=== PATIENT | female | born 1940 | race Caucasian/White ===

== ENCOUNTER 2024-08-17 15:58 | Inpatient (IN) | payer MEDICARE, SELFPAY ==
[2024-08-17 13:13] VITALS: BP 144/73
[2024-08-17 13:26] VITALS: BMI 36.7
[2024-08-17 14:21] LABS: % Basophils 0.5 % (0-2); % Eosinophils 0.1 % (0-6); % Immature Granulocytes 0.4 % (0-0.5); % Lymphocytes 7.2 % (20.5-51.1); % Monocytes 5.4 % (1.7-9.3); % Neutrophils 86.4 % (42.2-75.2); Absolute Basophils 0.1 10^3/uL (0-0.2); Absolute Lymphocytes 0.8 10^3/uL (1.2-3.4); Absolute Monocytes 0.6 10^3/uL (0.1-0.6); Absolute Neutrophils 9.7 10^3/uL (1.4-6.5); Hematocrit 27.8 % (37.0-47.0); Hemoglobin 8.5 g/dL (12.0-16.0); Mean Corp Hgb Conc. 30.6 g/dL (33.0-37.0); Mean Corpuscular Hgb 29.3 pg (27.0-31.0); Mean Corpuscular Volume 95.9 fL (81.0-99.0); Nucleated Red Blood Cells % 0 %; Platelet Count 325 10^3/uL (130-400); Red Cell Dist. Width 17.4 % (11.5-14.5); White Blood Cell Count 11.3 10^3/uL (4.8-10.8)
--- NOTE | 2024-08-17 14:35 | ED.GENMED ---
History of Present Illness
General
Chief Complaint: Breathing Problem
Time Seen by Provider: 08/17/24 13:28
History of Present Illness
History of Present Illness:
84-year-old female with history of metastatic colon cancer currently on Keytruda (managed at [facility]) presents the emergency department for evaluation of shortness of breath over the past several days. She was apparently confused earlier today as
well cording to family. She denies chest pain. Has also noted increasing leg swelling in the past week. No fevers or chills. Was exposed to COVID-19 by a family member at home
Review of Systems
Review of Systems
Allergies reviewed?: Yes
All Other Systems: ROS reviewed and negative except as documented in HPI and ROS
Phy Exam
Physical Exam
Physical Exam:
GEN: Well appearing, NAD, WDWN
HEENT: Oral mucosa moist, no scleral icterus
Cardiac: Tachycardic, regular
Lung: Tachypneic, no accessory muscle use, diminished breath sounds, no overt rales or wheezes
MSK: No gross deformity or injuries, 3+ edema bilateral lower extremities
Skin: Good color, no pallor or jaundice, no rashes
Neuro: AO x3, moves all extremities freely
Psych: Calm, cooperative
Scores
Heart Failure Risk
Heart Failure Risk Score: Yes
History of Stroke or TIA: No
History of intubation for respiratory distress: No
Heart rate on ED arrival >/= 110: Yes
SaO2 <90% on arrival on room air: Yes
HR >/=110 during 3min walk test (or too ill to perform test): Yes
ECG has acute ischemic changes: No
Urea >/=12mmol/L (BUN 33.6mg/dL): No
Serum CO2>/=35mmol/L: No
Troponin I or T elevated to DE Level (0.4mg/dL): Yes
NT-proBNP >/=5,000ng/L (5,000pg/ml): Yes
HF Risk Score: 6
Admission Status: VERY HIGH RISK 55.3% Consider admission to hospital
Sepsis
Sepsis Screening
Sepsis Assessment: Sepsis Ruled Out
Sepsis Screen
Sepsis Screen: Sepsis Ruled Out
Date: 08/17/24
Time: 15:15
Course
Orders/Labs/Results
Orders:
Orders
08/17/24 13:50
CR Chest Portable - 1 View Urgent
Comment:
Reason For Exam: SOB
Reason Study Needs to be Portable: Other
08/17/24 14:10
COVID-19 Antigen Urgent
Source: Nasal Swab
Complete Blood Count/With Diff Urgent
Comprehensive Metabolic Panel Urgent
Influenza A+B Rapid Molecular Urgent
HARVEY Source: Nasal Swab
Specimen Description:
08/17/24 14:16
NT-proBNP Urgent
Troponin I Urgent
08/17/24 14:43
Electrocardiogram (*1) Urgent
Reason for Study: Shortness of Breath
EKG- Treatment ONCE
08/17/24 14:48
Furosemide [Lasix] 40 mg IV ONCE ONE
Potassium Chloride [KCl] 40 meq PO NOW STA
Potassium Chloride [KCl] 20 meq 0.9% Sodium Chloride 150 ml [Nss] 150 ml IV NOW
Abnormal Lab Results
08/17/24 08/17/24
14:10 14:16
WBC 11.3 H 10^3/uL
(4.8-10.8)
RBC 2.90 L 10^6/uL
(4.20-5.40)
Hgb 8.5 L g/dL
(12.0-16.0)
Hct 27.8 L %
(37.0-47.0)
MCHC 30.6 L g/dL
(33.0-37.0)
RDW 17.4 H %
(11.5-14.5)
Absolute Neuts (auto) 9.7 H 10^3/uL
(1.4-6.5)
Absolute Lymphs (auto) 0.8 L 10^3/uL
(1.2-3.4)
Neutrophils % 86.4 H %
(42.2-75.2)
Lymphocytes % 7.2 L %
(20.5-51.1)
Potassium 3.2 L mmol/L
(3.5-5.1)
Carbon Dioxide 31 H mmol/L
(22-30)
BUN 22 H mg/dl
(7-17)
Glucose 120 H mg/dl
(70-99)
Troponin I 0.088 H* ng/ml
Total Protein 5.6 L g/dl
(6.3-8.2)
Albumin 3.1 L g/dl
(3.5-5.0)
08/17/24 14:10
08/17/24 14:10
Vital Signs
Initial and Last Documented VS:
Initial Vital Signs
Temp Pulse Resp BP Pulse Ox
98.4 F 114 24 144/73 85
08/17/24 13:13 08/17/24 13:13 08/17/24 13:13 08/17/24 13:13 08/17/24 13:13
Last Documented Vital Signs
Temp Pulse Resp BP Pulse Ox
97.4 F 113 24 144/73 97
08/17/24 13:20 08/17/24 13:20 08/17/24 13:20 08/17/24 13:13 08/17/24 13:20
MDM/Problems Addressed
MDM/Problems Addressed:
Clinical presentation most consistent with acute CHF evidenced by hypoxia and volume overload as well as elevated troponin and BNP. Do not suspect pulmonary embolism given lack of chest pain and alternative etiology. Will admit to the hospitalist
service for further management. Follows with a non-[facility] r&d engineer
*Critical Care Note
Total Time (30-74mins, 75-104mins- exclusive of procedures): Not Applicable
Update Note
Update Note:
Reviewed patient's labs from her health portal through [facility], her hemoglobin has been gradually downtrending since last summer when it was 10.1, most recently 9.0 in early August. She did have a CT scan of the chest in early July that showed
no cardiomegaly, there was a trace right pleural effusion but no evidence of vascular congestion. Presentation today is most consistent with acute CHF
ED Attending Note
-
Portions of this chart may have been created with voice recognition software.� Occasional wrong word or��sound alike� substitutions may have occurred due to the inherent limitations of voice recognition software.
Discharge Plan
Departure
Patient Disposition: Admit
Date of Disposition: 08/17/24
Time of Disposition: 15:13
Admit to: Med/Surg
Presentation/result/management discussed w/ accepting MD/DO: Hospitalist
Discharge Problem:
Acute CHF
Referrals:
Zac Steward DO [Family Provider] -
Interventions
Interventions:
*Risk Screen - Suicide Last Done: 08/17/24 13:20
*General Assessment Last Done: 08/17/24 13:25
*Neglect/Abuse Screening Last Done: 08/17/24 13:25
*ED COVID-19 Vaccine History Last Done: 08/17/24 13:25
Discharge Date and Time
Print Language: [place]LAND[place]
[2024-08-17 14:43] LABS: ALT (SGPT) 16 U/L (0-35); AST (SGOT) 21 U/L (14-36); Albumin 3.1 g/dl (3.5-5.0); Alkaline Phosphatase 99 U/L (38-126); Blood Urea Nitrogen 22 mg/dl (7-17); Calcium 8.4 mg/dl (8.4-10.2); Carbon Dioxide 31 mmol/L (22-30); Chloride 105 mmol/L (98-107); Estimated Creatinine Clearance 60 ml/min; Glucose 120 mg/dl (70-99); Potassium 3.2 mmol/L (3.5-5.1); Sodium 142 mmol/L (135-145); Total Bilirubin 0.5 mg/dl (0.2-1.3); Total Protein 5.6 g/dl (6.3-8.2); eGFR > 60.00
[2024-08-17 14:46] LABS: COVID-19 Antigen Negative (Negative)
[2024-08-17 15:00] VITALS: BP 150/79
[2024-08-17 15:04] LABS: NT-proBNP 13200 pg/ml; Troponin I 0.088 ng/ml
[2024-08-17] MEDS: LASIX 40 MG IV (15:41)
[2024-08-17] MEDS: KCL 40 MEQ PO (15:42)
--- NOTE | 2024-08-17 15:42 | HPS.HSE ---
Family Physician
-
Family Physician: Zac Steward
Chief Complaint
-
shortness of breath
History of Present Illness
84-year-old female past medical history of metastatic colon cancer on Keytruda last received on Sunday, uterine cancer status post hysterectomy, cancer status post lumpectomy, history of UTIs, presenting with shortness of breath over the past
several days. She was confused earlier today. She did have some pressure in her neck area with difficulty breathing yesterday. Denies any chest pain currently. She has had increased lower extremity swelling over the past week. No weight gain.
No fevers or chills. He was exposed to COVID by a family member at home.
She is also been having increased urinary frequency. Denies nausea vomiting abdominal pain or diarrhea. Denies any cough or sore throat.
She recently completed dose of Keytruda this past Sunday and usually feels tired the day after but continued to feel unwell.
EMS noted foul-smelling urine.
Denies smoking or alcohol use.
Her mother had congestive heart failure.
Medical History
Past Medical History
Past Medical History: Reports Other (metastatic colon cancer on Keytruda last received on Sunday, uterine cancer status post hysterectomy, cancer status post lumpectomy, history of UTIs)
Past Surgical History: Reports Other (hysterectomy, lumpectomy )
Social History
Tobacco: Non-smoker
Alcohol: None
Drug: None
Family History
Family History: Not pertinent
Allergies / Home Medications
Allergies reflects when Allergies were last updated in [facility].
Home Medications with original date entered in [facility]
Allergy/Medication List:
Allergies
Allergy/AdvReac Type Severity Reaction Status Date / Time
No Known Allergies Allergy Verified 08/17/24 13:13
Review of Systems
-
History Source: Patient
A 12 point ROS was completed and negative except as noted: Yes
Constitutional: Reports No Symptoms
EENT: Reports No Symptoms
Respiratory: Reports See HPI
Cardiac: Reports See HPI
Abdomen/GI: Reports No Symptoms
: Reports No Symptoms
Musculoskeletal: Reports No Symptoms
Skin: Reports No Symptoms
Neurological: Reports No Symptoms
Endocrine: Reports No Symptoms
Hematologic/Lymphatic: Reports No Symptoms
Psych: Reports No Symptoms
Physical Exam
Vital Signs
Vital Signs
Temp Pulse Resp BP Pulse Ox
97.4 F 113 24 144/73 97
08/17/24 13:20 08/17/24 13:20 08/17/24 13:20 08/17/24 13:13 08/17/24 13:20
Physical Exam
General: Well Developed, Well Nourished and No Apparent Distress
HEENT: NormoCephalic, Moist mucous membranes and Atraumatic
Respiratory: Rales
Cardiac: S1/S2, Regular Rhythm and Peripheral Edema; No Murmur or Rub
GI: Soft, Non Tender, Non Distended and Normal Bowel Sounds; No Organomegaly
Rectal: Deferred by Provider
Musculoskeletal: No Clubbing, No Cyanosis and No Edema
Skin: No Rash
Neuro: Nonfocal/grossly intact
Laboratory Results
-
08/17/24 14:10
08/17/24 14:10
Laboratory Results
Total Bilirubin 0.5 mg/dl (0.2-1.3) 08/17/24 14:10
AST 21 U/L (14-36) 08/17/24 14:10
ALT 16 U/L (0-35) 08/17/24 14:10
Alkaline Phosphatase 99 U/L (38-126) 08/17/24 14:10
Troponin I 0.088 ng/ml H* 08/17/24 14:16
Data Reviewed
-
Lab Data: Labs Reviewed by me
Old Records: Reviewed
Impression/Plan
-
IMPRESSION:
PLAN:
# Hypoxemic respiratory insufficiency secondary to new onset acute CHF exacerbation
-COVID and flu negative
-Chest x-ray shows moderate bilateral pleural effusions, cardiomegaly
-BNP of 13,000
-Check I's and O's, daily weights
-40 IV Lasix daily
-Check echo
-Cardiology consulted
-Will likely need IR for thoracentesis
# Nonischemic myocardial injury
-Troponin 0.088
-Trend troponins
# Sepsis (leukocytosis, tachycardia, tachypnea) likely secondary to urinary tract infection
-Check urinalysis
# Hypokalemia
-Replete potassium
Chronic anemia
-Hemoglobin 8.5
Metastatic colon cancer with metastases to kidney/lung
-On recent PET scan lung/kidney lesions have resolved
-On Keytruda
History of uterine cancer status post hysterectomy
History of breast cancer status post lumpectomy
Full code
DVT prophylaxis�heparin
Cardiac diet
[2024-08-17 16:00] VITALS: BP 159/94
[2024-08-17 16:48] LABS: Urine Albumin Trace (Neg - Trace); Urine Bilirubin Negative (Negative); Urine Character Clear (Clear); Urine Color Yellow; Urine Glucose Negative (Negative); Urine Ketone Negative (Negative); Urine Leukocyte Negative (Negative); Urine Nitrite Negative (Negative); Urine Occult Blood Negative (Negative); Urine Urobilinogen 1+ (Neg - 1+)
[2024-08-17 17:08] VITALS: BP 161/94; BMI 36.1
[2024-08-17] MEDS: KCL 160 MEQ IV (17:10)
[2024-08-17] MEDS: DIOVAN 80 MG PO (18:03)
--- NOTE | 2024-08-17 18:17 | PTCARENOTE ---
Received this patient with ST, which HR is 130s. is aware.
[2024-08-17 19:30] VITALS: BP 144/84
[2024-08-17] MEDS: ALDACTONE 50 MG PO (20:04)
[2024-08-17] MEDS: HEPARIN 5000 UNITS SC (20:10)
[2024-08-17] MEDS: OCUVITE SOFTGEL 1 CAP PO (20:13)
[2024-08-17] MEDS: TYLENOL 650 MG PO (20:13)
[2024-08-17 20:42] LABS: Troponin I 0.138 ng/ml
--- NOTE | 2024-08-17 21:53 | PTCARENOTE ---
Pt with some increased breathing noted. POX on 3L 96%. Explained to pt that she has some extra fluid in her lungs and will probably need to have that removed tomorrow and then she will breathe better. Pt also c/o back pain due to the bed here in the "hospital. Assisted pt in repositioning. A fan was provided for comfort. Gladis Marion notified of pt's elevated troponin of 0.138 from 0.088. EKG done as ordered with troponin. Will continue to monitor.
[2024-08-17] MEDS: NEURONTIN 100 MG PO (22:22)
[2024-08-17] MEDS: MELATONIN 5 MG PO (22:22)
[2024-08-17] MEDS: LIPITOR 10 MG PO (22:22)
[2024-08-17 23:00] VITALS: BP 157/81
[2024-08-18] VITALS (20 sets, daily range): BP systolic 22–124; BP diastolic 40–71; BMI 35.0
[2024-08-18] MEDS: XOPENEX 1.25 MG INHALANT SOLUTION INH (00:14)
--- NOTE | 2024-08-18 00:32 | W.PN.UPDATE ---
Update Note
Progress Note Update
0000 called to bedside for resp distress
84 yo female admitted last arabella for now chf and mod pleural effusions. IR consulted for thoracentesis.
On eval pt anxious, restless trying to sit up because she is having trouble catching her breath. Cannot speak in complete sentences. PT tachy and increased WOB.
Pt with wheezing and crackles bilat.
Plan:
lasix 40mg iv now
xopenex
morphine for WOB
move to IMU closer monitoring
BIPAP if not improved. Resp therapist agrees
.
[2024-08-18] MEDS: LASIX 40 MG IV ×3 (00:36→17:08)
[2024-08-18] MEDS: MORPHINE SULFATE 2 MG IV (00:39)
--- NOTE | 2024-08-18 00:50 | PTCARENOTE ---
Called into patients room. Patient short of breath using accessory muscles stating 'I can't breath'. Gladis MUNGUIA notified. BP was 157/81 and she was 94% O2 on 3 liters. Respiratory therapy gave her a breathing treatment of Xopenex. Gladis
Doni MUNGUIA at bedside, obtained orders for 40 mg IV Lasix and 2 mg IV Morphine which were both administered. Report called to IMU and patient transferred.
[2024-08-18] MEDS: ZOFRAN 4 MG IV (01:35)
--- NOTE | 2024-08-18 01:40 | PTCARENOTE ---
Received pt from [facility]. Pt is AAOx3. Sinus tach on the monitor. Received pt on 3L O2 sat 88%, O2 increased to 6L O2 sat now 98%, lungs diminished/wheezing. Pt incont x2, pw in place. Pt c/o nausea, RETAIL HELPER Arvind notified, Zofran x1 given (see MAR).
CHG bath provided. Pt updated about plan of care. Call estrada in reach. Safe environment maintained.
[2024-08-18 03:01] LABS: Troponin I 0.131 ng/ml
[2024-08-18 06:04] LABS: % Basophils 0.4 % (0-2); % Eosinophils 0.1 % (0-6); % Immature Granulocytes 0.4 % (0-0.5); % Lymphocytes 4.6 % (20.5-51.1); % Monocytes 5.8 % (1.7-9.3); % Neutrophils 88.7 % (42.2-75.2); Absolute Basophils 0.1 10^3/uL (0-0.2); Absolute Immature Granulocytes 0.1 10^3/uL (0-0.05); Absolute Lymphocytes 0.7 10^3/uL (1.2-3.4); Absolute Monocytes 0.8 10^3/uL (0.1-0.6); Absolute Neutrophils 12.5 10^3/uL (1.4-6.5); Hematocrit 29.8 % (37.0-47.0); Hemoglobin 8.9 g/dL (12.0-16.0); Mean Corp Hgb Conc. 29.9 g/dL (33.0-37.0); Mean Corpuscular Hgb 29.3 pg (27.0-31.0); Mean Platelet Volume 9.6 fL (7.4-10.4); Nucleated Red Blood Cells % 0 %; Platelet Count 317 10^3/uL (130-400); Red Blood Cell Count 3.04 10^6/uL (4.20-5.40); Red Cell Dist. Width 17.5 % (11.5-14.5); White Blood Cell Count 14.1 10^3/uL (4.8-10.8)
[2024-08-18 06:48] LABS: ALT (SGPT) 16 U/L (0-35); AST (SGOT) 23 U/L (14-36); Albumin 3.3 g/dl (3.5-5.0); Alkaline Phosphatase 101 U/L (38-126); Blood Urea Nitrogen 26 mg/dl (7-17); Calcium 8.5 mg/dl (8.4-10.2); Carbon Dioxide 30 mmol/L (22-30); Chloride 106 mmol/L (98-107); Estimated Creatinine Clearance 51 ml/min; Glucose 120 mg/dl (70-99); Sodium 144 mmol/L (135-145); Total Bilirubin 0.5 mg/dl (0.2-1.3); Total Protein 5.8 g/dl (6.3-8.2); eGFR > 60.00
--- NOTE | 2024-08-18 07:18 | PTCARENOTE ---
Assumed care of pt at approx 0200. Pt A/O x4, no c/o pain, ST on monitor low 100s, +1 pedal pulses, +3 pitting edema to BLE, pt on 6LNC with scattered crackles auscultated throughout, purewick in place. Pt asking to have legs 'put down', chair
position in bed would not suffice for her, pt assisted OOB to recliner with x2 assist and rolling walker and pt was much happier. Has been OOB since around 0300.
--- NOTE | 2024-08-18 08:00 | CON.CAR ---
Addendum entered and electronically signed by Cyrus Winkler MD 08/18/24 10:45:
I saw and examined the patient.
The ARCHAEOLOGIST's note was reviewed and I agree with the note.
Comment:
84-year-old female (known to Dr. 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
the lung, right adrenal, and spleen (on Keytruda, managed by [facility]), who presented to the emergency department with a chief complaint of shortness of breath. She also notes recent leg swelling. Labs are notable for BNP 13,000, troponin peak 0.138.
CXR showed moderate bilateral pleural effusions. ECG with sinus tachycardia (HR 116), LVH with repolarization abnormalities and possible septal infarct (no prior for comparison). Last echocardiogram on 06/03/2024 revealed normal LVEF (50-55%),
mild mitral stenosis. Telemetry reveals sinus rhythm with heart rate in the 100s and 1 episode of nonsustained VT (10 beats). On exam, she is on 3 L nasal cannula and breathing comfortably. She has produced breath sounds at the bilateral bases.
CV exam is notable for regular rhythm, fast rate, no murmurs, rubs, or gallops. Suspect that her shortness of breath is at least in part due to heart failure exacerbation. We will increase her Lasix to 40 mg IV twice daily and monitor. We will
update an echocardiogram. Possible thoracentesis with interventional radiology. In terms of GDMT for HFpEF, she is already on spironolactone and is not on SGLT2 inhibitor due to frequent UTIs. Her troponin elevation is likely due to nonischemic
myocardial injury. She has no chest pain and no ischemic ECG changes. Cardiology will continue to follow along.
Original Note:
Consultation
Consultation Request
Date/Time Consultation Requested: 08/17/2024 23:00
Date/Time Consultation Performed: 08/18/2024 07:45
Requesting Provider: Dr. Oneil
Performing Provider: NILDA Castro for Dr. Winkler
Reason for Consultation: Acute heart failure
Medical History
-
Chief Complaint: Shortness of breath
History of Present Illness:
Britni Purcell is an 84-year-old female (known to Dr. 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
cancer with metastasis to the lung, right adrenal, and spleen (on Keytruda, managed by [facility]), who presented to the emergency department with a chief complaint of shortness of breath. She reports she was short of breath for about 24 hours prior to
arrival. She denies chest pain. She does endorse increased swelling of her bilateral lower extremities. It sounds like she always has some lower extremity edema but they are worse. She also endorses urinary frequency. She does get frequent
UTIs. She was found to be hypoxic with bilateral pleural effusions on her chest x-ray along with an elevated proBNP. Diuresis was started (furosemide 40 mg). She does not weigh herself at home.
She had a recent admission at [facility] in late May after she had weakness. She could not get herself off the toilet. She sat down from 10 PM to 5 AM the next day and when her son was trying to help her she fell and hit her
knee. She was admitted with SIRS as she had tachypnea, tachycardia, and leukocytosis (white blood cells 20). Her UA was positive for nitrates along with many bacteria. Her CK was over 1200 on admission. She had an JON which resolved. It does
not sound like she had heart failure with this admission.
Past Medical History
Past Medical History: Cancer (metastatic colon cancer, endometrial), HTN and Hypercholesterolemia
Past Surgical History: Gynecological and Orthopedic
Social History
Tobacco: Non-Smoker
Alcohol: None
Drug: None
Personal:
Living: With Family
Employment: Retired
Family History
Family History: Reviewed & Not Pertinent
Allergies / Home Medications
Allergy/AdvReac Type Severity Reaction Status Date / Time
No Known Allergies Allergy Verified 08/17/24 13:13
�Medication �Instructions �Recorded �Confirmed �Type
acetaminophen 325 mg tablet 650 mg PO DAILYPRN PRN mild pain 08/17/24 08/17/24 History
biotin 5 mg tablet 5 mg PO DAILY 08/17/24 08/17/24 History
citalopram 10 mg tablet 10 mg PO DAILY 08/17/24 08/17/24 History
cyanocobalamin (vitamin B-12) 1,000 mcg PO DAILY 08/17/24 08/17/24 History
1,000 mcg tablet
gabapentin 100 mg capsule 100 mg PO HS 08/17/24 08/17/24 History
mirabegron 25 mg tablet,extended 25 mg PO DAILY 08/17/24 08/17/24 History
release 24 hr (Myrbetriq)
pitavastatin calcium 2 mg tablet 2 mg PO Q48H 08/17/24 08/17/24 History
(Livalo)
spironolactone 50 mg tablet 50 mg PO BID 08/17/24 08/17/24 History
valsartan 80 mg tablet 80 mg PO QPM 08/17/24 08/17/24 History
vitamins A,C,W-lmwu-qzqatl 4,296 1 cap PO BID 08/17/24 08/17/24 History
mcg-226 mg-90 mg capsule
(PreserVision AREDS)
Review of Systems
-
History Source: Patient
All other systems: Negative unless noted
Constitutional: Fatigue
EENT: No Symptoms
Respiratory: Trouble Breathing
Cardiac: No Symptoms
Abdomen/GI: No Symptoms
: No Symptoms
Musculoskeletal: No Symptoms
Skin: No Symptoms
Neurological: No Symptoms
Endocrine: No Symptoms
Hematologic/Lymphatic: No Symptoms
Physical Exam
Vital Signs
Temp Pulse Resp BP Pulse Ox
97.5 F 102 20 112/54 99
08/18/24 07:43 08/18/24 07:00 08/18/24 07:00 08/18/24 06:00 08/18/24 07:00
Lab Results
08/18/24 05:50
08/18/24 05:50
Troponin I 0.131 ng/ml H* 08/18/24 02:10
Dlk-T-Ypkmkpmosxp Pept 81307 pg/ml 08/17/24 14:16
Physical Exam
General: Well Developed, Well Nourished, No Apparent Distress and Comfortable
HEENT: Normocephalic, Anicteric and Moist Mucous Membranes
Respiratory: Crackles and Non Labored Respirations
Cardiac: Regular Rhythm (tachycardia) and Peripheral Edema
Breast: Deferred by me
GI: Soft, Non Tender, Non Distended and Normal Bowel Sounds
Rectal: Deferred by Provider
Genito-urinary: No Costovertebral Tender
Musculoskeletal: No Clubbing and No Cyanosis
Skin: Warm and Dry
Neuro: AO x 3
Hematologic/Lymphatic: No Lymphadenopathy
Psych: Calm
Impression / Plan
-
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
Primary file drawer finisher: Dr. 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
Sepsis, in the setting of UTI
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
-Not requiring vasopressor support
HFpEF (EF 50-55%), acute
-She presented with bilateral pleural effusions, hypoxia, orthopnea, and had a proBNP of 13,200
-Diuresis with furosemide 40 mg IV twice daily
-No SGLT2i as she has had frequent UTIs
-Some of her lower extremity edema is chronic
-Update echocardiogram
-Trend daily weight, I/O, and BMP with diuresis
-Heart failure education
Pleural effusions, bilateral - IR consulted for thoracentesis
Abnormal troponin, nonischemic myocardial injury in the setting of acute on chronic heart failure
-Peak troponin 0.138
-Chest pain free
HTN, stable, follow with diuresis
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
-On palliative systemic therapy with Keytruda (Dr. Solares), last dose 08/13/2024
-She deferred surgery as she declined a colostomy
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
Prior breast cancer status postlumpectomy
Anemia of chronic disease
SUBJECTIVE:
+Orthopnea
DATA:
TTE, 05/26/2024 ([facility]):
EF 50-55%.
Mild cLVH. Mildly thickened aortic valve leaflets.
Mild mitral valve stenosis, mitral valve area 1.6 cm�, peak gradient 12 with mean of 7.
Data Reviewed
-
EKG: Report Reviewed by me
Medical Tests (Nuc Med, Echo etc): Report Reviewed by me
Labs: Discussed with Physician
Old Records: Reviewed
[2024-08-18] MEDS: MYRBETRIQ EXTENDED RELEASE 25 MG PO (08:56)
[2024-08-18] MEDS: VITAMIN B-12 1000 MCG PO (08:56)
[2024-08-18] MEDS: CELEXA 10 MG PO (08:56)
[2024-08-18] MEDS: ALDACTONE 50 MG PO (08:56)
[2024-08-18] MEDS: OCUVITE SOFTGEL 1 CAP PO ×2 (08:56→21:21)
[2024-08-18] MEDS: HEPARIN 5000 UNITS SC ×2 (08:57→21:21)
[2024-08-18] MEDS: TYLENOL 650 MG PO (09:27)
--- NOTE | 2024-08-18 10:21 | PTCARENOTE ---
Update with cardiology follow up CHF teaching, Heart failure packet to be provided. Patient incontinent large amount of urine and stool at this time. Return to bed for echo. Await hospitalist for pt/ot order and follow up level of cares. Updated
assessment, vital signs ongoing and as documented. Skin cares oral carwes as per unint based protocol. Patient update with son via phone will follow with hospitalist team on am rounds.
--- NOTE | 2024-08-18 11:23 | PTCARENOTE ---
Update with hospitalist team. Follow up plan of cares. Son at bedside with update provided. Continue with skin cares and hygiene as needed. Will await follow up IR team and possible tap.
--- NOTE | 2024-08-18 13:36 | PTCARENOTE ---
Update with Hospitalist team. Patient to IR for tap. Will follow up plan of cares post. Patient continues to diuresis post am last. Skin cares as needed.
--- NOTE | 2024-08-18 14:08 | W.PN.HOSP.TC ---
Today's Communication/Plan
-
Assessment / Plan
Assessment / Plan
Appears uncomfortable tired
Scleral Anicteric
MMM
JVD positive
Crackles throughout all lung [place]
RRR, S1/S2
Soft, NT, ND, BS+
2+ pitting edema
Warm, Dry
AAOx3
Calm
Acute hypoxemic respiratory failure, document SpO2 85%, second Miguel to acute heart failure exacerbation last known EF 50 to 55% per cardiology documentation and was previously on MRAs therefore likely has a history of chronic HFpEF. Therefore this
is acute on chronic HFpEF exacerbation
-IV Lasix
-Monitor urinary output
-Daily weights
-Follow renal function
-Keep K greater than 4, magnesium greater than 2
-Continue MRA
-SGLT2 inhibitor contraindicated due to history of UTIs
-2D echocardiogram
-Cardiology consult
-Wean oxygen as tolerated
Nonischemic myocardial injury in the setting of acute on chronic heart failure
-Downtrending
-Check 2d echo
-EKG
Metastatic colon cancer with mets to kidneys lungs
On Keytruda
Anticipated Discharge: > 48 hours
Subjective/Interval History
-
Date of Service: August 18, 2024
Seen and examined. No new complaints. No acute overnight events.
Son at bedside
Asking when she will be going home
Objective Data
-
Labs:
Laboratory Results
08/18/24
05:50
WBC 14.1 H
Hgb 8.9 L
Hct 29.8 L
Plt Count 317
Sodium 144
Potassium 4.0
Chloride 106
Carbon Dioxide 30
BUN 26 H
Creatinine 0.8
Glucose 120 H
Calcium 8.5
Total Bilirubin 0.5
AST 23
ALT 16
Alkaline Phosphatase 101
Vital Signs:
Vital Signs
Temp Pulse Resp BP Pulse Ox
99 F 100 18 103/45 100
08/18/24 13:34 08/18/24 14:00 08/18/24 14:00 08/18/24 14:00 08/18/24 14:00
I&O
08/17/24 08/18/24 08/19/24
06:59 06:59 06:59
Intake Total 480 / 480 270 / 270
Balance 480 / 480 270 / 270
[2024-08-18 14:41] LABS: Body Fluid Glucose 114 mg/dl; Body Fluid LDH < 90 U/L; Body Fluid Protein < 2.0 g/dl
[2024-08-18 14:50] LABS: Body Fluid Mononuclear 90.1 %; Body Fluid Polymorphonuclear 9.9 %; Body Fluid WBC 403 /CUMM
[2024-08-18 15:15] LABS: Body Fluid Second Tech FB
--- NOTE | 2024-08-18 16:12 | CM ---
CM folioing re: discharge planing.
Reviewed pt's chart, met with pt and pt's son Tucker at bedside.
Pt is an 84 year old female, admitted with primary dx of CHF.
Per son Tucker, pt lives with son Elliot [facility], pt stays on 1st floor, son lives with his family on second floor. Per son, pt has private caregiver twise a week and son feels that pt needs more care. A list of private duty caregiver services provided
to pt's son.
PT and OT will evaluate the pt to determine a level of care at discharge.
D/C plan: uncertain at this time and will depend on pt's progress
CM will follow with discharge plan updates as hospitalization progresses.,
[2024-08-18] MEDS: DIOVAN PO (18:07)
[2024-08-18] MEDS: NEURONTIN 100 MG PO (21:21)
[2024-08-18] MEDS: ALDACTONE PO (22:22)
--- NOTE | 2024-08-18 22:42 | PTCARENOTE ---
Assumed care of pt at 1900. Pt is A/O x3-4, sleeping at start of shift, confused about the days events due to sleeping most of the day, did not recall her sons visiting with her during the day. Pt reoriented as needed. Pt able to call and talk with
her son on her cell and was set up for dinner around 1999 and ate 100% of it. Pt pleasant and cooperative with care. No c/o pain. See nursing shift assessment flowsheet for full physical assessment details. Pt's BP running low, HS Aldactone dose
held, House BREAD BAKER Yeyo Rosado made aware. Pt is asymptomatic with the hypotension. ST low 100s on monitor. Pt bathed at bedtime with CHG wipes, jameson care done with soap and water as pt had had a moderate amount of liquid stool. Purewick removed and not
replaced due to loose stools. All linens and gown changed. Pt able to brush her teeth once set up to do so. Pt now resting with eyes closed, call estrada and personal items within reach. Pt is IMU level of care.
[2024-08-19] VITALS (16 sets, daily range): BP systolic 94–109; BP diastolic 41–54; BMI 34.0
[2024-08-19 04:44] LABS: Hematocrit 27.6 % (37.0-47.0); Mean Corpuscular Hgb 29.3 pg (27.0-31.0); Mean Corpuscular Volume 101.1 fL (81.0-99.0); Mean Platelet Volume 9.6 fL (7.4-10.4); Platelet Count 291 10^3/uL (130-400); Red Blood Cell Count 2.73 10^6/uL (4.20-5.40); Red Cell Dist. Width 17.3 % (11.5-14.5); White Blood Cell Count 12.4 10^3/uL (4.8-10.8)
[2024-08-19 05:06] LABS: Blood Urea Nitrogen 33 mg/dl (7-17); Calcium 8.2 mg/dl (8.4-10.2); Carbon Dioxide 33 mmol/L (22-30); Chloride 105 mmol/L (98-107); Estimated Creatinine Clearance 41 ml/min; Glucose 120 mg/dl (70-99); Potassium 3.9 mmol/L (3.5-5.1); Sodium 143 mmol/L (135-145); eGFR 55.55
--- NOTE | 2024-08-19 08:00 | PTCARENOTE ---
received patient from mini shifter, patient is drowsy, arousable, oriented to self and place, unsure of day. she is on 4L nasal cannula, diminished throughout. is sinus rhythm on monitor. patient is IMU status. incontinent of bowel and bladder.
SKin is intact, slightly reddened in lower extremities, will review orders, bed alarm on and call estrada within reach.
--- NOTE | 2024-08-19 08:12 | W.PN.CD ---
Today's Communication / Plan
-
continue diuresis
cm to lai entresto
Impression / Plan
-
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
Primary branch rental manager: Dr. 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
HFpEF (EF 50-55%), acute
-repeat echo 08/18/24 : Normal left ventricular size with mildly reduced systolic function. LVEF 45-
50%. Global hypokinesis, worse in the inferior apex.
-etiology suspicious Keytruda
-She presented with bilateral pleural effusions, hypoxia, orthopnea, and had a proBNP of 13,200
-Diuresis with furosemide 40 mg IV twice daily
-No SGLT2i as she has had frequent UTIs
-continue valsartan, spironolactone, whe bp stablizes can consider transition to Entresto, will ask CM to lai
-bb if bp allows
-Some of her lower extremity edema is chronic
-Trend daily weight, I/O, and BMP with diuresis
-Heart failure education
Pleural effusions, bilateral -
-Rt s/p Thora -600cc clear fluid
-continue diuresis
Abnormal troponin, nonischemic myocardial injury in the setting of acute on chronic heart failure
-Peak troponin 0.138
-Chest pain free
HTN, stable, follow with diuresis
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
-On palliative systemic therapy with Keytruda (Dr. Solares), last dose 08/13/2024
-will need to consider ongoing therapy candidacy with Oncology at op given new CMY
-She deferred surgery as she declined a colostomy
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
Prior breast cancer status postlumpectomy
Anemia of chronic disease
SUBJECTIVE:
feeling a bit better since yesterday still sob.
DATA:
TTE 08/18/24 CONCLUSIONS
Normal left ventricular size with mildly reduced systolic function. LVEF 45-
50%.
Global hypokinesis, worse in the inferior apex.
Normal right ventricular size and function.
Moderate mitral stenosis. Peak/mean gradients across the mitral valve are 14/6
mmHg.
Mild tricuspid regurgitation with mildly elevated pulmonary pressures (41
mmHg).
Pleural effusion present.
No prior study available for comparison.
TTE, 05/26/2024 ([facility]):
EF 50-55%.
Mild cLVH. Mildly thickened aortic valve leaflets.
Mild mitral valve stenosis, mitral valve area 1.6 cm�, peak gradient 12 with mean of 7.
Physical Exam
Vital Signs/Labs
Vital Signs
Temp Pulse Resp BP Pulse Ox
98.6 F 101 22 106/52 100
08/19/24 07:59 08/19/24 06:00 08/19/24 06:00 08/19/24 06:00 08/19/24 05:00
08/18/24 08/19/24 08/20/24
06:59 06:59 06:59
Actual Weight 83.9 kg 81.6 kg
08/19/24 04:20
08/19/24 04:20
08/17/24
14:16
Nfx-S-Wkrsnuwdnsz Pept [id number]
LAB Results
08/17/24 08/17/24 08/17/24
14:16 16:41 20:07
Troponin I 0.088 H* Cancelled 0.138 H* D
08/17/24 08/18/24
22:41 02:10
Troponin I Cancelled 0.131 H*
Physical Exam
Constitutional: No acute distress
Cardiovascular: Rhythm & rate is regular, Systolic murmur absent, Diastolic murmur absent and Pedal edema present (1+ b/l )
Respiratory: Respiratory effort normal and Crackles Present (b/l 1/2 up)
Neuro/Psych: AO x 3
Data Reviewed
-
Date of Service: August 19, 2024
Medical Decision Making: Review of Case with other Provider (Dr Juan, ef down continue diuresis eventual GDMT titration)
EKG: Other (tele sinus tachycardia with brief runs pSVT (AT))
[2024-08-19] MEDS: VITAMIN B-12 1000 MCG PO (08:14)
[2024-08-19] MEDS: ALDACTONE 50 MG PO ×2 (08:14→19:51)
[2024-08-19] MEDS: MYRBETRIQ EXTENDED RELEASE 25 MG PO (08:14)
[2024-08-19] MEDS: LASIX 40 MG IV ×2 (08:15→16:26)
[2024-08-19] MEDS: HEPARIN 5000 UNITS SC ×2 (08:15→19:51)
[2024-08-19] MEDS: CELEXA 10 MG PO (08:16)
[2024-08-19] MEDS: OCUVITE SOFTGEL 1 CAP PO ×2 (08:16→19:51)
[2024-08-19] MEDS: TYLENOL 650 MG PO (10:29)
--- NOTE | 2024-08-19 11:53 | PTCARENOTE ---
Iv diuresis for another day per cardiology. patient downgraded to IVU
--- NOTE | 2024-08-19 14:16 | W.PN.HOSP.TC ---
Today's Communication/Plan
-
Assessment / Plan
Assessment / Plan
Appears uncomfortable tired
Scleral Anicteric
MMM
JVD positive
Crackles throughout all lung [place]
RRR, S1/S2
Soft, NT, ND, BS+
2+ pitting edema
Warm, Dry
AAOx3
Calm
Acute hypoxemic respiratory failure, document SpO2 85%, second Miguel to acute heart failure exacerbation last known EF 50 to 55% per cardiology documentation and was previously on MRAs therefore likely has a history of chronic HFpEF. Therefore this
is acute on chronic HFpEF exacerbation
-IV Lasix
-Monitor urinary output
-Daily weights
-Follow renal function
-Keep K greater than 4, magnesium greater than 2
-Continue MRA
-SGLT2 inhibitor contraindicated due to history of UTIs
-2D echocardiogram completed
-Cardiology consult
-Wean oxygen as tolerated
Nonischemic myocardial injury in the setting of acute on chronic heart failure
-Downtrending
-Check 2d echo
-EKG
Metastatic colon cancer with mets to kidneys lungs
On Keytruda, if believe this heart failure exacerbation is related to Keytruda will need to have oncology come by to evaluate
Anticipated Discharge: > 48 hours
Subjective/Interval History
-
Date of Service: August 19, 2024
Seen and examined. No new complaints. No acute overnight events.
Objective Data
-
Labs:
Laboratory Results
08/19/24
04:20
WBC 12.4 H
Hgb 8.0 L
Hct 27.6 L
Plt Count 291
Sodium 143
Potassium 3.9
Chloride 105
Carbon Dioxide 33 H
BUN 33 H
Creatinine 1.0
Glucose 120 H
Calcium 8.2 L
Vital Signs:
Vital Signs
Temp Pulse Resp BP Pulse Ox
99.7 F 103 19 103/49 97
08/19/24 11:38 08/19/24 13:00 08/19/24 13:00 08/19/24 12:14 08/19/24 13:00
I&O
08/18/24 08/19/24 08/20/24
06:59 06:59 06:59
Intake Total 480 / 480 750 / 750
Output Total 300 / 300
Balance 480 / 480 450 / 450
--- NOTE | 2024-08-19 15:37 | PTCARENOTE ---
Patient was eating lunch, pulse ox alarm was sounding, pulse ox went to 64%, patient was found to be having difficulty breathing, NRB placed, Respiratory paged and at bedside, NT suctioned a piece of chicken from patient. [facility] and Pulmonology
made aware.
[2024-08-19] MEDS: DIOVAN PO (16:51)
--- NOTE | 2024-08-19 16:52 | PTCARENOTE ---
Speech to recommend soft bite size diet with meds whole in puree. Aspiration precautions
--- NOTE | 2024-08-19 17:21 | PTOTSP ---
ST Acute Care Evaluation
Pt currently presents with clinical signs of mild oropharyngeal dysphagia characterized by prolonged mastication and bolus formation, reduced bolus formation, and occasional coughing following ingestion of liquids (difficult to differentiate from
possible residual tracheal irritation from earlier choking event).
Recommendations:
- Initiate PO diet of SOFT BITE SIZED SOLIDS with THIN LIQUIDS and meds whole in puree.
- ASPIRATION PRECAUTIONS: HOB upright for ALL PO intake; small bites/sips; slow intake rate; alternate bites/sips.
- GROUP SALES COORDINATOR to f/u re: diet tolerance and to determine if pt would benefit from an instrumental swallow study.
--- NOTE | 2024-08-19 20:00 | PTCARENOTE ---
rec'd pt resting in bed, forgetful, needs reorientation to time, DODGE weakly, ST, bp stable, + pulses, skin warm/dry, O2 6 liters nc, lungs decr in bases, sat 96, + GUERRERO, + bowel sounds, abd obese, soft, no n/v, inc clear mucoid stool, inc of urine
[2024-08-19] MEDS: NEURONTIN 100 MG PO (22:02)
[2024-08-19] MEDS: LIPITOR 10 MG PO (22:03)
--- NOTE | 2024-08-19 23:41 | PTCARENOTE ---
sys reviewed, lungs coarse in bases, when o2 off sat drops to 74%, CHG bath done , linens changed
[2024-08-20] VITALS (25 sets, daily range): BP systolic 91–117; BP diastolic 40–61; PULSE 2–94; BMI 34.6
--- NOTE | 2024-08-20 01:10 | PTCARENOTE ---
pt sleeping, sats 88%, mouth breathing, resp therapist changed pt to 50% Venti mask, sats still 88%, changed to prb mask by resp therapist, lungs decr , shallow throughout, sat 99
--- NOTE | 2024-08-20 03:05 | PTCARENOTE ---
sys reviewed, no changes
[2024-08-20 05:57] LABS: Hematocrit 26.8 % (37.0-47.0); Mean Corp Hgb Conc. 29.9 g/dL (33.0-37.0); Mean Corpuscular Hgb 29.4 pg (27.0-31.0); Mean Corpuscular Volume 98.5 fL (81.0-99.0); Mean Platelet Volume 9.8 fL (7.4-10.4); Platelet Count 280 10^3/uL (130-400); Red Blood Cell Count 2.72 10^6/uL (4.20-5.40); White Blood Cell Count 13.7 10^3/uL (4.8-10.8)
[2024-08-20 06:13] LABS: Blood Urea Nitrogen 42 mg/dl (7-17); Calcium 8.5 mg/dl (8.4-10.2); Carbon Dioxide 31 mmol/L (22-30); Chloride 101 mmol/L (98-107); Estimated Creatinine Clearance 37 ml/min; Glucose 116 mg/dl (70-99); Potassium 3.7 mmol/L (3.5-5.1); Sodium 139 mmol/L (135-145); eGFR 49.55
[2024-08-20] MEDS: LASIX 40 MG IV ×2 (08:44→15:58)
[2024-08-20] MEDS: HEPARIN 5000 UNITS SC (08:45)
--- NOTE | 2024-08-20 10:30 | PTOTSP ---
Speech Language Pathology
Pt seen for dysphagia tx. Touched ice to lips. Minimal oral movements, but when asked to lick lips, she did. Provided drop of water on lips and asked to lick lips with no response. Terminated session. Pt is not appropriate for P.O. intake given
current lethargy. Would recommend instrumental swallowing assessment before considering P.O. again given significant choking episode 08/19 coupled with pt report of pressure in neck area day GENETICS PHYSICIAN (listed in MD notes).
Recommend:
(1) Strict NPO
(2) Oral care 4x/day with suctioning as needed
(3) Non-oral meds
(4) VSE prior to diet advancement. Not appropriate this date.
(5) SHAREPOINT APPLICATION ARCHITECT to continue to follow
[2024-08-20] MEDS: VITAMIN B-12 PO (10:36)
[2024-08-20] MEDS: CELEXA PO (10:36)
[2024-08-20] MEDS: MYRBETRIQ EXTENDED RELEASE PO (10:36)
[2024-08-20] MEDS: ALDACTONE PO ×2 (10:36→19:43)
[2024-08-20] MEDS: OCUVITE SOFTGEL PO ×2 (10:36→19:43)
--- NOTE | 2024-08-20 10:41 | W.PN.CD ---
Today's Communication / Plan
-
Continue diuresis with 40 mg IV Lasix twice daily
If no improvement tomorrow may need to consider RHC
Will make n.p.o. past midnight
Impression / Plan
-
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
Primary knockout man: Dr. 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
She remains hypoxic today, satting in mid 80s on 6L NC. Weight is uptrending (albeit they are bed weights) despite diuresis and her creatinine is rising. She examines fairly euvolemic. We will try diuresis for 1 more day, but if she has not
improved tomorrow I think she may need a right heart catheterization. I will make her n.p.o. past midnight in case. Low suspicion for PE given normal right heart on echo though it is certainly possible with her malignancy. Will avoid CT PE right
now given her rising creatinine but we may need to consider this if no improvement with diuresis.
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
-repeat echo 08/18/24 : Normal left ventricular size with mildly reduced systolic function. LVEF 45-50%. Global hypokinesis, worse in the inferior apex.
-etiology suspicious Keytruda
-She presented with bilateral pleural effusions, hypoxia, orthopnea, and had a proBNP of 13,200
-Diuresis with furosemide 40 mg IV twice daily
-No SGLT2i as she has had frequent UTIs
-continue valsartan, spironolactone, when bp stablizes can consider transition to Entresto, will ask CM to lai
-bb if bp allows
-Some of her lower extremity edema is chronic
-Trend daily weight, I/O, and BMP with diuresis
-Heart failure education
Pleural effusions, bilateral -
-Rt s/p Thora -600cc clear fluid (08/18/23)
-continue diuresis
Abnormal troponin, nonischemic myocardial injury in the setting of acute on chronic heart failure
-Peak troponin 0.138
-Chest pain free
HTN, stable, follow with diuresis
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
-On palliative systemic therapy with Keytruda (Dr. Solares), last dose 08/13/2024
-will need to consider ongoing therapy candidacy with Oncology at op given new CMY
-She deferred surgery as she declined a colostomy
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
Prior breast cancer status postlumpectomy
Anemia of chronic disease
SUBJECTIVE:
Feels better today. Satting in the mid 80s on 6 L nasal cannula. She received 40 mg IV Lasix twice daily yesterday. Creatinine 0.8-1.1 today. Weight is 83.1 kg from 81.6 kg yesterday. No events on telemetry.
DATA:
TTE 08/18/24 CONCLUSIONS
Normal left ventricular size with mildly reduced systolic function. LVEF 45-
50%.
Global hypokinesis, worse in the inferior apex.
Normal right ventricular size and function.
Moderate mitral stenosis. Peak/mean gradients across the mitral valve are 14/6
mmHg.
Mild tricuspid regurgitation with mildly elevated pulmonary pressures (41
mmHg).
Pleural effusion present.
No prior study available for comparison.
TTE, 05/26/2024 ([facility]):
EF 50-55%.
Mild cLVH. Mildly thickened aortic valve leaflets.
Mild mitral valve stenosis, mitral valve area 1.6 cm�, peak gradient 12 with mean of 7.
Physical Exam
Vital Signs/Labs
Vital Signs
Temp Pulse Resp BP Pulse Ox
98 F 110 26 111/61 100
08/20/24 07:21 08/20/24 10:00 08/20/24 10:00 08/20/24 10:00 08/20/24 10:00
08/19/24 08/20/24 08/21/24
06:59 06:59 06:59
Actual Weight 81.6 kg 83.1 kg
08/20/24 05:27
08/20/24 05:27
08/17/24
14:16
Knh-W-Vhjwsekynaq Pept [id number]
LAB Results
08/17/24 08/17/24 08/17/24
14:16 16:41 20:07
Troponin I 0.088 H* Cancelled 0.138 H* D
08/17/24 08/18/24
22:41 02:10
Troponin I Cancelled 0.131 H*
Physical Exam
Constitutional: No acute distress
Cardiovascular: Rhythm & rate is regular (Tachycardic), Pedal edema is absent, S1S2 is normal and Murmur/rub/gallop absent
Respiratory: Labored respirations, Crackles Present and Rhonchi Present
Data Reviewed
-
Date of Service: August 20, 2024
Medical Decision Making: Reviewed Test Results, Independent Historian Assessment, Test Interpretation and Review of Case with other Provider
EKG: Tracing Personally Visualized and interpreted
Echo: Tracing Personally Visualized and interpreted
X-Ray/CT/US/MRI/NUC/PET: Image Personally Visualized and interpreted, Discussed with Physician and Discussed with Patient
Labs: Labs Reviewed by me
[2024-08-20 11:01] LABS: Venous Blood Gas B.E. 4.6 mmol/L (-4 to +4); Venous Blood Gas HCO3 32.2 mmol/L (22-27); Venous Blood Gas O2 Sat % 99.7 %; Venous Blood Gas pCO2 67 mmHg (35-48); Venous Blood Gas pH 7.29 (7.32-7.43); Venous Blood Gas pO2 168 mmHg (30-50)
--- NOTE | 2024-08-20 11:05 | CM ---
CM following re: discharge planning.
Reviewed pt's chart, met with pt and pt's son Elliot at bedside. Pt feels lethargic, on 6L NC, continue supportive care.
CM met with pt's son Elliot and Tucker yesterday. Both pt and her sons are aware of pt's current health situation.
PT and OT will evaluate the pt when clinically appropriate to determine a level of care at discharge.
D/C plan: uncertain at this time and will depend on pt's progress.
CM will follow with discharge plan updates as hospitalization progresses
--- NOTE | 2024-08-20 11:19 | CON.INTV ---
Consultation
Consultation Request
Date/Time Consultation Requested: 08/20/2024-11:30 AM
Date/Time Consultation Performed: 08/20/2019 5-11 45 AM
Requesting Provider: Hospitalist
Performing Provider: Dr. Limon
Reason for Consultation: Respiratory failure/critical care management
Medical History
-
Chief Complaint: Shortness of breath
History of Present Illness:
84-year-old never smoking female with a history of uterine cancer/hysterectomy, breast cancer status postlumpectomy and metastatic colon cancer on Keytruda last received 1 week [employer]INE [employer] presented with confusion and increasing shortness of breath found to
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 Patient is quite lethargic and difficult to arouse and review of systems was unobtainable
Past Medical History
Past Medical History: None (Recurrent UTIs. Uterine cancer status post hysterectomy. Breast cancer status postlumpectomy. Metastatic colon cancer on Keytruda.)
Social History
Tobacco: Non-smoker
Alcohol: None
Drug: None
Living: With Family
Occupational Exposures: No known asbestos exposure
Environmental Exposures: No known tuberculosis exposure
Family History
Family History: Reviewed & Not Pertinent
Allergies / Home Medications
Allergies
Allergy/AdvReac Type Severity Reaction Status Date / Time
No Known Allergies Allergy Verified 08/17/24 13:13
Home Medications
�Medication �Instructions �Recorded �Confirmed �Last Taken �Type
acetaminophen 325 mg tablet 650 mg PO DAILYPRN PRN mild pain 08/17/24 08/17/24 08/17/24 History
biotin 5 mg tablet 5 mg PO DAILY Supplement 08/17/24 08/17/24 Unknown History
citalopram 10 mg tablet 10 mg PO DAILY Mental 08/17/24 08/17/24 Unknown History
Health/Anxiety
cyanocobalamin (vitamin B-12) 1,000 mcg PO DAILY Supplement 08/17/24 08/17/24 Unknown History
1,000 mcg tablet
gabapentin 100 mg capsule 100 mg PO HS Pain 08/17/24 08/17/24 08/16/24 History
mirabegron 25 mg tablet,extended 25 mg PO DAILY Urinary Issue 08/17/24 08/17/24 Unknown History
release 24 hr (Myrbetriq)
pitavastatin calcium 2 mg tablet 2 mg PO Q48H High Cholesterol 08/17/24 08/17/24 Unknown History
(Livalo)
spironolactone 50 mg tablet 50 mg PO BID Heart 08/17/24 08/17/24 Unknown History
Disease/Condition
valsartan 80 mg tablet 80 mg PO QPM Blood Pressure 08/17/24 08/17/24 Unknown History
vitamins A,C,J-opxz-ftwbxx 4,296 1 cap PO BID Supplement 08/17/24 08/17/24 Unknown History
mcg-226 mg-90 mg capsule
(PreserVision AREDS)
sacubitril 24 mg-valsartan 26 mg 1 tab PO BID #60 tabs 08/19/24 Unknown Rx
tablet (Entresto)
Review of Systems
-
Unable to Obtain full review of systems at this time due to: Other (Per HPI)
Vitals / Labs / Diagnostic Testing
Vital Signs
Temp Pulse Resp BP Pulse Ox
98 F 106 24 107/47 100
08/20/24 07:21 08/20/24 11:00 08/20/24 11:00 08/20/24 11:00 08/20/24 10:00
Lab Data
08/20/24 05:27
08/20/24 05:27
Microbiology
08/18/24 13:46 Pleural Fluid Body Fluid Culture - Preliminary
No Growth After 48 Hours
08/18/24 13:46 Pleural Fluid Gram Stain - Preliminary
08/17/24 14:10 Nasal Swab Influenza Types A & B ([place]) - Final
Negative for Influenza A & B, NAAT
Negative results must be combined with clinical observations
and patient history.
Nucleic Acid Amplification test (NAAT)performed on the
[employer] platform.
Diagnostic Testing:
Physical Exam
-
Exam:
Well-nourished and well-developed in no apparent distress
HEENT-atraumatic, normocephalic
Neck-supple, no JVD, no bruit
Heart-regular rate and rhythm-no murmurs, rubs or gallops
Chest with diminished breath sounds right base and crackles at the left base with no wheezes
Back without tenderness
Abdomen-soft, nontender, nondistended, no hepatosplenomegaly
Extremities-no cyanosis, clubbing, trace lower extremity edema
Integument-intact, no rashes, lesions or ecchymosis
Neurologically lethargic, moving extremities, grossly nonfocal
Assessment
-
84-year-old never smoking female with a history of uterine cancer/hysterectomy, breast cancer status postlumpectomy and metastatic colon cancer on Keytruda last received 1 week [employer] presented with confusion and increasing shortness of breath found to
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
CHF-preserved EF-EF 55%
Hypercapnic respiratory failure-VBG 08/20/2024--67/168/7.29
Recurrent pleural effusion
Sepsis
UTI
Leukocytosis
Tuodwn-qnisiteuyp-hrlcssyrce 8.0
JON
Hyperglycemia
Conditions present prior to admission:
Hypertension
Hyperlipidemia
Recurrent UTIs.
CHF preserved EF
Moderate mitral stenosis
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
Breast cancer status postlumpectomy.
Metastatic colon cancer-distal sigmoid on Keytruda (last dose 08/13/2024)-metastatic disease to the lungs, right adrenal gland and spleen-managed by [facility]-Dr. Coleman 10
Plan
Respiratory decompensation likely multifactorial including congestive heart failure preserved EF, mitral stenosis, pleural effusion enlarging and possibly immunotherapy
Patient upgraded to ICU level of care
Supplemental oxygen as needed
Noninvasive ventilation/BiPAP-orders written
Follow VBG
Aspiration precautions
Speech therapy evaluation if needed
Nebulizers if needed-currently not bronchospastic-Xopenex as needed
CT chest pending
Consider repeat thoracentesis
Cultures reviewed
Empiric antibiotics
Cardiology following-correspondence reviewed
Echocardiogram summarized below-noted to moderate mitral stenosis
Diuresis as tolerated
Lasix 40 mg IV twice daily in addition to spironolactone 50 mg twice daily
Monitor renal function, electrolytes, intake/output, lower extremity edema and weight
Replace electrolytes as needed
Follow hemoglobin
Transfuse as needed
Monitor blood sugar
Insulin supplementation as needed
DVT prophylaxis-on subcu heparin
Nutrition
Early mobilization
Reviewed with Dr. Juan
Reviewed with son at the bedside
Goals of care discussion
Critical care statement: A total of 65 minutes of critical care time was provided for this patient today. This includes management of unstable vital signs, evaluation of the patient at bedside, reviewing the patient's pertinent medical records
including radiographs, noninvasive ventilation management, respiratory failure management, microbiology, laboratory evaluations, and discussion with primary team, consultants, pharmacy, nutrition, physical therapy, case management, charge nurse,
critical care nursing, and respiratory therapy.
Diagnostic data:
Chest x-ray 08/17/2024-moderate bilateral pleural effusions
Chest x-ray 08/19/2024-low lung volumes, moderate bilateral pleural effusions
Thoracentesis 08/18/2024-right sided, -600 mL clear yellow pleural fluid
Echocardiogram 08/18/2024-EF 45-50%, global hypokinesis worse in the inferior apex, moderate mitral stenosis
Data Reviewed
-
EKG: Report reviewed by me
Radiology: Image personally visualized and interpreted and Report reviewed by me
Medical Tests (Nuc Med, Echo etc): Report reviewed by me
Labs: Labs reviewed by me
Old Records: Reviewed
Critical Care Time (in minutes): 65
--- NOTE | 2024-08-20 12:22 | PN.CDI ---
CDI
- -
CDI:
Physician Documentation Request
Admit Date: 08/17/24 15:58
Dear Doctor Braxton,
Please review the following and provide your response in the progress notes.
The purpose of this query is not to question medical judgement, but to ensure the accuracy of the conditions reported for your patient.
Diagnosis: UTI
The diagnosis is documented in the record on 08/20 in pulmonary/critical care consult.
There is either a lack of clinical support for this condition in the current medical record, or there is a lack of recognized standard criteria to support the condition.
No cultures
UA results:
Laboratory Tests
08/17/24
16:16
Urine Color Yellow
Urine Clarity Clear
Ur Occult Blood Reflex Negative
Urine Nitrite (Reflex) Negative
Leukocyte Esterase Rfl Negative
The request is for one of the following:
- Additional documentation to support the condition. Indicate if this is in lieu of what may be considered standard criteria, and/or support why the standard criteria may not be present for this patient.
- UTI remains a known or suspected condition for this patient and is further supported by (include additional documentation in the medical record)
- Diagnosis UTI has been ruled out
- Other (please specify)
Use of terms such as suspected, likely, concern for, or probable (associated with a specific diagnosis that is being evaluated, monitored, or treated as if it exists) are acceptable and can be coded in the inpatient setting, when documented at the
time of discharge.
Thank you,
Lulú Anguiano RN, BSN
CDI Specialist
tiger text
Please use your independent medical judgment in providing your response.
[2024-08-20 15:12] LABS: APTT 27.2 Sec (23.4-35.0)
--- NOTE | 2024-08-20 15:58 | W.PN.HOSP.TC ---
Today's Communication/Plan
-
Assessment / Plan
Assessment / Plan
Uncomfortable, breathing nasal cannula
Scleral Anicteric
MMM
JVD positive
Crackles throughout all lung [place]
RRR, S1/S2
Soft, NT, ND, BS+
1+ pitting edema
Warm, Dry
Lethargic
Calm
Acute hypoxemic respiratory failure, document SpO2 85%, second Miguel to acute heart failure exacerbation last known EF 50 to 55% per cardiology documentation and was previously on MRAs therefore likely has a history of chronic HFpEF. Therefore this
is acute on chronic HFpEF exacerbation
-IV Lasix
-Monitor urinary output
-Daily weights
-Follow renal function
-Keep K greater than 4, magnesium greater than 2
-Continue MRA
-SGLT2 inhibitor contraindicated due to history of UTIs
-2D echocardiogram completed
-Cardiology consult
-Wean oxygen as tolerated
-Obtain CT PE study if positive for PE start anticoagulation
Metabolic encephalopathy secondary to acute hypercapnic respiratory failure
-Start BiPAP 07/11
Nonischemic myocardial injury in the setting of acute on chronic heart failure
-Downtrending
-Check 2d echo
-EKG
Metastatic colon cancer with mets to kidneys lungs
On Keytruda, if believe this heart failure exacerbation is related to Keytruda will need to have oncology come by to evaluate
Changed to ICU level of care
Anticipated Discharge: > 48 hours
Subjective/Interval History
-
Date of Service: August 20, 2024
Seen and examined. Reported that she was lethargic. Blood gas obtained demonstrating hypercapnia. Started on BiPAP. CT PE ordered after discussing with both Kael and Elliot. Stool was on the phone Elliot was at bedside. Discussed renal function and
how contrast can affect renal function. Potential of requiring hemodialysis. They understood and they had excepted the risk that mom may require hemodialysis however wants to proceed with CT PE study to assess what exactly is going on in the chest
that is causing her to be so hypoxemic.
Objective Data
-
Labs:
Laboratory Results
08/20/24 08/20/24
05:27 14:54
WBC 13.7 H
Hgb 8.0 L
Hct 26.8 L
Plt Count 280
APTT 27.2
Sodium 139
Potassium 3.7
Chloride 101
Carbon Dioxide 31 H
BUN 42 H
Creatinine 1.1 H
Glucose 116 H
Calcium 8.5
Vital Signs:
Vital Signs
Temp Pulse Resp BP Pulse Ox
98.3 F 93 14 107/52 99
08/20/24 15:14 08/20/24 15:05 08/20/24 15:05 08/20/24 15:05 08/20/24 15:00
I&O
08/19/24 08/20/24 08/21/24
06:59 06:59 06:59
Intake Total 750 / 750 770 / 770
Output Total 300 / 300
Balance 450 / 450 770 / 770
[2024-08-20] MEDS: HEPARIN 25000 UNITS/250 ML IV (16:12)
--- NOTE | 2024-08-20 17:06 | W.PN.UPDATE ---
Update Note
Progress Note Update
Reevaluated patient at the bedside
CT chest reviewed
D-dimer positive
Lower extremity ultrasound pending
Updated multiple family members including the other son as well as other family members including a niece who is a admissions evaluator over the phone and explained her current clinical situation, potential etiologies, CT chest findings, echocardiogram
findings, congestive heart failure, potential role of Keytruda-though less likely and potential prognosis, answered all questions-invited family members to participate in multidisciplinary rounds in the morning-1 son will attend
[2024-08-20] MEDS: DIOVAN PO (17:13)
--- NOTE | 2024-08-20 19:34 | PTCARENOTE ---
0700- Rec'd care of patient. Patient drowsy. Arousable to verbal stimuli. Oriented to self/place. Speech therapist notified of drowsiness; at bedside to evaluate patient. Strict NPO. ST on tele monitor. +1 anasarca. Pulse ox 98-100% on 6L nc.
Scattered crackles posteriorly. Hypo BS. Incontinent of mucoid stool and urine. Shila care as needed. Right SQ port capped. See worklist for full assessment and care.
1000- Patient more lethargic. Hospitalist notified. VBG sent. BiPAP initiated. Settings 07/11 4L. Rfid Developer consulted. Upgrade to ICU level.
1130- Rfid Developer and Hospitalist at bedside to discuss plan of care with patient's son. PE study ordered. Purewick placed for urinary incontinence. No other changes in assessment.
1430- PTT, Ddimer sent. Heparin gtt and US b/l LE ordered.
1600- Heparin gtt initiated. Minor changes in assessment. Patient more alert. Asking what day it is. Confused/restless, pulling on wires. Reoriented. Patient's other son and sister at bedside. Rfid Developer at bedside to update on CT results. No other
changes.
[2024-08-20] MEDS: NEURONTIN PO (19:43)
[2024-08-20] MEDS: MORPHINE SULFATE 1 MG IV (21:43)
--- NOTE | 2024-08-20 21:48 | PTCARENOTE ---
Pt lethargic and falling asleep between cares. Forgetful and disoriented to time and situation. Moves all extremities. PERRLA. Endorses sensation x4. Pt NSR to ST on monitor. (+) 2 anasarca nonpitting noted. Weak but palpable pulses x4. Pt on BiPAP.
Pt keeps attempting to remove mask and asking when it can be removed. Pt has been noted to dip in O2 level to the mid 80's. Noted that O2 keeps dislodging when this occurs and is hastily put back into place. Tachypneic. When O2 applied at 4L pt sats
are mid to upper 90's. Pulse ox moved to different areas as pt is cold to touch and is wearing gel nail south [place]rican. Lungs with slight crackles at the bases BL and diminished throughout. Morphine given for pt c/o pain to neck. No s/s of imminent distress
assessed. Will continue to monitor.
[2024-08-20 23:07] LABS: APTT 95.4 Sec (23.4-35.0)
[2024-08-21] VITALS (22 sets, daily range): BP systolic 103–134; BP diastolic 42–85; PULSE 2–101; BMI 33.3
[2024-08-21] MEDS: MORPHINE SULFATE 2 MG IV ×2 (00:31→22:32)
--- NOTE | 2024-08-21 01:03 | PTCARENOTE ---
No change in pt status noted. Pt continues to c/o R neck pain. Pt repositioned approximately q 45min. Pt provided warm therapy to affected area. Pt declined stating it hurt more due to change in angle of neck. Pt provided doses of morphine as
ordered with little to no effect. No s/s of distress assessed. Will continue to monitor.
[2024-08-21 04:43] LABS: Hemoglobin 7.7 g/dL (12.0-16.0); Mean Corp Hgb Conc. 29.6 g/dL (33.0-37.0); Mean Corpuscular Hgb 28.9 pg (27.0-31.0); Mean Corpuscular Volume 97.7 fL (81.0-99.0); Mean Platelet Volume 9.6 fL (7.4-10.4); Platelet Count 240 10^3/uL (130-400); Red Blood Cell Count 2.66 10^6/uL (4.20-5.40); White Blood Cell Count 11.3 10^3/uL (4.8-10.8)
[2024-08-21 04:54] LABS: APTT 126.5 Sec (23.4-35.0)
[2024-08-21 05:42] LABS: Blood Urea Nitrogen 42 mg/dl (7-17); Calcium 8.4 mg/dl (8.4-10.2); Carbon Dioxide 34 mmol/L (22-30); Chloride 101 mmol/L (98-107); Estimated Creatinine Clearance 45 ml/min; Glucose 92 mg/dl (70-99); Potassium 3.1 mmol/L (3.5-5.1); Sodium 141 mmol/L (135-145); eGFR > 60.00
[2024-08-21] MEDS: KCL 270 MEQ IV (06:37)
[2024-08-21] MEDS: ALDACTONE PO (07:28)
[2024-08-21] MEDS: MYRBETRIQ EXTENDED RELEASE PO (07:28)
[2024-08-21] MEDS: CELEXA PO (07:28)
[2024-08-21] MEDS: OCUVITE SOFTGEL PO (07:28)
[2024-08-21] MEDS: VITAMIN B-12 PO (07:29)
--- NOTE | 2024-08-21 07:47 | W.PN.INTV ---
Today's Communication / Plan
Recommendations
Liberate from BiPAP
Suspect mild chronic hypercapnic respiratory failure
Low threshold for antibiotic initiation with left lower lobe atelectasis/possible pneumonia
Consideration towards thoracentesis-probably left first and then right if pleural effusions increase in size
Diuresis as tolerated
Heparin drip for PE
Assessment
-
84-year-old never smoking female with a history of uterine cancer/hysterectomy, breast cancer status postlumpectomy and colon cancer (no obvious metastatic disease on last PET scan) on Keytruda last received 1 week GUIDANCE SERVICES COORDINATOR presented with confusion and
increasing shortness of breath found to be progressively lethargic and msw consulted for hypercapnic/hypoxemic respiratory failure/critical care management 08/20/2024.
CHF-preserved EF-EF 55%
Hypercapnic respiratory failure-VBG 08/20/2024--67/168/7.29
Recurrent pleural effusion
Sepsis
UTI
Leukocytosis
Cbrxzv-vszjzaxdqc-koidoewmen 8.0
JON
Hyperglycemia
Conditions present prior to admission:
Hypertension
Hyperlipidemia
Recurrent UTIs.
CHF preserved EF
Moderate mitral stenosis
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
Breast cancer status postlumpectomy.
Colon cancer-distal sigmoid diagnosed years ago, resection offered, however, told likely would have permanent colostomy and she elected to try immunotherapy Keytruda instead-recently restarted on Keytruda (last dose 08/13/2024)-reports of metastatic
disease to the lungs, right adrenal gland, spleen, however, last PET scan without obvious mets -managed by [facility]-Dr. Solares
Plan
Respiratory decompensation likely multifactorial including congestive heart failure preserved EF, atelectasis, mitral stenosis, pulmonary embolism, pleural effusion enlarging and possibly immunotherapy
Remains critically ill on noninvasive ventilation
Supplemental oxygen as needed
Noninvasive ventilation/BiPAP continues-attempt to liberate
VBG 08/21/2019 5-60 3/140/7.37-suspect chronic mild hypercapnia
Aspiration precautions
Speech therapy evaluation if needed
Nebulizers if needed-currently not bronchospastic-Xopenex as needed
CT chest 08/20/2024-limited study with beam hardening artifact, suspicion for small volume right upper lobe pulmonary embolism and small bilateral pleural effusions with left lower lobe consolidation with air bronchograms
D-dimer elevated consistent with probable clot/PE
Lower extremity ultrasound 08/21/2024-no evidence for DVT
Continue heparin drip eventually convert to oral anticoagulant and treat for minimum of 3-6 months
Pleural effusions-small to moderate left greater than right-consider thoracentesis therapeutic if increases
Cultures reviewed
Consider empiric antibiotics-currently afebrile-low threshold to cover left lower lobe atelectasis versus pneumonia
Cardiology following-correspondence reviewed
Echocardiogram summarized below-noted to moderate mitral stenosis
Diuresis continues as tolerated
Lasix 40 mg IV twice daily in addition to spironolactone 50 mg twice daily
Monitor renal function, electrolytes, intake/output, lower extremity edema and weight
Replace electrolytes as needed
Continue to follow hemoglobin-slowly declining-no obvious source for loss, no clinical bleeding
Transfuse as needed
Monitor blood sugar
Insulin supplementation as needed
DVT prophylaxis-on subcu heparin
Nutrition if able
Early mobilization/PT/OT
Dr. Limon reviewed with 2 sons/and/michael-entry manager on 08/20/2024 and reviewed with 2 kareen on 08/21/2024
Goals of care discussion
Critical care statement: A total of 45 minutes of critical care time was provided for this patient today. This includes management of unstable vital signs, evaluation of the patient at bedside, reviewing the patient's pertinent medical records
including radiographs, noninvasive ventilation management, respiratory failure management, microbiology, laboratory evaluations, and discussion with primary team, consultants, pharmacy, nutrition, physical therapy, case management, charge nurse,
critical care nursing, and respiratory therapy.
Diagnostic data:
Chest x-ray 08/17/2024-moderate bilateral pleural effusions
Chest x-ray 08/19/2024-low lung volumes, moderate bilateral pleural effusions
Thoracentesis 08/18/2024-right sided, -600 mL clear yellow pleural fluid
Echocardiogram 08/18/2024-EF 45-50%, global hypokinesis worse in the inferior apex, moderate mitral stenosis
Subjective Dataa
Subjective Data
Date of Service:
Date of Service: August 21, 2024
Chief Complaint: Manager Non Profit Follow Up and Pulmonary Follow Up
Subjective:
More alert, no complaints of shortness of breath, pain controlled, no abdominal pain
Review of Systems
General: Other (Per HPI)
Objective Data
Data Reviewed
Vital Signs / I&O / Oxygen:
Vital Signs
Temp Pulse Resp BP Pulse Ox
97.6 F 96 21 126/52 99
08/21/24 05:19 08/21/24 06:00 08/21/24 06:00 08/21/24 05:17 08/21/24 06:00
Intake and Output
08/20/24 08/21/24 08/22/24
06:59 06:59 06:59
Intake Total 770 / 770
Output Total 1100 / 1100
Balance 770 / 770 -1100 / -1100
SaO2 99
Nasal Cannula flow liters per 4
minute
Physical Exam
General: Respiratory Distress (n) and Comfortable
HEENT: Normocephalic, Anicteric and Moist Mucous Membranes
Cardiovascular: Regular Rhythm and Murmur
Respiratory: Clear (Diminished breath sounds at both bases), Wheeze (n), Crackles (Basilar), Rhonchi (n), Non-Labored Respirations, Accessory Resp Muscle Use (n) and Stridor (n)
GI: Soft, Non Distended and Non Tender
Neurology: Awake, Alert and No Motor Deficits
Skin: Warm, Good Color, Cyanosis (n), Jaundice and Rash (n)
Labs/Micro/Reports
Lab Data
08/21/24 04:31
Laboratory Results
08/20/24 08/20/24 08/21/24
14:54 22:44 04:31
APTT 27.2 95.4 H 126.5 H
Microbiology
08/18/24 13:46 Pleural Fluid Body Fluid Culture - Preliminary
No Growth After 48 Hours
08/18/24 13:46 Pleural Fluid Gram Stain - Preliminary
[2024-08-21] MEDS: LASIX 40 MG IV ×2 (08:28→16:14)
[2024-08-21] MEDS: LIDOCAINE 4% PATCH 1 PATCH TOPICAL (08:29)
[2024-08-21] MEDS: HEPARIN 25000 UNITS/250 ML IV (09:06)
--- NOTE | 2024-08-21 09:57 | W.PN.CD ---
Today's Communication / Plan
-
ongoing diuresis
bipap wean as able
Impression / Plan
-
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
Hypercapneic/hypoxic Respiratory failure:
-on BiPAP
-mixed etiology
-CTPE reviewed: pe's noted, bibasilar consilidation vs atelectasis and pleural effusions
-d/w Dr Limon, unclear if lower lobe is atelectasis vs consiladation, will reassess with diuresis.
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
-repeat echo 08/18/24 : Normal left ventricular size with mildly reduced systolic function. LVEF 45-50%. Global hypokinesis, worse in the inferior apex.
-etiology suspicious Keytruda?
-She presented with bilateral pleural effusions, hypoxia, orthopnea, and had a proBNP of 13,200
-Diuresis with furosemide 40 mg IV twice daily--will continue with intensive monitoring
-No SGLT2i as she has had frequent UTIs
-resume valsartan, spironolactone when once again taking po, when bp stablizes can consider transition to Entresto, will ask CM to lai
-Some of her lower extremity edema is chronic but it is improving
-Trend daily weight, I/O, and BMP with diuresis
-Heart failure education
PE: on heparin gtt
-pulmonary following
-no right heart strain on echo
Pleural effusions, bilateral -
-Rt s/p Thora -600cc clear fluid (08/18/23)
-continue diuresis
Abnormal troponin, nonischemic myocardial injury in the setting of acute on chronic heart failure
-Peak troponin 0.138
-Chest pain free
HTN, stable, follow with diuresis
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
-On palliative systemic therapy with Keytruda (Dr. Solares), last dose 08/13/2024
-will need to consider ongoing therapy candidacy with Oncology at op given new CMY
-She deferred surgery as she declined a colostomy
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
Prior breast cancer status postlumpectomy
Anemia of chronic disease
Prognosis is gaurded given respiratory failure on bipap and multiple acute on chronic comorbidities
CCT: 31 minutes
SUBJECTIVE:
Feels better today. Satting in the mid 80s on 6 L nasal cannula. She received 40 mg IV Lasix twice daily yesterday. Creatinine 0.8-1.1 today. Weight is 83.1 kg from 81.6 kg yesterday. No events on telemetry.
DATA:
CTPE: 08/20/24:
Limited study, especially as a result of beam hardening artifact.
Findings at least suspicious for small volume filling defects within right upper lobe pulmonary arterial branches/pulmonary embolism.
Cardiomegaly.
Small bilateral pleural effusions, left greater than right and left lower lobe consolidation with air bronchograms.
TTE 08/18/24 CONCLUSIONS
Normal left ventricular size with mildly reduced systolic function. LVEF 45-
50%.
Global hypokinesis, worse in the inferior apex.
Normal right ventricular size and function.
Moderate mitral stenosis. Peak/mean gradients across the mitral valve are 14/6
mmHg.
Mild tricuspid regurgitation with mildly elevated pulmonary pressures (41
mmHg).
Pleural effusion present.
No prior study available for comparison.
TTE, 05/26/2024 ([facility]):
EF 50-55%.
Mild cLVH. Mildly thickened aortic valve leaflets.
Mild mitral valve stenosis, mitral valve area 1.6 cm�, peak gradient 12 with mean of 7.
Physical Exam
Vital Signs/Labs
Vital Signs
Temp Pulse Resp BP Pulse Ox
97.3 F 96 16 113/46 99
08/21/24 08:48 08/21/24 09:00 08/21/24 09:00 08/21/24 09:00 08/21/24 09:00
08/20/24 08/21/24 08/22/24
06:59 06:59 06:59
Actual Weight 83.1 kg 79.8 kg
APTT 126.5 Sec (23.4-35.0) H 08/21/24 04:31
08/17/24
14:16
Ycw-I-Glausfwuolj Pept 48024
Physical Exam
Constitutional: No acute distress and Other (lethargic but opens eyes to name)
Cardiovascular: Rhythm & rate is regular, Systolic murmur absent, Diastolic murmur absent and Pedal edema present (trace b;l)
Respiratory: Respiratory effort normal and Other (slightly decreased at the bases)
Data Reviewed
-
Date of Service: August 21, 2024
Medical Decision Making: Review of Case with other Provider (D/w dr Limon, Multifactorial etiology to respiratory failure, updated sons and ICU nurse at the bedside. )
Critical Care Time (in minutes): 31
--- NOTE | 2024-08-21 10:00 | PTCARENOTE ---
Rec'd care of patient at 0700. Patient drowsy. Nodding head appropriately. Anxious/restless at times, pulling on bipap mask and wires. NSR/ST on tele. Rate in the 90-100's. +1 anasarca. Palpable pulses. Pulse ox 98% on BiPAP. /6 4L. Repeat VBG
sent. Crackles in b/l base. GUERRERO. Incontinent of b&b. Shila care provided. Purewick in place. Right SQ port capped. Peripheral site placed- Heparin gtt and KCl infusing. Repeat BMP and PTT due at 1130. VSS. Sons at bedside.
[2024-08-21 10:12] LABS: Venous Blood Gas B.E. 9.7 mmol/L (-4 to +4); Venous Blood Gas HCO3 36.4 mmol/L (22-27); Venous Blood Gas O2 Sat % 99.5 %; Venous Blood Gas pCO2 63 mmHg (35-48); Venous Blood Gas pH 7.37 (7.32-7.43); Venous Blood Gas pO2 140 mmHg (30-50)
--- NOTE | 2024-08-21 12:11 | PTCARENOTE ---
Assessment unchanged. Vitals stable. Per Project Executive, can wean off BiPAP as tolerated. RT notified.
[2024-08-21 12:16] LABS: APTT 77.1 Sec (23.4-35.0)
--- NOTE | 2024-08-21 12:41 | CM ---
CM following re: discharge planning.
Reviewed pt's chart, met with pt and pt's son Tucker at bedside. Pt feels tired, on Bi-pap, continue supportive care.
PT and OT will evaluate the pt when clinically appropriate to determine a level of care at discharge.
D/C plan: uncertain at this time and will depend on pt's progress.
CM will follow with discharge plan updates as hospitalization progresses
[2024-08-21 13:01] LABS: Blood Urea Nitrogen 41 mg/dl (7-17); Calcium 8.6 mg/dl (8.4-10.2); Carbon Dioxide 32 mmol/L (22-30); Chloride 101 mmol/L (98-107); Estimated Creatinine Clearance 45 ml/min; Glucose 84 mg/dl (70-99); Potassium 3.8 mmol/L (3.5-5.1); Sodium 140 mmol/L (135-145); eGFR > 60.00
--- NOTE | 2024-08-21 13:20 | PTCARENOTE ---
Patient off BiPAP by RT. Pulse ox 100% on 4L nc.
--- NOTE | 2024-08-21 14:24 | PTCARENOTE ---
Speech therapist at bedside to re-evaluate patient. Patient tolerating sips of clears and bites of applesauce. Aspiration precautions maintained. Plan for VSE.
[2024-08-21 14:26] LABS: Magnesium 1.9 mg/dl (1.6-2.3); Phosphorus 3.1 mg/dl (2.5-4.5)
--- NOTE | 2024-08-21 14:41 | PTOTSP ---
Dysphagia Therapy
Impression: Patient with functional oral stage and unspecified pharyngeal dysphagia. Videofluoroscopic swallow study warranted to objectively assess swallow function and rule out aspiration prior to diet initiation given prior choking episode with
solids 08/19.
Recommend:
1. NPO
2. Aspiration Risk Hydration Protocol - sparing sips of thin liquid water, ONLY after oral care, ONLY with nursing supervision/assistance
3. Medications non-oral; essential non-oral medications crushed in puree
4. Videofluoroscopic swallow study
--- NOTE | 2024-08-21 15:36 | W.PN.HOSP.TC ---
Today's Communication/Plan
-
Assessment / Plan
Assessment / Plan
Uncomfortable, breathing nasal cannula
Scleral Anicteric
MMM
JVD positive
Crackles throughout all lung [place]
RRR, S1/S2
Soft, NT, ND, BS+
1+ pitting edema
Warm, Dry
Lethargic
Calm
Acute hypoxemic respiratory failure, document SpO2 85%, second Miguel to acute heart failure exacerbation last known EF 50 to 55% per cardiology documentation and was previously on MRAs therefore likely has a history of chronic HFpEF. Therefore this
is acute on chronic HFpEF exacerbation
-IV Lasix
-Monitor urinary output
-Daily weights
-Follow renal function
-Keep K greater than 4, magnesium greater than 2
-Continue MRA
-SGLT2 inhibitor contraindicated due to history of UTIs
-2D echocardiogram completed
-Cardiology consult
-Wean oxygen as tolerated
Acute PE as noted development of small filling defect on CT PE
-Initiated heparin drip follow protocol
?Pneumonia as there is evidence of air bronchograms on CT
-Started Unasyn
Metabolic encephalopathy secondary to acute hypercapnic respiratory failure
-Start BiPAP 12/6
Nonischemic myocardial injury in the setting of acute on chronic heart failure
-Downtrending
-EKG
Metastatic colon cancer
On Keytruda
Per H&P note metastatic colon cancer to the lungs and kidneys however I reviewed imaging with sarah Ceballos at bedside on epic chart. Without evidence of metastatic disease to the kidneys or lungs. However there was a renal lesion lesion that would
was not confirmed as malignancy/neoplasm or a hemorrhagic cyst that was measuring 1.8 cm.
Changed to ICU level of care
I reviewed living well with sarah Ceballos at bedside. Full code as of now. However if requires prolonged intubation or prolonged CPR in the unfortunate event of cardiac arrest then would terminally extubate or stop CPR and let her pass with dignity.
Anticipated Discharge: 24 - 48 hours
Subjective/Interval History
-
Date of Service: August 21, 2024
Seen and examined. Had a lengthy discussion with his son Tucker at bedside. Notified him of findings of CT with small filling defect potentially pulmonary embolism started on IV heparin.
Objective Data
-
Labs:
Laboratory Results
08/21/24 08/21/24 08/21/24
04:31 11:28 16:00
WBC 11.3 H
Hgb 7.7 L Pending
Hct 26.0 L
Plt Count 240
APTT 126.5 H 77.1 H
Sodium 141 140
Potassium 3.1 L 3.8
Chloride 101 101
Carbon Dioxide 34 H 32 H
BUN 42 H 41 H
Creatinine 0.9 0.9
Glucose 92 84
Calcium 8.4 8.6
08/21/24
17:30
WBC
Hgb
Hct
Plt Count
APTT Pending
Sodium
Potassium
Chloride
Carbon Dioxide
BUN
Creatinine
Glucose
Calcium
Vital Signs:
Vital Signs
Temp Pulse Resp BP Pulse Ox
98.1 F 97 27 133/58 100
08/21/24 13:07 08/21/24 15:00 08/21/24 15:00 08/21/24 15:00 08/21/24 15:00
I&O
08/20/24 08/21/24 08/22/24
06:59 06:59 06:59
Intake Total 770 / 770 387.0 / 387.0
Output Total 1100 / 1100 750 / 750
Balance 770 / 770 -1100 / -1019.5 -363.0 / -363.0
--- NOTE | 2024-08-21 16:00 | PTCARENOTE ---
Minor changes in assessment. Patient more alert. Oriented conversation with periods of confusion. Oriented to self and place. Occasionally forgetful to time. Pulse ox 99% on 4L nc. NSR on tele. VSS. Sips of water as appropriate. No s/s aspiration.
[2024-08-21] MEDS: UNASYN IV ×2 (16:14→22:32)
[2024-08-21 17:34] LABS: Hemoglobin 8.6 g/dL (12.0-16.0)
[2024-08-21 17:43] LABS: APTT 108.5 Sec (23.4-35.0)
--- NOTE | 2024-08-21 17:53 | PTCARENOTE ---
PTT therapeutic x2. PTT ordered for am.
[2024-08-21] MEDS: DIOVAN 80 MG PO (18:01)
[2024-08-21] MEDS: LIPITOR 10 MG PO (20:40)
[2024-08-21] MEDS: ALDACTONE 50 MG PO (20:40)
[2024-08-21] MEDS: OCUVITE SOFTGEL 1 CAP PO (20:40)
[2024-08-21] MEDS: NEURONTIN 100 MG PO (20:42)
--- NOTE | 2024-08-21 21:32 | PTCARENOTE ---
On assessment pt AAOx3, forgetful at times, generalized weakness but turns self, anxious but appears to be resting comfortably in bed at this time, SR on the monitor, hep gtt infusing per order, +pulses, 4L NC, on BIPAP most of the day, due for a
video swallow tomorrow, speech cleared pt to have meds crushed in applesauce, purwick in place, unable to locate Lido patch, R subQ port, bed alarm on and call estrada in reach.
[2024-08-22] VITALS (27 sets, daily range): BP systolic 102–142; BP diastolic 44–78; PULSE 2–104; O2SAT 97–100; BMI 32.3
--- NOTE | 2024-08-22 | PTCARENOTE ---
pt restless in bed, pt was cleaned up and repositioned, but pt still in pain, PRN meds given see alarm on and call estrada in reach
[2024-08-22] MEDS: HEPARIN 25000 UNITS/250 ML IV ×2 (04:10→21:02)
[2024-08-22] MEDS: UNASYN IV ×4 (04:12→22:25)
[2024-08-22 04:33] LABS: Hematocrit 27.1 % (37.0-47.0); Hemoglobin 8.2 g/dL (12.0-16.0); Mean Corp Hgb Conc. 30.3 g/dL (33.0-37.0); Mean Corpuscular Hgb 29.4 pg (27.0-31.0); Mean Corpuscular Volume 97.1 fL (81.0-99.0); Mean Platelet Volume 9.7 fL (7.4-10.4); Platelet Count 248 10^3/uL (130-400); Red Blood Cell Count 2.79 10^6/uL (4.20-5.40); Red Cell Dist. Width 16.7 % (11.5-14.5); White Blood Cell Count 11.5 10^3/uL (4.8-10.8)
[2024-08-22 05:05] LABS: APTT 59.4 Sec (23.4-35.0)
--- NOTE | 2024-08-22 06:01 | PTCARENOTE ---
pt c/o back discomfort, pt was repositioned and pt states ' thats better', after that pt appeared to fall asleep, pt saturation was 82-98% on the 4L, REPORT MANAGER and respiratory made aware and pt was placed back on BIPAP. pt remains oriented x3, denies any
SOB at this time, bed alarm on and call estrada in reach
--- NOTE | 2024-08-22 06:20 | PTCARENOTE ---
ptt resulted STARTER MECHANIC made aware, STARTER MECHANIC wants no bolus but increase hep gtt per order.
--- NOTE | 2024-08-22 07:42 | W.PN.INTV ---
Today's Communication / Plan
Recommendations
Diuresis
Wean FiO2
Noninvasive ventilation as needed
Antibiotics
Thoracentesis
Video swallow
Assessment
-
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
increasing shortness of breath found to be progressively lethargic and home economics expert consulted for hypercapnic/hypoxemic respiratory failure/critical care management 08/20/2024.
CHF-preserved EF-EF 55%
Hypercapnic-VBG 08/20/2024--67/168/7.29
Recurrent pleural effusion
Sepsis
UTI
Leukocytosis
Jprdcr-olrblypygm-surajrkuzr 8.0
JON
Hyperglycemia
Conditions present prior to admission:
Hypertension
Hyperlipidemia
Recurrent UTIs.
CHF preserved EF
Moderate mitral stenosis
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
Breast cancer status postlumpectomy.
Colon cancer-distal sigmoid diagnosed years ago, resection offered, however, told likely would have permanent colostomy and she elected to try immunotherapy Keytruda instead-recently restarted on Keytruda (last dose 08/13/2024)-reports of metastatic
disease to the lungs, right adrenal gland, spleen, however, last PET scan without obvious mets -managed by [facility]-Dr. Solares
Plan
Respiratory decompensation likely multifactorial including congestive heart failure preserved EF, atelectasis, suspected pneumonia, mitral stenosis, pulmonary embolism, pleural effusion enlarging and possibly immunotherapy
Remains critically ill requiring intermittent noninvasive ventilation
Supplemental oxygen as needed-attempt to wean
Noninvasive ventilation/BiPAP continues-attempt to liberate
VBG 08/21/2019 5-60 3/140/7.37-suspect chronic mild hypercapnia
Aspiration precautions
Speech therapy evaluation
Video swallow 08/22/2024 pending
Nebulizers if needed-currently not bronchospastic-Xopenex as needed
CT chest 08/20/2024-limited study with beam hardening artifact, suspicion for small volume right upper lobe pulmonary embolism and small bilateral pleural effusions with left lower lobe consolidation with air bronchograms
D-dimer elevated consistent with probable clot/PE
Lower extremity ultrasound 08/21/2024-no evidence for DVT
Continue heparin drip eventually convert to oral anticoagulant and treat for minimum of 3-6 months
Persistent small to moderate pleural effusions-recommend thoracentesis-interventional radiology consulted 08/22/2024-pending
Cultures reviewed
With persistent hypoxemia empiric antibiotics initiated in light of CT chest findings/air bronchograms
Cardiology following-correspondence reviewed
Echocardiogram summarized below-noted to moderate mitral stenosis
Diuresis continues as tolerated
Lasix 40 mg IV twice daily in addition to spironolactone 50 mg twice daily
Monitor renal function, electrolytes, intake/output, lower extremity edema and weight
Replace electrolytes as needed
Continue to follow hemoglobin-slowly declining-no obvious source for loss, no clinical bleeding
Transfuse as needed
Monitor blood sugar
Insulin supplementation as needed
Family inquiring whether oncology needs to be involved-I told them not at this point
Oncology is at [place]
History colon cancer years ago-declined resection as high risk for colostomy and wanted immunotherapy only which she tolerated and now with resurgence of local disease once again wishing immunotherapy-of note PET scan reviewed and no evidence for
distal metastatic disease
DVT prophylaxis-on subcu heparin
Nutrition if able
Early mobilization/PT/OT
Dr. Limon reviewed with 2 sons/and/niece-sewing machine mechanic on 08/20/2024 and reviewed with 2 sons on 08/21/2024 and 1 son/rlbpyjkr-xr-hmc 08/22/2024-told respiratory decompensation multifactorial including CHF, atelectasis, pneumonia, pleural effusion and
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
Goals of care discussion
Critical care statement: A total of 45 minutes of critical care time was provided for this patient today. This includes management of unstable vital signs, evaluation of the patient at bedside, reviewing the patient's pertinent medical records
including radiographs, noninvasive ventilation management, respiratory failure management, microbiology, laboratory evaluations, and discussion with primary team, consultants, pharmacy, nutrition, physical therapy, case management, charge nurse,
critical care nursing, and respiratory therapy.
Diagnostic data:
Chest x-ray 08/17/2024-moderate bilateral pleural effusions
Chest x-ray 08/19/2024-low lung volumes, moderate bilateral pleural effusions
Thoracentesis 08/18/2024-right sided, -600 mL clear yellow pleural fluid
Echocardiogram 08/18/2024-EF 45-50%, global hypokinesis worse in the inferior apex, moderate mitral stenosis
Subjective Dataa
Subjective Data
Date of Service:
Date of Service: August 22, 2024
Chief Complaint: Corporate Strategy Intern Follow Up and Pulmonary Follow Up
Subjective:
More alert, required BiPAP, no chest pain or abdominal pain
Review of Systems
General: Other (Per HPI)
Objective Data
Data Reviewed
Vital Signs / I&O / Oxygen:
Vital Signs
Temp Pulse Resp BP Pulse Ox
97.6 F 84 17 120/44 98
08/22/24 07:34 08/22/24 06:00 08/22/24 06:00 08/22/24 06:00 08/22/24 06:00
Intake and Output
08/21/24 08/22/24 08/23/24
06:59 06:59 06:59
Intake Total 585.0 / 585.0
Output Total 1100 / 1100 2350 / 2350
Balance -1100 / -1019.5 -1765.0 / -1765.0
SaO2 98
Nasal Cannula flow liters per 4
minute
Physical Exam
General: Respiratory Distress (n) and Comfortable
HEENT: Normocephalic, Anicteric and Moist Mucous Membranes
Cardiovascular: Regular Rhythm and Murmur
Respiratory: Clear (Diminished breath sounds at both bases), Wheeze (n), Crackles (Basilar), Rhonchi (n), Non-Labored Respirations, Accessory Resp Muscle Use (n) and Stridor (n)
GI: Soft, Non Distended and Non Tender
Neurology: Awake, Alert and No Motor Deficits
Skin: Warm, Good Color, Cyanosis (n), Jaundice and Rash (n)
Labs/Micro/Reports
Lab Data
08/22/24 04:21
08/21/24 11:28
Laboratory Results
08/21/24 08/21/24 08/22/24
11 17:25 04:21
APTT 77.1 H 108.5 H 59.4 H
Microbiology
08/18/24 13:46 Pleural Fluid Body Fluid Culture - Final
No Growth After 72 Hours
08/18/24 13:46 Pleural Fluid Gram Stain - Final
--- NOTE | 2024-08-22 08:00 | PTCARENOTE ---
Received pt @ change of shift. Drowsy, awakens to verbal stimuli. RT transitioned pt. off BiPAP to 4LNC, tolerating O2 switch; SPO2 97%. Oriented x2, required reorientation to time; restless/anxious/forgetful @ x's. SR w 1st degree AVB and BBB
on monitor. Auscultated dim breath sounds posteriorly w crackles @ b/l base L>R +BS, abd soft/round/obese. NPO ex meds crushed in applesauce per CATALOG LIBRARY ASSISTANT pending VSE today. Inc b/b. Purewick in place draining cloudy/yellow urine. R SC port w heparin
gtt infusing- see flow sheet. Pt. assisted w repositioning in bed per protocol. Bed alarm active. Son @ bedside, updated on plan of care.
--- NOTE | 2024-08-22 08:03 | W.PN.CD ---
Today's Communication / Plan
-
continue diuresis
consider rt side thoracentesis
Impression / Plan
-
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
Primary station inspector: Dr. 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
Hypercapneic/hypoxic Respiratory failure:
-on and off BiPAP---currently off
-mixed etiology
-CTPE reviewed: pe's noted, bibasilar consilidation vs atelectasis and pleural effusions
-d/w Dr Limon, unclear if lower lobe is atelectasis vs consiladation, will reassess with diuresis.
-abx started to cover pna, speech eval planned today
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
-repeat echo 08/18/24 : Normal left ventricular size with mildly reduced systolic function. LVEF 45-50%. Global hypokinesis, worse in the inferior apex.
-Diuresing nicely, down 9.1kg with stable cr and bp
-etiology suspicious Keytruda?
-She presented with bilateral pleural effusions, hypoxia, orthopnea, and had a proBNP of 13,200
-Diuresis with furosemide 40 mg IV twice daily--will continue with intensive monitoring
-No SGLT2i as she has had frequent UTIs
-resume valsartan, spironolactone when once again taking po, when bp stablizes can consider transition to Entresto, will ask CM to lai
-Some of her lower extremity edema is chronic but it is improving
-Trend daily weight, I/O, and BMP with diuresis
-Heart failure education
PE: on heparin gtt
-pulmonary following
-no right heart strain on echo
Pleural effusions, bilateral -
-Rt s/p Thora -600cc clear fluid (08/18/23)--->appears recurrent on today's CXR despite good diuresis.
-would recommend repeat thoracentesis as now in a better place with her volume and there is likely significant compressive atelectasis.
-continue diuresis
Abnormal troponin, nonischemic myocardial injury in the setting of acute on chronic heart failure
-Peak troponin 0.138
-Chest pain free
HTN, stable, follow with diuresis
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
-On palliative systemic therapy with Keytruda (Dr. Solares), last dose 08/13/2024
-will need to consider ongoing therapy candidacy with Oncology at op given new CMY
-She deferred surgery as she declined a colostomy
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
Prior breast cancer status postlumpectomy
Anemia of chronic disease
Prognosis is guarded given respiratory failure on bipap and multiple acute on chronic comorbidities, son and daughter in law at the bedside and updated
CCT: 31 minutes
SUBJECTIVE:
awake and alert, off bipap, asking for water which is her only complaint.
DATA:
CTPE: 08/20/24:
Limited study, especially as a result of beam hardening artifact.
Findings at least suspicious for small volume filling defects within right upper lobe pulmonary arterial branches/pulmonary embolism.
Cardiomegaly.
Small bilateral pleural effusions, left greater than right and left lower lobe consolidation with air bronchograms.
TTE 08/18/24 CONCLUSIONS
Normal left ventricular size with mildly reduced systolic function. LVEF 45-
50%.
Global hypokinesis, worse in the inferior apex.
Normal right ventricular size and function.
Moderate mitral stenosis. Peak/mean gradients across the mitral valve are 14/6
mmHg.
Mild tricuspid regurgitation with mildly elevated pulmonary pressures (41
mmHg).
Pleural effusion present.
No prior study available for comparison.
TTE, 05/26/2024 ([facility]):
EF 50-55%.
Mild cLVH. Mildly thickened aortic valve leaflets.
Mild mitral valve stenosis, mitral valve area 1.6 cm�, peak gradient 12 with mean of 7.
Physical Exam
Vital Signs/Labs
Vital Signs
Temp Pulse Resp BP Pulse Ox
97.6 F 84 17 120/44 98
08/22/24 07:34 08/22/24 06:00 08/22/24 06:00 08/22/24 06:00 08/22/24 06:00
08/21/24 08/22/24 08/23/24
06:59 06:59 06:59
Actual Weight 79.8 kg 77.4 kg
08/22/24 04:21
08/21/24 11:28
APTT 59.4 Sec (23.4-35.0) H 08/22/24 04:21
Magnesium 1.9 mg/dl (1.6-2.3) 08/21/24 11:28
08/17/24
14:16
Vla-L-Pkzcufbbpsu Pept [id number]
Physical Exam
Constitutional: No acute distress
Cardiovascular: Rhythm & rate is regular, Systolic murmur absent, Diastolic murmur absent and Pedal edema present (trace bl)
Respiratory: Respiratory effort normal, Wheeze Absent, Rhonchi Absent, Crackles Present (left base) and Other (right base decreased)
Neuro/Psych: AO x 3
Data Reviewed
-
Date of Service: August 22, 2024
Medical Decision Making: Review of Case with other Provider (Updated Dr Limon and Dr Juan regarding ongoing diuresis, repeat thora)
EKG: Other (tele sinus)
Medical Tests (PFT, Pathology etc): Discussed with Family (recurrent pleural effussion)
[2024-08-22] MEDS: MYRBETRIQ EXTENDED RELEASE 25 MG PO (08:08)
[2024-08-22] MEDS: VITAMIN B-12 1000 MCG PO (08:08)
[2024-08-22] MEDS: CELEXA 10 MG PO (08:08)
[2024-08-22] MEDS: ALDACTONE 50 MG PO ×2 (08:08→20:29)
[2024-08-22] MEDS: LASIX 40 MG IV ×2 (08:08→16:03)
[2024-08-22] MEDS: OCUVITE SOFTGEL 1 CAP PO ×2 (08:08→20:28)
[2024-08-22] MEDS: LIDOCAINE 4% PATCH 1 PATCH TOPICAL (08:09)
--- NOTE | 2024-08-22 09:00 | PTCARENOTE ---
#22 L FA IV inserted by VAT. Heparin gtt switched to new IV and R SC port utilized for IV abx. Plan for VSE and thoracentesis today; awaiting testing time. Bed alarm active w call estrada in reach. Son remains @ bedside.
--- NOTE | 2024-08-22 09:24 | PN.CDI ---
CDI
- -
CDI:
Physician Documentation Request
Admit Date: 08/17/24 15:58
Dear Doctor Drake,
Patient admitted for management of heart failure
The diagnosis of sepsis was included in the pulmonary/critical care consultation/progress notes and H&P but not in subsequent documentation.
H&P states 'Sepsis (leukocytosis, tachycardia, tachypnea) likely secondary to urinary tract infection.'
Please indicate in your progress notes if you are in agreement that the above diagnosis is valid for this patient:
____ - Sepsis is a valid diagnosis (Please include it in your progress notes)
____ - Sepsis has been ruled out
____ - Other
Use of terms such as suspected, likely, concern for, or probable are acceptable for a diagnosis that is being evaluated, monitored or treated as if it exists and can be coded in the inpatient setting, when documented at the time of discharge.
Thank you,
Lulú Anguiano RN, BSN
CDI Specialist
tiger text
Please use your independent medical judgment in providing your response.
--- NOTE | 2024-08-22 09:32 | PN.CDI ---
CDI
- -
CDI:
Physician Documentation Request
Admit Date: 08/17/24 15:58
Dear Doctor Drake,
Please review the following and provide your response in the progress notes.
Clinical Indicators:
The diagnosis of UTI was documented in H&P but is not consistently noted in subsequent documentation.
No urine cultures
UA results:
Laboratory Tests
08/17/24
16:16
Urine Color Yellow
Urine Clarity Clear
Ur Occult Blood Reflex Negative
Urine Nitrite (Reflex) Negative
Leukocyte Esterase Rfl Negative
Please clarify the following:
____ - UTI was present on admission
____ - UTI was ruled out
____ - Other
Use of terms such as suspected, likely, concern for, or probable (associated with a specific diagnosis that is being evaluated, monitored, or treated as if it exists) are acceptable and can be coded in the inpatient setting, when documented at the
time of discharge.
Thank you,
Lulú Anguiano RN, BSN
CDI Specialist
tiger text
Please use your independent medical judgment in providing your response.
--- NOTE | 2024-08-22 09:37 | PN.CDI ---
CDI
- -
CDI:
Physician Documentation Request
Admit Date: 08/17/24 15:58
Dear Doctor Drake,
Patient admitted for management of CHF.
Has received IV lasix
Recent Creatinine results:
Laboratory Tests
08/18/24 08/19/24 08/20/24
05:50 04:20 05:27
Creatinine 0.8 1.0 1.1 H
08/21/24
04:31
Creatinine 0.9
Could you please provide a diagnosis that supports the above lab abnormalities and additional evaluation/ monitoring:
JON
Abnormal lab value clinically insignificant
Other
Criteria for JON*
1 Increase in serum creatinine by > or = to 0.3 mg/dL (> or = to 26.5 micromol/L) within 48 hours, OR
2 Increase in serum creatinine to > or = to 1.5 times baseline, which is known or presumed to have occurred within 7 days, OR
3 Urine volume < 0.5 nL/kg/hour for six hours
Use of terms such as suspected, likely, concern for, or probable (associated with a specific diagnosis that is being evaluated, monitored, or treated as if it exists) are acceptable and can be coded in the inpatient setting, when documented at the
time of discharge.
Thank you,
Lulú Anguiano RN, BSN
CDI Specialist
tiger text
Please use your independent medical judgment in providing your response.
[2024-08-22 12:44] LABS: APTT 116.5 Sec (23.4-35.0)
--- NOTE | 2024-08-22 13:01 | CM ---
CM following re: discharge planning.
Reviewed pt's chart, met with pt and pt's sons Tucker and Elliot at bedside. Pt continues Bi-pap treatment, continue supportive care, goals of care discussion with the family.
PT and OT will evaluate the pt when clinically appropriate to determine a level of care at discharge.
D/C plan: uncertain at this time and will depend on pt's progress.
CM will follow with discharge plan updates as hospitalization progresses
--- NOTE | 2024-08-22 13:09 | PTOTSP ---
Videofluoroscopic Swallow Study
Summary: Patient presents with mild oral/pharyngeal dysphagia without significant pharyngeal retention or aspiration. Esophageal sweep with mild distal esophageal retention. Given lethargy at time of test, consider modified diet below, only when
awake/alert.
Recommendation:
1. IDDSI Level 5 Minced and Moist, Thin Liquids
2. Medications: crush large pills in puree if medically cleared
3. Strategies: upright to 90 degrees, PO only when awake/alert, 1:1 supervision/assistance, small sips/bites, slow rate, remain upright for 30 minutes after PO
4. Oral care 2-3x daily
5. Dysphagia tx f/u for education and to determine when advance solids appropriate.
--- NOTE | 2024-08-22 13:19 | PTCARENOTE ---
Pt. transported via bed to VSE @ 1100; VSE completed by LABORER SAWMILL. S/P test pt. transported to IR for R thoracentesis. R thoracentesis not completed d/t lack of fluid on US per IR. PT. transported back to unit, no events during transport. Upon return
to unit, complete hygiene provided. PT/OT to bedside. Pt. assisted OOB to chair x2 w RW @ approx 1215, generalized weakness. Remains OOB to chair, tolerating position/activity. Family @ bedside, updated. Heparin gtt remains infusing and
titrated per orders-see flow sheet. Chair alarm active. Call estrada remains w/in reach.
--- NOTE | 2024-08-22 14:05 | W.PN.HOSP.TC ---
Addendum entered and electronically signed by Chinedu Juan MD 08/22/24 14:23:
JON
UTI was ruled out
Sepsis
Original Note:
Today's Communication/Plan
-
Assessment / Plan
Assessment / Plan
Comfortable and on nasal cannula
Scleral Anicteric
MMM
JVD positive
Crackles throughout all lung [place]
RRR, S1/S2
Soft, NT, ND, BS+
1+ pitting edema
Warm, Dry
Lethargic
Calm
Acute hypoxemic respiratory failure, document SpO2 85%, second [place] to acute heart failure exacerbation last known EF 50 to 55% per cardiology documentation and was previously on MRAs therefore likely has a history of chronic HFpEF. Therefore this
is acute on chronic HFpEF exacerbation
-IV Lasix
-Monitor urinary output
-Daily weights
-Follow renal function
-Keep K greater than 4, magnesium greater than 2
-Continue MRA
-SGLT2 inhibitor contraindicated due to history of UTIs
-2D echocardiogram completed
-Cardiology consult
-Wean oxygen as tolerated
Acute PE as noted development of small filling defect on CT PE
-Initiated heparin drip follow protocol
?Pneumonia as there is evidence of air bronchograms on CT
-Started Unasyn
Aspiration concerned therefore was made n.p.o. aspiration precaution initiated
evaluated by speech plan video swallow that was completed with recommendations of L5 minced and moist L0 thin liquids when awake full with supervision. Crush large pills if able
Metabolic encephalopathy secondary to acute hypercapnic respiratory failure
-Start BiPAP 12/6 HSPRN
Nonischemic myocardial injury in the setting of acute on chronic heart failure
-Downtrending
-EKG
Metastatic colon cancer
On Keytruda
Per H&P note metastatic colon cancer to the lungs and kidneys however I reviewed imaging with sarah Ceballos at bedside on epic chart. Without evidence of metastatic disease to the kidneys or lungs. However there was a renal lesion lesion that would
was not confirmed as malignancy/neoplasm or a hemorrhagic cyst that was measuring 1.8 cm.
Changed to ICU level of care
I reviewed living well with son Tucker at bedside. Full code as of now. However if requires prolonged intubation or prolonged CPR in the unfortunate event of cardiac arrest then would terminally extubate or stop CPR and let her pass with dignity.
Anticipated Discharge: > 48 hours
Subjective/Interval History
-
Date of Service: August 22, 2024
Seen and examined. No more awake and able to comprehend a little better than yesterday.
Understands that she is planned for speech and swallow study later today with speech therapy
Objective Data
-
Labs:
Laboratory Results
08/22/24 08/22/24 08/22/24
04:21 12:13 18:45
WBC 11.5 H
Hgb 8.2 L
Hct 27.1 L
Plt Count 248
APTT 59.4 H 116.5 H Pending
Vital Signs:
Vital Signs
Temp Pulse Resp BP Pulse Ox
98.1 F 109 26 129/62 100
08/22/24 11:35 08/22/24 12:00 08/22/24 12:00 08/22/24 11:45 08/22/24 11:45
I&O
08/21/24 08/22/24 08/23/24
06:59 06:59 06:59
Intake Total 585.0 / 601.0 408 / 408
Output Total 1100 / 1100 2350 / 2350 550 / 550
Balance -1100 / -1019.5 -1765.0 / -1749.0 -142 / -142
[2024-08-22] MEDS: DIOVAN 80 MG PO (17:12)
[2024-08-22] MEDS: NEURONTIN 100 MG PO (20:30)
[2024-08-22] MEDS: DESENEX/MITRAZOL/ZEASORB 1 APPLIC TOPICAL (20:31)
[2024-08-23] VITALS (17 sets, daily range): BP systolic 70–115; BP diastolic 30–66; PULSE 2–96; BMI 32.1
[2024-08-23] MEDS: MORPHINE SULFATE 2 MG IV ×3 (01:35→22:07)
[2024-08-23 02:03] LABS: APTT 97.5 Sec (23.4-35.0)
[2024-08-23] MEDS: UNASYN IV ×4 (05:01→20:52)
--- NOTE | 2024-08-23 05:31 | PTCARENOTE ---
Pt transferred from ICU at start of shift. 97% on 4L NC. Shallow respirations with diminished lung sounds; crackles b/l bases. AAOx2; believes it is 2017. Hep gtt running at 1200 units/hr; therapeutic PTT x1. Next PTT to be drawn at 0740. PW
in place. Malodorous urine. PRN morphine given x1 per order for back pain. Meds given crushed in applesauce. Bed alarm active; call estrada within reach.
[2024-08-23] MEDS: LIDOCAINE 4% PATCH 1 PATCH TOPICAL (07:53)
[2024-08-23] MEDS: LASIX 40 MG IV (07:53)
[2024-08-23] MEDS: DESENEX/MITRAZOL/ZEASORB 1 APPLIC TOPICAL ×2 (07:54→20:52)
[2024-08-23 08:15] LABS: APTT 103.8 Sec (23.4-35.0)
[2024-08-23] MEDS: CELEXA 10 MG PO (09:17)
[2024-08-23] MEDS: MYRBETRIQ EXTENDED RELEASE 25 MG PO (09:17)
[2024-08-23] MEDS: VITAMIN B-12 1000 MCG PO (09:17)
[2024-08-23] MEDS: ALDACTONE 50 MG PO (09:17)
[2024-08-23] MEDS: OCUVITE SOFTGEL 1 CAP PO ×2 (09:17→20:52)
--- NOTE | 2024-08-23 09:57 | W.PN.PUL3 ---
Today's Communication / Plan
-
Continue with BiPAP with sleep
Trend VBG to assure pCO2 + pH remained stable
Continue with antibiotics
Diuresis
Up OOB as tolerated
Carcino spirometer
Trend BNP
Pulmonary service will continue to follow along
Assessment
-
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
increasing shortness of breath found to be progressively lethargic and field installation technician consulted for hypercapnic/hypoxemic respiratory failure/critical care management 08/20/2024.
Acute HFmrEF exacerbation CHF (TTE from 08/18/2024 shows LVEF: 45-50% with moderate mitral stenosis and moderately elevated PASP: 41 mmHg)
Acute respiratory failure with hypoxia
Acute on chronic respiratory failure with hypercapnia now on nocturnal BiPAP
Recurrent pleural effusion s/p right-sided thoracentesis on 08/18/2024 removing 600 cc of clear yellow transudative fluid
Suspected submassive PE involving the right upper lobe seen on CTA chest from 08/20/2024
Sepsis without shock due to LLL pneumonia
Leukocytosis
Anemia
JON
Hyperglycemia - resolved
Conditions present prior to admission:
Hypertension
Hyperlipidemia
Recurrent UTIs.
CHF preserved EF
Moderate mitral stenosis
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
Breast cancer status postlumpectomy.
Colon cancer-distal sigmoid diagnosed years ago, resection offered, however, told likely would have permanent colostomy and she elected to try immunotherapy Keytruda instead-recently restarted on Keytruda (last dose 08/13/2024)-reports of metastatic
disease to the lungs, right adrenal gland, spleen, however, last PET scan without obvious mets -managed by [facility]-Dr. Solares
Plan
Respiratory decompensation likely multifactorial including congestive heart failure preserved EF, atelectasis, suspected pneumonia of LLL, mitral stenosis, pulmonary embolism, pleural effusion enlarging and possibly immunotherapy
Supplemental oxygen as needed-attempt to wean while keeping SpO2 >90%
Check ambulatory pulse oximetry prior to discharge
Continue with BiPAP with sleep and trend VBG to assure pH + pCO2 remained stable
Aspiration precautions
Diet as per CANAL DRIVER � s/p VFSS done on 08/22/2024, clear for IDDSI level 5 diet with thin liquids
Nebulizers if needed-currently not bronchospastic-Xopenex as needed
CTA chest 08/20/2024-limited study with beam hardening artifact, suspicion for small volume right upper lobe pulmonary embolism and small bilateral pleural effusions with left lower lobe consolidation with air bronchograms
D-dimer elevated consistent with probable clot/PE
Lower extremity ultrasound 08/21/2024-no evidence for DVT
Continue heparin drip eventually convert to oral anticoagulant and treat for minimum of 3-6 months
Persistent small to moderate pleural effusions-recommend thoracentesis-interventional radiology consulted 08/22/2024-thoracentesis canceled as minimal pleural effusions seen on chest US on 08/22/2024
- [facility]
Continue with antibiotics, currently on Unasyn (started 08/21/2024)
- Recommend to complete at least 7 days assuming that she continues to clinically improve and remains afebrile for 48 hours prior to stopping antibiotics
- Repeat imaging in 4 to 6 weeks to follow pneumonia resolution
Cardiology following-correspondence reviewed
Echocardiogram summarized below-noted to moderate mitral stenosis
Diuresis continues as tolerated
Lasix 40 mg IV twice daily in addition to spironolactone 50 mg twice daily
Monitor renal function, electrolytes, intake/output, lower extremity edema and weight
Replace electrolytes as needed
Continue to follow hemoglobin
Transfuse as needed to keep Hb>7g/dL
Monitor blood sugar with goal >100 and <180
Insulin supplementation as needed
Family inquiring whether oncology needs to be involved- Dr. Limon told them not at this point
Oncology is at [place]
History of colon cancer years ago-declined resection as high risk for colostomy and wanted immunotherapy only which she tolerated and now with resurgence of local disease once again wishing immunotherapy-of note PET scan reviewed and no evidence for
distal metastatic disease
DVT prophylaxis-heparin gtt
Nutrition if able
Early mobilization/PT/OT
Dr. Limon reviewed with 2 sons/and/niece-chief psychology on 08/20/2024 and reviewed with 2 sons on 08/21/2024 and 1 son/stkxaiaj-xz-cnd 08/22/2024-told respiratory decompensation multifactorial including CHF, atelectasis, pneumonia, pleural effusion and
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
Goals of care discussion recommended
Pulmonary service will continue to follow along.
Diagnostic data:
Chest x-ray 08/17/2024-moderate bilateral pleural effusions
Chest x-ray 08/19/2024-low lung volumes, moderate bilateral pleural effusions
Thoracentesis 08/18/2024-right sided, -600 mL clear yellow pleural fluid
Echocardiogram 08/18/2024-EF 45-50%, global hypokinesis worse in the inferior apex, moderate mitral stenosis
Total time spent today was 56 minutes for this encounter. Time includes reviewing laboratory test/imaging results, reviewing pertinent medical records, obtaining and reviewing medical history, performing an appropriate exam, ordering medications,
tests and procedures. Time also includes documentation of this encounter, coordinating patient care and communicating with other healthcare professionals. Total time does not include separately billed tests performed on this date of service.
Subjective Data
-
Date of Service:
Date of Service: August 23, 2024
Chief Complaint: Pulmonary Follow Up
Subjective:
Patient seen and evaluated this morning (late note entry). Patient currently on 4 L/min nasal cannula and saturating 96%. She says she feels well, with no shortness of breath or chest pain currently. Also denies a cough. Denies abdominal pain,
nausea, fevers or chills.
Review of Systems
General: Other (Negative unless mentioned above)
Objective Data
Data Reviewed
Vital Signs / I&O / Oxygen:
Vital Signs
Temp Pulse Resp BP Pulse Ox
97.7 F 87 27 109/46 98
08/23/24 04:49 08/23/24 07:53 08/23/24 06:00 08/23/24 09:17 08/23/24 03:00
Intake and Output
08/22/24 08/23/24 08/24/24
06:59 06:59 06:59
Intake Total 585.0 / 601.0 802 / 802
Output Total 2350 / 2350 1350 / 1350
Balance -1765.0 / -1749.0 -548 / -548
SaO2 98
Nasal Cannula flow liters per 4
minute
Physical Exam
General: Respiratory Distress (negative), Comfortable, Chills (negative) and Sweats (negative)
HEENT: Normocephalic and Anicteric
Cardiovascular: S1-S2 and Peripheral Edema (Trace LE edema)
Respiratory: Wheeze (negative), Crackles (Bibasilar), Rhonchi (negative) and Non-Labored Respirations
GI: Soft, Non Distended, Non Tender and Normal Bowel Sounds
Neurology: AO x 3 and Tremors (negative)
Skin: Warm, Dry, Cyanosis (negative) and Jaundice (negative)
Labs/Micro/Reports
Lab Data
08/22/24 04:21
08/21/24 11:28
Laboratory Results
08/22/24 08/22/24 08/23/24
12:13 18:38 01:40
APTT 116.5 H 113.0 H 97.5 H
08/23/24
07:50
APTT 103.8 H
Microbiology
08/18/24 13:46 Pleural Fluid Body Fluid Culture - Final
No Growth After 72 Hours
08/18/24 13:46 Pleural Fluid Gram Stain - Final
--- NOTE | 2024-08-23 11:46 | W.PN.CD ---
Today's Communication / Plan
-
Continue with furosemide and monitor weights and renal function
Continue treatment of PE as directed by pulmonary and hospitalist.
Impression / Plan
-
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
Primary appeals and generalist clerk: Dr. 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
Hypercapneic/hypoxic Respiratory failure:
-on and off BiPAP---currently off
-mixed etiology
-CTPE : pe's noted, bibasilar consilidation vs atelectasis and pleural effusions
-Pulmonary following
-abx started to cover pna,
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
-repeat echo 08/18/24 : Normal left ventricular size with mildly reduced systolic function. LVEF 45-50%. Global hypokinesis, worse in the inferior apex.
-Diuresing nicely, down 9.1kg with stable cr and bp
-etiology suspicious Keytruda?
-She presented with bilateral pleural effusions, hypoxia, orthopnea, and had a proBNP of 13,200
-Diuresis with furosemide 40 mg IV twice daily--will continue with intensive monitoring
-No SGLT2i as she has had frequent UTIs
-resume valsartan, spironolactone when once again taking po, when bp stablizes can consider transition to Entresto, will ask CM to lai
- edema resolved
-Trend daily weight, I/O, and BMP with diuresis
-Heart failure education
PE: on heparin gtt
-pulmonary following
-no right heart strain on echo
Pleural effusions, bilateral -
-Rt s/p Thora -600cc clear fluid (08/18/23)--->chest x-ray read as small to moderate bilateral effusions Patient had chest ultrasound on 08/22/2023 not felt to have enough fluid to safely tap
Abnormal troponin, nonischemic myocardial injury in the setting of acute on chronic heart failure
-Peak troponin 0.138
-Chest pain free
HTN, stable, follow with diuresis
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
-On palliative systemic therapy with Keytruda (Dr. Solares), last dose 08/13/2024
-will need to consider ongoing therapy candidacy with Oncology at op given new CMY
-She deferred surgery as she declined a colostomy
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
Prior breast cancer status postlumpectomy
Anemia of chronic disease
Prognosis is guarded given respiratory failure on bipap and multiple acute on chronic comorbidities, son and daughter in law at the bedside and updated
CCT: 31 minutes
SUBJECTIVE:
awake and alert, off bipap, asking for water which is her only complaint.
DATA:
CTPE: 08/20/24:
Limited study, especially as a result of beam hardening artifact.
Findings at least suspicious for small volume filling defects within right upper lobe pulmonary arterial branches/pulmonary embolism.
Cardiomegaly.
Small bilateral pleural effusions, left greater than right and left lower lobe consolidation with air bronchograms.
TTE 08/18/24 CONCLUSIONS
Normal left ventricular size with mildly reduced systolic function. LVEF 45-
50%.
Global hypokinesis, worse in the inferior apex.
Normal right ventricular size and function.
Moderate mitral stenosis. Peak/mean gradients across the mitral valve are 14/6
mmHg.
Mild tricuspid regurgitation with mildly elevated pulmonary pressures (41
mmHg).
Pleural effusion present.
No prior study available for comparison.
TTE, 05/26/2024 ([facility] [place]):
EF 50-55%.
Mild cLVH. Mildly thickened aortic valve leaflets.
Mild mitral valve stenosis, mitral valve area 1.6 cm�, peak gradient 12 with mean of 7.
Physical Exam
Vital Signs/Labs
Vital Signs
Temp Pulse Resp BP Pulse Ox
97.0 F 87 27 109/46 98
08/23/24 07:19 08/23/24 07:53 08/23/24 06:00 08/23/24 09:17 08/23/24 03:00
08/22/24 08/23/24 08/24/24
06:59 06:59 06:59
Actual Weight 77.4 kg 77.1 kg
08/22/24 04:21
08/21/24 11:28
APTT 103.8 Sec (23.4-35.0) H 08/23/24 07:50
Magnesium 1.9 mg/dl (1.6-2.3) 08/21/24 11:28
08/17/24
14:16
Isk-C-Cwywznubehy Pept [id number]
Physical Exam
Constitutional: No acute distress (sitting in chair)
Respiratory: Other (decreased at basses may be related to effort)
GI: Soft
Neuro/Psych: Alert
Data Reviewed
-
Date of Service: August 23, 2024
Medical Decision Making: Reviewed Test Results
Medical Tests (PFT, Pathology etc): Report Reviewed by me
Labs: Labs Reviewed by me
--- NOTE | 2024-08-23 13:50 | W.PN.HOSP.TC ---
Today's Communication/Plan
-
Assessment / Plan
Assessment / Plan
Comfortable and on nasal cannula
Scleral Anicteric
MMM
JVD positive
Crackles throughout all lung [place]
RRR, S1/S2
Soft, NT, ND, BS+
1+ pitting edema
Warm, Dry
Calm
Acute hypoxemic respiratory failure, document SpO2 85%, second [place] to acute heart failure exacerbation last known EF 50 to 55% per cardiology documentation and was previously on MRAs therefore likely has a history of chronic HFpEF. Therefore this
is acute on chronic HFpEF exacerbation
-IV Lasix
-Monitor urinary output
-Daily weights
-Follow renal function
-Keep K greater than 4, magnesium greater than 2
-Continue MRA
-SGLT2 inhibitor contraindicated due to history of UTIs
-2D echocardiogram completed
-Cardiology consult
-Wean oxygen as tolerated
Acute PE as noted development of small filling defect on CT PE
-Initiated heparin drip follow protocol
?Pneumonia as there is evidence of air bronchograms on CT
-Started Unasyn
Aspiration concerned therefore was made n.p.o. aspiration precaution initiated
evaluated by speech plan video swallow that was completed with recommendations of L5 minced and moist L0 thin liquids when awake full with supervision. Crush large pills if able
Metabolic encephalopathy secondary to acute hypercapnic respiratory failure
-Started BiPAP / HSPRN
Nonischemic myocardial injury in the setting of acute on chronic heart failure
-Downtrending
Metastatic colon cancer
On Keytruda
Per H&P note metastatic colon cancer to the lungs and kidneys however I reviewed imaging with sarah Tucker at bedside on epic chart. Without evidence of metastatic disease to the kidneys or lungs. However there was a renal lesion lesion that would
was not confirmed as malignancy/neoplasm or a hemorrhagic cyst that was measuring 1.8 cm.
I reviewed living well with sarah Ceballos at bedside. Full code as of now. However if requires prolonged intubation or prolonged CPR in the unfortunate event of cardiac arrest then would terminally extubate or stop CPR and let her pass with dignity.
Anticipated Discharge: > 48 hours
Subjective/Interval History
-
Date of Service: August 23, 2024
Seen and examined. No new complaints. No acute overnight events.
Objective Data
-
Labs:
Laboratory Results
08/23/24 08/23/24
01:40 07:50
APTT 97.5 H 103.8 H
Vital Signs:
Vital Signs
Temp Pulse Resp BP Pulse Ox
98.4 F 87 27 109/46 98
08/23/24 11:23 08/23/24 07:53 08/23/24 06:00 08/23/24 09:17 08/23/24 03:00
I&O
08/22/24 08/23/24 08/24/24
06:59 06:59 06:59
Intake Total 585.0 / 601.0 802 / 802
Output Total 2350 / 2350 1350 / 1350
Balance -1765.0 / -1749.0 -548 / -548
[2024-08-23] MEDS: LASIX IV (15:37)
[2024-08-23] MEDS: HEPARIN 25000 UNITS/250 ML IV (18:20)
[2024-08-23] MEDS: NEURONTIN 100 MG PO (20:52)
[2024-08-23] MEDS: LIPITOR 10 MG PO (20:52)
--- NOTE | 2024-08-23 23:11 | PTCARENOTE ---
Received pt at change of shift. Pt oriented x3 but drowsy. Heparin gtt running through R port at 1200 u/hr; currently therapeutic PTT. Pt desat to low 80s while sleeping and taking a few minutes to recover after waking. RT placed pt on BiPAP
with 4L O2. Pt c/o back pain. PRN morhpine adminsitered per order. Resting in bed with call estrada in reach.
[2024-08-24] VITALS (55 sets, daily range): BP systolic 91–133; BP diastolic 34–96; BMI 32.9
--- NOTE | 2024-08-24 01:15 | PTCARENOTE ---
Vital signs unable to be verified prior to 1900 this shift.
--- NOTE | 2024-08-24 02:12 | W.PN.UPDATE ---
Update Note
Progress Note Update
Patient is hypotension with 92/34 and map 52. Will start the patient on Levophed to maintain map >65.
[2024-08-24] MEDS: LEVOPHED 250 IV ×2 (02:24→18:37)
--- NOTE | 2024-08-24 02:36 | PTCARENOTE ---
Pt BP starting to drop. MAPs consistently in the 50s. Notified PAPER MILL MANAGER. Levophed ordered and administered through SQ Port.
[2024-08-24] MEDS: UNASYN IV ×2 (03:48→09:30)
[2024-08-24 04:08] LABS: Venous Blood Gas B.E. 12.5 mmol/L (-4 to +4); Venous Blood Gas HCO3 38.7 mmol/L (22-27); Venous Blood Gas O2 Sat % 99.6 %; Venous Blood Gas pCO2 61 mmHg (35-48); Venous Blood Gas pH 7.41 (7.32-7.43); Venous Blood Gas pO2 139 mmHg (30-50)
[2024-08-24 04:36] LABS: Hematocrit 24.3 % (37.0-47.0); Hemoglobin 7.5 g/dL (12.0-16.0); Mean Corp Hgb Conc. 30.9 g/dL (33.0-37.0); Mean Corpuscular Hgb 29.4 pg (27.0-31.0); Mean Corpuscular Volume 95.3 fL (81.0-99.0); Mean Platelet Volume 10.1 fL (7.4-10.4); Platelet Count 267 10^3/uL (130-400); Red Blood Cell Count 2.55 10^6/uL (4.20-5.40); Red Cell Dist. Width 16.7 % (11.5-14.5); White Blood Cell Count 12.3 10^3/uL (4.8-10.8)
[2024-08-24 04:48] LABS: APTT 64.5 Sec (23.4-35.0)
[2024-08-24 04:58] LABS: Blood Urea Nitrogen 44 mg/dl (7-17); Calcium 8.4 mg/dl (8.4-10.2); Carbon Dioxide 39 mmol/L (22-30); Chloride 95 mmol/L (98-107); Estimated Creatinine Clearance 36 ml/min; Glucose 101 mg/dl (70-99); Sodium 136 mmol/L (135-145); eGFR 49.55
[2024-08-24] MEDS: HEPARIN 3300 UNITS IV (05:02)
[2024-08-24] MEDS: KCL 40 MEQ PO ×2 (05:56→16:58)
--- NOTE | 2024-08-24 07:00 | PTCARENOTE ---
report received from previous RN at change of shift. Pt resting in bed. pt drowsy, arouses easily. AAOx3- able to answer orientation questions correctly, forgetful, anxious at times. SR on telemetry heart rate in 80s. pulses palpable. + 1 lower
extremity edema. levophed infusing at 3 mcg/min for MAP >65. pt on 4L nasal cannula, lung sounds diminished throughout, crackles in bases. active bowel sounds. incontinent of urine, purewick in place. pt updated on plan of care. see worklist for
full nursing assessment and interventions.
[2024-08-24] MEDS: MYRBETRIQ EXTENDED RELEASE 25 MG PO (07:23)
[2024-08-24] MEDS: OCUVITE SOFTGEL 1 CAP PO ×2 (07:23→21:14)
[2024-08-24] MEDS: DESENEX/MITRAZOL/ZEASORB 1 APPLIC TOPICAL ×2 (07:24→21:14)
[2024-08-24] MEDS: VITAMIN B-12 1000 MCG PO (07:24)
[2024-08-24] MEDS: CELEXA 10 MG PO (07:24)
[2024-08-24] MEDS: LIDOCAINE 4% PATCH 1 PATCH TOPICAL (07:25)
[2024-08-24] MEDS: LASIX IV (08:21)
--- NOTE | 2024-08-24 09:23 | W.PN.PUL3 ---
Today's Communication / Plan
-
Continue with Levophed and titrate to keep MAP >65
Continue with BiPAP with sleep
Trend VBG to assure pCO2 + pH remained stable
Continue with antibiotics, now on Zosyn
Diuresis and anti-HTN meds on hold due to shock state
Bedrest while on pressors
Incentive spirometer q1hr while awake
Trend BNP
Pulmonary service will continue to follow along
Assessment
-
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
increasing shortness of breath found to be progressively lethargic and triage technician consulted for hypercapnic/hypoxemic respiratory failure/critical care management 08/20/2024.
Impression:
Shock now on vasopressors - suspect septic vs cardiogenic
Acute HFmrEF exacerbation CHF (TTE from 08/18/2024 shows LVEF: 45-50% with moderate mitral stenosis and moderately elevated PASP: 41 mmHg)
Acute respiratory failure with hypoxia
Acute on chronic respiratory failure with hypercapnia now on nocturnal BiPAP
Recurrent pleural effusion s/p right-sided thoracentesis on 08/18/2024 removing 600 cc of clear yellow transudative fluid
Suspected submassive PE involving the right upper lobe seen on CTA chest from 08/20/2024
Sepsis due to LLL pneumonia
Leukocytosis
Anemia
JON
Hyperglycemia - resolved
Conditions present prior to admission:
Hypertension
Hyperlipidemia
Recurrent UTIs.
CHF preserved EF
Moderate mitral stenosis
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
Breast cancer status postlumpectomy.
Colon cancer-distal sigmoid diagnosed years ago, resection offered, however, told likely would have permanent colostomy and she elected to try immunotherapy Keytruda instead-recently restarted on Keytruda (last dose 08/13/2024)-reports of metastatic
disease to the lungs, right adrenal gland, spleen, however, last PET scan without obvious mets -managed by [facility]-Dr. Solares
Plan
Respiratory decompensation likely multifactorial including congestive heart failure preserved EF, atelectasis, suspected pneumonia of LLL, mitral stenosis, pulmonary embolism, pleural effusion enlarging and possibly immunotherapy
Supplemental oxygen as needed-attempt to wean while keeping SpO2 >90%
Check ambulatory pulse oximetry prior to discharge
Continue with BiPAP with sleep and trend VBG to assure pH + pCO2 remained stable
Aspiration precautions
Diet as per COMPLETIONS MANAGER � s/p VFSS done on 08/22/2024, clear for IDDSI level 5 diet with thin liquids
Nebulizers if needed-currently not bronchospastic-Xopenex as needed
CTA chest 08/20/2024-limited study with beam hardening artifact, suspicion for small volume right upper lobe pulmonary embolism and small bilateral pleural effusions with left lower lobe consolidation with air bronchograms
D-dimer elevated consistent with probable clot/PE
Lower extremity ultrasound 08/21/2024-no evidence for DVT
Continue heparin drip eventually convert to oral anticoagulant and treat for minimum of 3-6 months
Persistent small to moderate pleural effusions-recommend thoracentesis-interventional radiology consulted 08/22/2024-thoracentesis canceled as minimal pleural effusions seen on chest US on 08/22/2024
- Follow-up pleural fluid culture from 08/18/2024 ([facility])
Continue with antibiotics, currently on Zosyn (started today) s/p Unasyn (started 08/21/2024 - 08/24/2024); got 1 dose of IV vanco today as well --> DC'd given negative MRSA swab
- Recommend to complete at least 10-14 days assuming that she continues to clinically improve and remains afebrile for 48 hours prior to stopping antibiotics
- Repeat imaging in 4 to 6 weeks to follow pneumonia resolution
Cardiology following-correspondence reviewed
Echocardiogram summarized below-noted to moderate mitral stenosis
Diuresis now on hold given hypotension requiring vasopressors
Previously on lasix 40 mg IV twice daily in addition to spironolactone 50 mg twice daily
Diovan also now on hold - resume BP meds once BP improves and off pressors
Monitor renal function, electrolytes, intake/output, lower extremity edema and weight
Replace electrolytes as needed
Continue to follow hemoglobin
Transfuse as needed to keep Hb>7g/dL
Monitor blood sugar with goal >100 and <180
Insulin supplementation as needed
Family inquiring whether oncology needs to be involved- Dr. Limon told them not at this point
Oncology is at [place]
History of colon cancer years ago-declined resection as high risk for colostomy and wanted immunotherapy only which she tolerated and now with resurgence of local disease once again wishing immunotherapy-of note PET scan reviewed and no evidence for
distal metastatic disease
DVT prophylaxis-heparin gtt
Nutrition if able
Early mobilization/PT/OT once off pressors
Dr. Liomn reviewed with 2 sons/and/niece-cane feeder on 08/20/2024 and reviewed with 2 sons on 08/21/2024 and 1 son/pkhvkbdk-xp-rrh 08/22/2024-told respiratory decompensation multifactorial including CHF, atelectasis, pneumonia, pleural effusion and
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
Goals of care discussion recommended
Pulmonary service will continue to follow along.
Patient is critically ill now on vasopressors.
Diagnostic data:
Chest x-ray 08/17/2024-moderate bilateral pleural effusions
Chest x-ray 08/19/2024-low lung volumes, moderate bilateral pleural effusions
Thoracentesis 08/18/2024-right sided, -600 mL clear yellow pleural fluid
Echocardiogram 08/18/2024-EF 45-50%, global hypokinesis worse in the inferior apex, moderate mitral stenosis
Critical care statement: A total of 37 minutes of critical care time was provided for this patient today. This includes management of unstable vital signs, evaluation of the patient at bedside, reviewing the patient's pertinent medical records
including radiographs, microbiology, laboratory evaluations, and discussion with primary team, consultants, pharmacy, nutrition, physical therapy, case management, charge nurse, critical care nursing, and respiratory therapy.
Subjective Data
-
Date of Service:
Date of Service: August 24, 2024
Chief Complaint: Pulmonary Follow Up
Subjective:
Patient seen and evaluated this morning (late note entry). Patient sleeping in no acute distress. Overnight she was hypotensive requiring Levophed. She currently denies chest pain, abdominal pain, nausea, fevers or chills. She was on Levophed at
4mcg/min this AM. She is saturating 94% on 4 L/min, heart rate 91 and BP 118/54. Heparin drip is also on.
Review of Systems
General: Other (Negative unless mentioned above)
Objective Data
Data Reviewed
Vital Signs / I&O / Oxygen:
Vital Signs
Temp Pulse Resp BP Pulse Ox
99.1 F 89 26 109/39 93
08/24/24 03:00 08/24/24 08:00 08/24/24 08:00 08/24/24 08:00 08/24/24 08:00
Intake and Output
08/23/24 08/24/24 08/25/24
06:59 06:59 06:59
Intake Total 802 / 802 268 / 268
Output Total 1350 / 1350
Balance -548 / -548 268 / 268
SaO2 93
Nasal Cannula flow liters per 4
minute
Physical Exam
General: Respiratory Distress (negative), Comfortable, Chills (negative) and Sweats (negative)
HEENT: Normocephalic and Anicteric
Cardiovascular: S1-S2 and Peripheral Edema (Trace LE edema)
Respiratory: Wheeze (negative), Crackles (Bibasilar), Rhonchi (negative) and Non-Labored Respirations
GI: Soft, Non Distended, Non Tender and Normal Bowel Sounds
Neurology: AO x 3 and Tremors (negative)
Skin: Warm, Dry, Cyanosis (negative) and Jaundice (negative)
Labs/Micro/Reports
Lab Data
08/24/24 03:55
08/24/24 03:55
Laboratory Results
08/24/24
03:55
APTT 64.5 H
Microbiology
08/18/24 13:46 Pleural Fluid Body Fluid Culture - Final
No Growth After 72 Hours
08/18/24 13:46 Pleural Fluid Gram Stain - Final
[2024-08-24] MEDS: KCL ELIXIR 40 MEQ PO (10:31)
--- NOTE | 2024-08-24 11:39 | PHA.VAN.IN ---
Assessment
- Assessment
Renal Function: Appears elevated from baseline (BASELINE SCR ~0.7)
Concomitant Antimicrobials: PIPERACILLIN/TAZOBACTAM
Plan
- Plan
Initial / Loading Dose: VANCO 1500MG X1
Monitoring: RANDOM 08/25 @0600
MRSA Screen: Ordered per protocol
Pharmacokinetics Vancomycin I
- -
Patient Age: 84
Patient Sex: Female
Vancomycin Day #: 1
Indication: PULM
Requesting Provider: DR. TOM LYNN
Height / Weight:
Height 5 ft 1 in
Actual Weight 78.9 kg
Pertinent Past Medical History: METASTATIC COLON CANCER ON KEYTRUDA, UTERINE CA
- Vital Signs / Lab Results
Temp Pulse Resp BP Pulse Ox
99.3 F 82 21 106/52 95
08/24/24 07:40 08/24/24 10:01 08/24/24 10:01 08/24/24 10:01 08/24/24 10:01
Lab Results - Hematology
08/22/24 08/24/24
04:21 03:55
WBC 11.5 H 12.3 H
Lab Results - Chemistry
08/21/24 08/24/24
11:28 03:55
BUN 41 H 44 H
Creatinine 0.9 1.1 H
Estimated Creat Clear 45 36
--- NOTE | 2024-08-24 11:53 | W.PN.HOSP.TC ---
Today's Communication/Plan
-
Pressor support maintain MAP greater than 65
IV antibiotics broadened to vancomycin and Zosyn
Blood cultures x 2 obtained
Follow-up hemoglobin
Continue nasal cannula as tolerated
Infectious diseases consulted
Holding diuretics and antihypertensives
Continue to have goals of care discussions
Assessment / Plan
Assessment / Plan
Comfortable and on nasal cannula
Scleral Anicteric
MMM
Crackles bibasilar
RRR, S1/S2
Soft, NT, ND, BS+
1+ pitting edema
Warm, Dry
Calm
Shock coronary shock septic for circulatory
-Unclear as to source could be pulmonary initially on Unasyn however white count increasing slightly and hypotensive requiring Levophed therefore brought into vancomycin and Zosyn
-Blood cultures x 2 ordered
-ID consult
-Hold diuretics and antihypertensives
-Monitor volume status closely
-Hemoglobin downtrending however without evidence of acute bleed though on heparin and if this is septic shock
-If less than 7 transfuse
-Check peripheral smear
Hypokalemia
Replete
Primary metabolic alkalosis with secondary respiratory acidosis
-Metabolic alkalosis likely related to contraction and diuresis mild respiratory acidosis is chronic in the setting of COPD
-Holding diuretics expect to improve
-If continue to rise as bicarb greater than 42 may then would consider Diamox but would discuss this with cardiology
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
-IV Lasix Hold due to hypotension
-Monitor urinary output
-Daily weights
-Follow renal function
-Keep K greater than 4, magnesium greater than 2
-Hold MRA
-SGLT2 inhibitor contraindicated due to history of UTIs
-2D echocardiogram completed
-Cardiology cfollowing
-Wean oxygen as tolerated
Acute PE as noted development of small filling defect on CT PE
-Initiated heparin drip follow protocol
-Monitor Hgb and for bleeding
Aspiration concerned therefore was made n.p.o. aspiration precaution initiated
evaluated by speech plan video swallow that was completed with recommendations of L5 minced and moist L0 thin liquids when awake full with supervision. Crush large pills if able
Metabolic encephalopathy secondary to acute hypercapnic respiratory failure
-Started BiPAP 07/11 HSPRN
Nonischemic myocardial injury in the setting of acute on chronic heart failure
-Downtrending
Metastatic colon cancer
On Keytruda
Per H&P note metastatic colon cancer to the lungs and kidneys however I reviewed imaging with son Tucker at bedside on epic chart. Without evidence of metastatic disease to the kidneys or lungs. However there was a renal lesion lesion that would
was not confirmed as malignancy/neoplasm or a hemorrhagic cyst that was measuring 1.8 cm.
I spoke with Marquita at bedside. Full update was provided. Discussed potentially comfort care/hospice. They understand if she does not improve in the next 24 to 48 hours then we may be heading in that direction or if she is requiring more
pressor support or needing more oxygen. They verbalized understanding. They had previously stated she herself elected full code to do everything in the instance of cardiac arrest/respiratory distress however if that were to happen and she is not
able to make her own medical decisions then they would stay to stop then she would be made DNR/DNI.
Anticipated Discharge: > 48 hours
Subjective/Interval History
-
Date of Service: August 24, 2024
Seen and examined
Overnight hypotensive requiring Levophed
Holding diuretics and antihypertensives
Objective Data
-
Labs:
Laboratory Results
08/24/24 08/24/24
03:55 11:52
WBC 12.3 H
Hgb 7.5 L
Hct 24.3 L
Plt Count 267
APTT 64.5 H Pending
Sodium 136
Potassium 3.0 L
Chloride 95 L
Carbon Dioxide 39 H
BUN 44 H
Creatinine 1.1 H
Glucose 101 H
Calcium 8.4
Vital Signs:
Vital Signs
Temp Pulse Resp BP Pulse Ox
99.3 F 82 21 106/52 95
08/24/24 07:40 08/24/24 10:01 08/24/24 10:01 08/24/24 10:01 08/24/24 10:01
I&O
08/23/24 08/24/24 08/25/24
06:59 06:59 06:59
Intake Total 802 / 802 268 / 268
Output Total 1350 / 1350
Balance -548 / -548 268 / 268
[2024-08-24 12:35] LABS: APTT 97.3 Sec (23.4-35.0)
[2024-08-24] MEDS: ZOSYN 50 IV ×3 (12:42→23:07)
[2024-08-24 12:53] LABS: Hematocrit 25.9 % (37.0-47.0); Hemoglobin 7.9 g/dL (12.0-16.0); Mean Corp Hgb Conc. 30.5 g/dL (33.0-37.0); Mean Corpuscular Hgb 29.4 pg (27.0-31.0); Mean Corpuscular Volume 96.3 fL (81.0-99.0); Mean Platelet Volume 10.1 fL (7.4-10.4); Platelet Count 288 10^3/uL (130-400); Red Blood Cell Count 2.69 10^6/uL (4.20-5.40); Red Cell Dist. Width 17.2 % (11.5-14.5); White Blood Cell Count 12.6 10^3/uL (4.8-10.8)
--- NOTE | 2024-08-24 13:02 | CON.ID ---
Consultation
-
Date/Time Consultation Requested: 08/24/2024 1117
Date/Time Consultation Performed: 08/24/2024 1250
Requesting Provider: Dr. Juan
Performing Provider: Dr. Ashford
Reason for Consultation: Pneumonia, hypoxemia
Chief Complaint / Past History
History of Present Illness
Britni Purcell is an 84-year-old female with a history of metastatic colon cancer (currently on Keytruda; followed at [facility]) being evaluated at the request of Dr. Juan regarding hypoxemia. History is obtained from chart review, along with patient
interview.
The patient initially presented to [facility] on 08/17/2024 for further evaluation of shortness of breath which had progressed over the prior several days. At the time of admission she had also been noted to be confused as seen by the
family. Increased leg swelling has been noted over the prior week, but she was not having any fevers or chills. It is noted that she previously was exposed to COVID in the home.
Hospital course has been significant for ongoing low-grade leukocytosis, although she has not had any fevers. She was placed on empiric antibiotics on 08/21 for possible aspiration pneumonia. Earlier today she was found to have hypotension, and now
has been started on norepinephrine, and antibiotics have been expanded. Infectious Diseases is asked to comment upon further antibiotic management.
Past History
Additional Past Medical History:
Stage IV colon cancer; on Keytruda. Mets to lungs, (R) adrenal gland, spleen. Followed at [facility]
Hx uterine cancer (papillary)
CHF
Moderate mitral stenosis
Additional Past Surgical History:
Port-A-Cath placement
Allergy History:
No Known Allergies Allergy (Verified 08/17/24 13:13)
Medications Reviewed: Yes
Current Antibiotics:
Zosyn 3.375 g IV every 6 hours
Vancomycin (dosing per pharmacy)
Social History
Tobacco: Non-Smoker
Alcohol: None
Drug: None
Living: With Family
Family History
Family History: Not Pertinent
Review of Systems
Vital Signs
Temp Pulse Resp BP Pulse Ox
99.3 F 82 21 106/52 95
08/24/24 07:40 08/24/24 10:01 08/24/24 10:01 08/24/24 10:01 08/24/24 10:01
Physical Exam
Physical Exam
Constitutional: No Acute Distress, Comfortable, Chronically Ill and Non-toxic
Eyes: Pupils Equal, Pupils Round, No Conjunctival Hemorrhage and Sclera Anicteric
Oral: No Thrush and No Ulcers
Cardiovascular: S1/S2; Negative S3/S4
Pulmonary: Rales and Non Labored; Negative Wheezes or Rhonchi
Gastrointestinal: Soft, Non Tender, Non Distended and Normal Bowel Sounds
Musculoskeletal: Negative Joint Swelling
Skin: Warm and Dry; Negative Rash or Jaundice
Neurological: Awake and Alert
Psychological: Calm
.
Lab / Diagnostic Study Results
08/24/24 12:32
08/24/24 03:55
Abs Immat Gran (auto) 0.1 10^3/uL (0-0.05) H 08/18/24 05:50
Absolute Neuts (auto) 12.5 10^3/uL (1.4-6.5) H 08/18/24 05:50
Absolute Lymphs (auto) 0.7 10^3/uL (1.2-3.4) L 08/18/24 05:50
Absolute Monos (auto) 0.8 10^3/uL (0.1-0.6) H 08/18/24 05:50
Absolute Basos (auto) 0.1 10^3/uL (0-0.2) 08/18/24 05:50
Immature Gran % 0.4 % (0-0.5) 08/18/24 05:50
Neutrophils % 88.7 % (42.2-75.2) H 08/18/24 05:50
Lymphocytes % 4.6 % (20.5-51.1) L 08/18/24 05:50
Monocytes % 5.8 % (1.7-9.3) 08/18/24 05:50
Eosinophils % 0.1 % (0-6) 08/18/24 05:50
Basophils % 0.4 % (0-2) 08/18/24 05:50
Microbiology Results
Micro:
08/24/24 12:32 Nasal Screen MRSA (PCR) - Pending
Nose
08/24/24 12:32 Blood Culture - Pending
Blood/Venous
08/24/24 11:52 Blood Culture - Pending
Blood/Venous
08/18/24 13:46 Body Fluid Culture - Final
Pleural Fluid No Growth After 72 Hours
Gram Stain - Final
08/17/24 14:10 Influenza Types A & B ([place]) - Final
Nasal Swab Negative for Influenza A & B, NAAT
Negative results must be combined with clinical observations
and patient history.
Nucleic Acid Amplification test (NAAT)performed on the
[employer] platform.
Imaging:
08/23/2024 CXR (portable): There is a stable moderate left pleural effusion with underlying compressive atelectasis at the left base similar to the prior study. There is minimal right pleural effusion with subsegmental atelectasis at the right lung
base less prominent than on the prior study
Assessment / Plan
New hypotension requiring addition of norepinephrine
Suspected prior aspiration event
Leukocytosis
Anemia
PE
Stage IV colon cancer; on Keytruda
Hx uterine cancer (papillary)
Hx HTN
Dyslipidemia
CHF
Moderate mitral stenosis
Recommendations:
CXR reviewed, and not clear to what extent pneumonia may be playing a part here. Patient has little in the way of symptomatology for respiratory infection at present.
Suspect leukocytosis is multifactorial.
Continue with Zosyn for the present while further workup ensues.
Discontinue further vancomycin for now; will add back if necessary.
Follow white count and temperature curve.
Follow pressor requirements.
Follow blood cultures.
Further recommendations as additional data is returned.
[2024-08-24] MEDS: VANCOCIN 530 MG IV (13:31)
[2024-08-24] MEDS: HEPARIN 25000 UNITS/250 ML IV (14:04)
[2024-08-24] MEDS: MORPHINE SULFATE 2 MG IV ×2 (14:49→21:29)
[2024-08-24 19:32] LABS: APTT 83.6 Sec (23.4-35.0)
[2024-08-24] MEDS: NEURONTIN 100 MG PO (21:14)
--- NOTE | 2024-08-24 23:58 | PTCARENOTE ---
Pt continues to report back pain - attempted numerous repositions with little to no improvement. Morphine 2mg IV provided with some relief. Pt refused to wear BiPAP HS. Will continue to monitor and assess.
[2024-08-25] VITALS (53 sets, daily range): BP systolic 92–157; BP diastolic 32–94; BMI 33.5
[2024-08-25] MEDS: MORPHINE SULFATE 2 MG IV (02:17)
[2024-08-25] MEDS: ZOSYN 50 IV (05:04)
[2024-08-25 05:27] LABS: Hematocrit 25.2 % (37.0-47.0); Hemoglobin 7.7 g/dL (12.0-16.0); Mean Corp Hgb Conc. 30.6 g/dL (33.0-37.0); Mean Corpuscular Hgb 29.5 pg (27.0-31.0); Mean Corpuscular Volume 96.6 fL (81.0-99.0); Mean Platelet Volume 10.3 fL (7.4-10.4); Platelet Count 263 10^3/uL (130-400); Red Blood Cell Count 2.61 10^6/uL (4.20-5.40); Red Cell Dist. Width 17.1 % (11.5-14.5); White Blood Cell Count 12.6 10^3/uL (4.8-10.8)
[2024-08-25 05:33] LABS: APTT 96.1 Sec (23.4-35.0)
[2024-08-25 05:50] LABS: Blood Urea Nitrogen 42 mg/dl (7-17); Calcium 8.3 mg/dl (8.4-10.2); Carbon Dioxide 38 mmol/L (22-30); Chloride 96 mmol/L (98-107); Estimated Creatinine Clearance 40 ml/min; Glucose 118 mg/dl (70-99); Potassium 4.1 mmol/L (3.5-5.1); Sodium 137 mmol/L (135-145); eGFR 55.55
[2024-08-25] MEDS: LEVOPHED 250 IV ×2 (07:23→20:46)
[2024-08-25] MEDS: HEPARIN 25000 UNITS/250 ML IV (07:24)
--- NOTE | 2024-08-25 08:29 | W.PN.CD ---
Today's Communication / Plan
-
Wean norepinephrine for SBP >100
Holding diuretics and GDMT for low blood pressures. Add back as tolerated
Continue antibiotics per primary team and ID
Continue heparin for PE
Impression / Plan
-
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
Primary technical sales specialist: Dr. 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
Distributive shock
-Likely from pneumonia. ID consulted
-I suspect that we could wean pressors if we aim for systolic BP >100. Her diastolic pressures are chronically low so MAP is often <65 at baseline
-Antibiotics per primary team and infectious disease
Hypercapneic/hypoxic Respiratory failure:
-mixed etiology. treated for HF, PE and PNA
-CTPE : pe's noted, bibasilar consilidation vs atelectasis and pleural effusions
-Pulmonary following
-abx started to cover pna, heparin for PE, diuretics on hold for low BPs
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
-repeat echo 08/18/24 : Normal left ventricular size with mildly reduced systolic function. LVEF 45-50%. Global hypokinesis, worse in the inferior apex.
-etiology suspicious Keytruda?
-She presented with bilateral pleural effusions, hypoxia, orthopnea, and had a proBNP of 13,200
-resume valsartan, spironolactone when BP allows, when bp stablizes can consider transition to Entresto, will ask CM to lai
-No SGLT2i as she has had frequent UTIs
-Diuresis on hold due to low blood pressures
-We will need to find new dry weight prior to discharge
PE: on heparin gtt
-pulmonary following
-no right heart strain on echo
anemia - monitor closely in patient on heparin
Pleural effusions, bilateral -
-Rt s/p Thora -600cc clear fluid (08/18/23)--->chest x-ray read as small to moderate bilateral effusions Patient had chest ultrasound on 08/22/2023 not felt to have enough fluid to safely tap
Abnormal troponin, nonischemic myocardial injury in the setting of acute on chronic heart failure
-Peak troponin 0.138
-Chest pain free
HTN, stable, follow with diuresis
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
-On palliative systemic therapy with Keytruda (Dr. Solares), last dose 08/13/2024
-will need to consider ongoing therapy candidacy with Oncology at op given new CMY
-She deferred surgery as she declined a colostomy
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
Prior breast cancer status postlumpectomy
SUBJECTIVE:
Feels that her breathing has improved this morning. Asked me how much it snowed outside. No telemetry.
DATA:
CTPE: 08/20/24:
Limited study, especially as a result of beam hardening artifact.
Findings at least suspicious for small volume filling defects within right upper lobe pulmonary arterial branches/pulmonary embolism.
Cardiomegaly.
Small bilateral pleural effusions, left greater than right and left lower lobe consolidation with air bronchograms.
TTE 08/18/24 CONCLUSIONS
Normal left ventricular size with mildly reduced systolic function. LVEF 45-
50%.
Global hypokinesis, worse in the inferior apex.
Normal right ventricular size and function.
Moderate mitral stenosis. Peak/mean gradients across the mitral valve are 14/6
mmHg.
Mild tricuspid regurgitation with mildly elevated pulmonary pressures (41
mmHg).
Pleural effusion present.
No prior study available for comparison.
TTE, 05/26/2024 ([facility]):
EF 50-55%.
Mild cLVH. Mildly thickened aortic valve leaflets.
Mild mitral valve stenosis, mitral valve area 1.6 cm�, peak gradient 12 with mean of 7.
Physical Exam
Vital Signs/Labs
Vital Signs
Temp Pulse Resp BP Pulse Ox
98.5 F 87 22 124/48 92
08/25/24 03:31 08/25/24 06:00 08/25/24 06:00 08/25/24 06:00 08/25/24 06:00
08/24/24 08/25/24 08/26/24
06:59 06:59 06:59
Actual Weight 78.9 kg 80.4 kg
08/25/24 05:03
08/25/24 05:03
APTT 96.1 Sec (23.4-35.0) H 08/25/24 05:03
Magnesium 1.9 mg/dl (1.6-2.3) 08/21/24 11:28
08/17/24
14:16
[id number] Pept [id number]
Physical Exam
Constitutional: No acute distress and Comfortable
Cardiovascular: Rhythm & rate is regular, Pedal edema is absent, S1S2 is normal and Murmur/rub/gallop absent
Respiratory: Respiratory effort normal and Crackles Present
Neuro/Psych: AO x 3
Data Reviewed
-
Date of Service: August 25, 2024
Medical Decision Making: Reviewed Test Results, Independent Historian Assessment, Test Interpretation and Review of Case with other Provider
EKG: Tracing Personally Visualized and interpreted
Echo: Report Reviewed by me
X-Ray/CT/US/MRI/NUC/PET: Image Personally Visualized and interpreted
Labs: Labs Reviewed by me
--- NOTE | 2024-08-25 08:49 | W.PN.PUL3 ---
Today's Communication / Plan
-
Clinically worsening, now on pressors
Remains on 4L NC
Remains on IV heparin/lasix
Refused her BIPAP
She is full code, family would like to make her DNR/agreeable to hospice consult
Discussed with care team
Assessment
-
84-year-old never smoking female with a history of uterine cancer/hysterectomy, breast cancer status postlumpectomy and colon cancer (no obvious metastatic disease on last PET scan) on Keytruda last received 1 week [employer] presented with confusion and
increasing shortness of breath found to be progressively lethargic and pressroom foreman consulted for hypercapnic/hypoxemic respiratory failure/critical care management 08/20/2024.
Impression:
Shock now on vasopressors - suspect septic vs cardiogenic
Acute HFmrEF exacerbation CHF (TTE from 08/18/2024 shows LVEF: 45-50% with moderate mitral stenosis and moderately elevated PASP: 41 mmHg)
Acute respiratory failure with hypoxia
Acute on chronic respiratory failure with hypercapnia now on nocturnal BiPAP
Recurrent pleural effusion s/p right-sided thoracentesis on 08/18/2024 removing 600 cc of clear yellow transudative fluid
Small multiple PE involving the right upper lobe seen on CTA chest from 08/20/2024
Sepsis due to LLL pneumonia
Leukocytosis
Anemia
JON
Hyperglycemia - resolved
Conditions present prior to admission:
Hypertension
Hyperlipidemia
Recurrent UTIs.
CHF preserved EF
Moderate mitral stenosis
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
Breast cancer status postlumpectomy.
Colon cancer-distal sigmoid diagnosed years ago, resection offered, however, told likely would have permanent colostomy and she elected to try immunotherapy Keytruda instead-recently restarted on Keytruda (last dose 08/13/2024)-reports of metastatic
disease to the lungs, right adrenal gland, spleen, however, last PET scan without obvious mets -managed by [facility]-Dr. Solares
Plan
Respiratory decompensation likely multifactorial including congestive heart failure preserved EF, atelectasis, suspected pneumonia of LLL, mitral stenosis, pulmonary embolism, pleural effusion enlarging and possibly immunotherapy
Remains on 4l NC
Supplemental oxygen as needed-attempt to wean while keeping SpO2 >90%
Check ambulatory pulse oximetry prior to discharge
Continue with BiPAP with sleep and trend VBG to assure pH + pCO2 remained stable-- 7.41/61, prior 7.
Has refused BIPAP
Aspiration precautions
Diet as per TILE SHADER � s/p VFSS done on 08/22/2024, clear for IDDSI level 5 diet with thin liquids
Nebulizers if needed-currently not bronchospastic-Xopenex as needed
CTA chest 08/20/2024-limited study with beam hardening artifact, suspicion for small volume right upper lobe pulmonary embolism and small bilateral pleural effusions with left lower lobe consolidation with air bronchograms
D-dimer elevated consistent with probable clot/PE
Lower extremity ultrasound 08/21/2024-no evidence for DVT
Continue heparin drip eventually convert to oral anticoagulant and treat for minimum of 3-6 months
Persistent small to moderate pleural effusions-recommend thoracentesis-interventional radiology consulted 08/22/2024-thoracentesis canceled as minimal pleural effusions seen on chest US on 08/22/2024
- Follow-up pleural fluid culture from 08/18/2024 (NGTD)
Continue with antibiotics, currently on Zosyn (started today) s/p Unasyn (started 08/21/2024 - 08/24/2024); got 1 dose of IV vanco today as well --> DC'd given negative MRSA swab
Recommend to complete at least 10-14 days assuming that she continues to clinically improve and remains afebrile for 48 hours prior to stopping antibiotics
Repeat imaging in 4 to 6 weeks to follow pneumonia resolution
Cardiology following-correspondence reviewed
Echocardiogram summarized below-noted to moderate mitral stenosis
Diuresis now on hold given hypotension requiring vasopressors
Previously on lasix 40 mg IV twice daily in addition to spironolactone 50 mg twice daily
Diovan also now on hold - resume BP meds once BP improves and off pressors
Monitor renal function, electrolytes, intake/output, lower extremity edema and weight
Replace electrolytes as needed
Now on pressors
Continue to follow hemoglobin
Transfuse as needed to keep Hb>7g/dL
Monitor blood sugar with goal >100 and <180
Insulin supplementation as needed
DVT prophylaxis-heparin gtt
Nutrition if able
Early mobilization/PT/OT once off pressors
Family Discussions
Sakshi 08/25/24- spoke to family at bedside, regarding code status. She is now on pressors, refused BIPAP, not responding to treatment. They agree that she would not want aggressive measures, she wants to 'live her life her way.' They had wanted to
make her DNR 2 days prior but not changed in chart. We discussed hospice, and they were agreeable to consult.
Dr. Limon reviewed with 2 sons/and/niece-bmet on 08/20/2024 and reviewed with 2 sons on 08/21/2024 and 1 son/wfabnvle-df-roc 08/22/2024-told respiratory decompensation multifactorial including CHF, atelectasis, pneumonia, pleural effusion and
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
Family inquiring whether oncology needs to be involved- Dr. Limon told them not at this point
Oncology is at [place]
History of colon cancer years ago-declined resection as high risk for colostomy and wanted immunotherapy only which she tolerated and now with resurgence of local disease once again wishing immunotherapy-of note PET scan reviewed and no evidence for
distal metastatic disease
Goals of care discussion recommended
Diagnostic data:
Chest x-ray 08/17/2024-moderate bilateral pleural effusions
Chest x-ray 08/19/2024-low lung volumes, moderate bilateral pleural effusions
CXR 08/23/24- There is a stable moderate left pleural effusion with underlying compressive atelectasis at the left base similar to the prior study. There is minimal right pleural effusion with subsegmental atelectasis at the right lung base less
prominent than on the prior study
Thoracentesis 08/18/2024-right sided, -600 mL clear yellow pleural fluid
Chest US 08/22/24- Trace right pleural effusion. Amount of fluid present not sufficient for safe thoracentesis.
Echocardiogram 08/18/2024-EF 45-50%, global hypokinesis worse in the inferior apex, moderate mitral stenosis
-----
Critical care statement: A total of 53 minutes of critical care time was provided for this patient today. This includes management of unstable vital signs, evaluation of the patient at bedside, reviewing the patient's pertinent medical records
including radiographs, microbiology, laboratory evaluations, and discussion with primary team, consultants, pharmacy, nutrition, physical therapy, case management, charge nurse, critical care nursing, and respiratory therapy.
Subjective Data
-
Date of Service:
Date of Service: August 25, 2024
Chief Complaint: Pulmonary Follow Up
Subjective:
Remains on 4L NC, no new SOB
C/o tiredness only
Refused BIPAP
On pressors now
Family at bedside
Objective Data
Data Reviewed
Vital Signs / I&O / Oxygen:
Vital Signs
Temp Pulse Resp BP Pulse Ox
98.5 F 87 22 124/48 92
08/25/24 03:31 08/25/24 06:00 08/25/24 06:00 08/25/24 06:00 08/25/24 06:00
Intake and Output
08/24/24 08/25/24 08/26/24
06:59 06:59 06:59
Intake Total 268 / 268 1864 / 1864
Output Total 400 / 400
Balance 268 / 268 1464 / 1464
SaO2 92
Nasal Cannula flow liters per 4
minute
Physical Exam
General: Respiratory Distress (negative), Comfortable, Chills (negative) and Sweats (negative)
HEENT: Normocephalic and Anicteric
Cardiovascular: S1-S2 and Peripheral Edema (Trace LE edema)
Respiratory: Wheeze (negative), Crackles (Bibasilar), Rhonchi (negative) and Non-Labored Respirations
GI: Soft, Non Distended, Non Tender and Normal Bowel Sounds
Neurology: AO x 3 and Tremors (negative)
Skin: Warm, Dry, Cyanosis (negative) and Jaundice (negative)
Labs/Micro/Reports
Lab Data
08/25/24 05:03
08/25/24 05:03
Laboratory Results
08/24/24 08/24/24 08/25/24
11:52 19:11 05:03
APTT 97.3 H 83.6 H 96.1 H
Microbiology
08/24/24 12:32 Nose Nasal Screen MRSA (PCR) - Final
MRSA not detected - performed by PCR methodology.
[2024-08-25] MEDS: CELEXA 10 MG PO (09:23)
[2024-08-25] MEDS: DESENEX/MITRAZOL/ZEASORB 1 APPLIC TOPICAL ×2 (09:24→21:11)
[2024-08-25] MEDS: OCUVITE SOFTGEL 1 CAP PO ×2 (09:24→21:11)
[2024-08-25] MEDS: LIDOCAINE 4% PATCH 1 PATCH TOPICAL (09:24)
[2024-08-25] MEDS: VITAMIN B-12 1000 MCG PO (09:24)
[2024-08-25] MEDS: MYRBETRIQ EXTENDED RELEASE 25 MG PO (09:24)
--- NOTE | 2024-08-25 10:20 | CM ---
Addendum entered by Jovan Lazaro 08/25/24 11:31:
Hospice consult noted. Both pt and her family are aware and they requested hospice.
A referral to hospice made.
D/C plan: hospice care with hospice.
Original Note:
CM following re: discharge planning.
Reviewed pt's chart, met with pt. pt's sons and their spouse at bedside.
PT and OT evaluations noted - SNF level of care recommended.
Both pt and her family are aware. Pt's sons expressed their disappointing feelings and they stated that pt might need a palliative care. In meantime a list of SNFs provided to pt and her family and they stated they will review and will let me know
about their choices.
Per chart review, goals of care ongoing discussions with the pt and her family.
D/C plan: uncertain at this time and will depend on pt's progress. Pt and her family have a list of SNFs
CM will follow with discharge plan updates as hospitalization progresses
--- NOTE | 2024-08-25 10:43 | W.PN.ID1 ---
Date of Service
Date of Service: August 25, 2024
Today's Communication
Narrow to cefdinir alone. Follow pressor requirements.
Assessment / Plan
Hypotension; requiring norepinephrine
Suspected prior aspiration event
Leukocytosis
Anemia
PE
Stage IV colon cancer; on Keytruda
Hx uterine cancer (papillary)
Hx HTN
Dyslipidemia
CHF
Moderate mitral stenosis
Recommendations:
CXR reviewed, and not clear to what extent pneumonia may be playing a part here. Patient has little in the way of symptomatology for respiratory infection at present.
Suspect leukocytosis is multifactorial.
Narrow antibiotics to oral cefdinir.
Follow white count and temperature curve.
Wean pressors as as able.
Follow blood cultures.
����������������������������������������������������������
Chief Complaint
-: Other (Hypotension)
Subjective / Review of Systems
Patient seen and examined. Reports feels 'ill', but no fevers. No significant cough.
Vital Signs / Physical Exam
Vital Signs
Vital Signs
Temp Pulse Resp BP Pulse Ox
98.8 F 85 23 122/47 99
08/25/24 07:17 08/25/24 09:00 08/25/24 09:00 08/25/24 09:00 08/25/24 09:00
Physical Exam
Constitutional: Comfortable, Chronically Ill and Non-toxic
Eyes: Sclera Anicteric
Cardiovascular: S1/S2; Negative S3/S4
Pulmonary: Coarse and Non Labored
Gastrointestinal: Soft, Non Tender and Non Distended
Extremities: Edema; Negative Cyanosis or Erythema
Skin: Warm and Dry; Negative Rash or Jaundice
Neurological: Awake and Alert
Psychological: Calm
Objective Data
Lab Data
Lab Results
08/25/24 05:03
08/25/24 05:03
APTT 96.1 Sec (23.4-35.0) H 08/25/24 05:03
Estimated Creat Clear 40 ml/min 08/25/24 05:03
Total Bilirubin 0.5 mg/dl (0.2-1.3) 08/18/24 05:50
AST 23 U/L (14-36) 08/18/24 05:50
ALT 16 U/L (0-35) 08/18/24 05:50
Alkaline Phosphatase 101 U/L (38-126) 08/18/24 05:50
Most recent labs reviewed.
Micro Results:
08/24/24 12:32 Nasal Screen MRSA (PCR) - Final
Nose MRSA not detected - performed by PCR methodology.
08/24/24 12:32 Blood Culture - Pending
Blood/Venous
08/24/24 11:52 Blood Culture - Pending
Blood/Venous
08/18/24 13:46 Body Fluid Culture - Final
Pleural Fluid No Growth After 72 Hours
Gram Stain - Final
08/17/24 14:10 Influenza Types A & B ([place]) - Final
Nasal Swab Negative for Influenza A & B, NAAT
Negative results must be combined with clinical observations
and patient history.
Nucleic Acid Amplification test (NAAT)performed on the
[employer] platform.
Imaging:
08/23/2024 CXR (portable): There is a stable moderate left pleural effusion with underlying compressive atelectasis at the left base similar to the prior study. There is minimal right pleural effusion with subsegmental atelectasis at the right lung
base less prominent than on the prior study
--- NOTE | 2024-08-25 11:33 | W.PN.HOSP.TC ---
Today's Communication/Plan
-
cont Abx
wean off Norepinephrine -target SBP>90
hold diuretics
cont heparin for now, plan for doac when acute hypotension resolvs
follow CBC
check occult blood, US LE
Assessment / Plan
Assessment / Plan
84yo F with PMHx of urinary retention, HFmrEF, HTN, HLD, metastatic colon CA on palliative Keytruda, Hx of uterine carcenoma s/p JENI and RT, hx of breast CA s/p lumpectomy admitted with SOB, managed for multifaxctorial hypoxic and hypercapnic
respiratory failure 2/2 CHF exacerbqation, pulmonary embolism and aspiration pneumonia. Developed hypotension on 08/24/24 and started on pressors. After detailed conversation with patient - she wants to be full code and continue all needed treatement.
A/P:
#Acute hypoxic hypercapnic respiratory failure
2/2 aspiration pneumonia, CHF exacerbation and pulmonary embolizm
wean off O2 as tolerated
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
#moderate MS
#Ischemic CM
#Non-ischemic troponin elevation
Echo with global hypokinesis
Cardio followed
completed diuresis
not enough fluid for thoracentesiss as attempted on 08/22/24
Cardio follows
cont daily weight, follow Cr
#SHock, most likely hypovolemic 2/2 diuresis vs distributive 2/2 PE
Norepinephrine PRN
target SBP>90
hold diuretics
#Aspiration pneumonia
ID followed
now on cefdinir
#Acute pulmonary embolism
on heparin, start DOAC eventually
No RH strain on Echo
US LE pending
#Chronic anemia
anemia w/u
FOBT stool
follow Hgb
#hypokalemia
2/2 diuresis
replete and follow
#GOC
as per detailed discussion with patient on 08/25/24 - she is AAOx3, can reasoning her choices and wants to be full code and full management to continue as her goal is to improve
#Metastatic colon CA
cont previous palliative mgmt upon d/c
DVT ppx onhep drip
Full code
I have spent at least 59min reviewing chart, test results, communication with cosnultants and direct patient care
Anticipated Discharge: > 48 hours
Subjective/Interval History
-
Date of Service: August 25, 2024
Objective Data
-
Labs:
Laboratory Results
08/25/24
05:03
WBC 12.6 H
Hgb 7.7 L
Hct 25.2 L
Plt Count 263
APTT 96.1 H
Sodium 137
Potassium 4.1 D
Chloride 96 L
Carbon Dioxide 38 H
BUN 42 H
Creatinine 1.0
Glucose 118 H
Calcium 8.3 L
Vital Signs:
Vital Signs
Temp Pulse Resp BP Pulse Ox
98.8 F 85 23 122/47 99
08/25/24 07:17 08/25/24 09:00 08/25/24 09:00 08/25/24 09:00 08/25/24 09:00
I&O
08/24/24 08/25/24 08/26/24
06:59 06:59 06:59
Intake Total 268 / 268 1864 / 1864
Output Total 400 / 400
Balance 268 / 268 1464 / 1464
Review of Systems
-
History Source: Patient and Family
All other systems: Reviewed and negative
Physical Exam
-
General: No Apparent Distress
HEENT: Normocephalic
Respiratory: Clear to Auscultation
Cardiac: Regular Rhythm
GI: Soft, Nontender and Nondistended
Genito-urinary: No Costovertebral Tender
Neuro: Awake, Alert, Oriented and AO x 3
Psych: Calm
--- NOTE | 2024-08-25 11:58 | HOSPNOTE ---
Addendum entered by Francesca Dorantes RN 08/25/24 12:28:
Spoke with patient and family and at this time the patient would like to remain a Full Code and does not wish for hospice. The family understands that most likely the sons will have to step in at some point and make the decisions. I will continue to
follow daily.
Original Note:
Hospice consult will speak with patient and family. More information to follow.
[2024-08-25] MEDS: TYLENOL 650 MG PO (13:45)
--- NOTE | 2024-08-25 19:30 | PTCARENOTE ---
AAOx3 remains on 4L NC (resp rate increased to 30s when on 2L) now 24- sao2 98-99%. Remains on IV Levophed at 5mcg/min- see flowsheet block charted- very drowsy when titrated down to 4 maps were 50s-60 (family also noted change) when increased up
to 6 maps increased >65 and she was back to her normal self. Appetite is good. Purewick used most of the day- just removed for inadequate output and she had small amt of clear gelatinous substance blocking - unable to tell if vaginal or rectal.
No stool otherwise. Leaking urine constantly- bladder scanned at 1800 hrs for 415-448ml- passed on to retail shift supervisor to reassess.
[2024-08-25] MEDS: OMNICEF 300 MG PO (21:11)
[2024-08-25] MEDS: LIPITOR 10 MG PO (21:11)
[2024-08-25] MEDS: NEURONTIN 100 MG PO (21:11)
[2024-08-26] VITALS (42 sets, daily range): BP systolic 93–137; BP diastolic 41–94; PULSE 90; O2SAT 97; BMI 33.6
[2024-08-26] MEDS: HEPARIN 25000 UNITS/250 ML IV ×2 (01:12→18:36)
[2024-08-26 04:34] LABS: % Basophils 0.8 % (0-2); % Eosinophils 3.4 % (0-6); % Immature Granulocytes 1.2 % (0-0.5); % Lymphocytes 10.6 % (20.5-51.1); % Monocytes 8.5 % (1.7-9.3); % Neutrophils 75.5 % (42.2-75.2); Absolute Basophils 0.1 10^3/uL (0-0.2); Absolute Eosinophils 0.3 10^3/uL (0-0.7); Absolute Immature Granulocytes 0.1 10^3/uL (0-0.05); Absolute Monocytes 0.8 10^3/uL (0.1-0.6); Absolute Neutrophils 7.2 10^3/uL (1.4-6.5); Hematocrit 24.3 % (37.0-47.0); Hemoglobin 7.4 g/dL (12.0-16.0); Mean Corp Hgb Conc. 30.5 g/dL (33.0-37.0); Mean Corpuscular Hgb 29.1 pg (27.0-31.0); Mean Corpuscular Volume 95.7 fL (81.0-99.0); Mean Platelet Volume 10.5 fL (7.4-10.4); Nucleated Red Blood Cells % 0 %; Platelet Count 236 10^3/uL (130-400); Red Blood Cell Count 2.54 10^6/uL (4.20-5.40); Red Cell Dist. Width 16.9 % (11.5-14.5); Reticulocyte Count 2.1 % (0.4-2.8); White Blood Cell Count 9.5 10^3/uL (4.8-10.8)
[2024-08-26 04:42] LABS: APTT 77.3 Sec (23.4-35.0)
--- NOTE | 2024-08-26 04:50 | PTCARENOTE ---
received pt from day shift RN. Pt aaox3. 94% on 2L NC. NSR on monitor. Heparin gtt infusing at 1400u/hr. Levo gtt titrated during shift and is now off (see worklist). PW in place draining ben urine. Hygiene completed including CHG cloths. Pt
denies any pain and is resting in bed with call estrada in reach.
[2024-08-26 05:05] LABS: NT-proBNP 7780 pg/ml
[2024-08-26 05:07] LABS: ALT (SGPT) 10 U/L (0-35); AST (SGOT) 15 U/L (14-36); Albumin 2.6 g/dl (3.5-5.0); Alkaline Phosphatase 63 U/L (38-126); Blood Urea Nitrogen 39 mg/dl (7-17); Calcium 8.3 mg/dl (8.4-10.2); Carbon Dioxide 37 mmol/L (22-30); Chloride 97 mmol/L (98-107); Estimated Creatinine Clearance 40 ml/min; Glucose 105 mg/dl (70-99); Iron 56 ug/dl (37-170); LDH 163 U/L (120-246); Potassium 3.7 mmol/L (3.5-5.1); Sodium 137 mmol/L (135-145); Total Bilirubin 0.3 mg/dl (0.2-1.3); Total Protein 4.9 g/dl (6.3-8.2); eGFR 55.55
[2024-08-26 05:16] LABS: Percent Saturation 22 % (20-50); Total Iron Binding Capacity 253 ug/dl (265-497)
[2024-08-26 05:32] LABS: Ferritin 30.7 ng/ml (11.1-264.0)
[2024-08-26 06:03] LABS: Folate 4.7 ng/ml (2.76-20)
[2024-08-26 07:30] LABS: Vitamin B12 > 1000 pg/ml (239-931)
[2024-08-26] MEDS: DESENEX/MITRAZOL/ZEASORB 1 APPLIC TOPICAL ×2 (08:55→21:19)
[2024-08-26] MEDS: CELEXA 10 MG PO (08:55)
[2024-08-26] MEDS: VITAMIN B-12 1000 MCG PO (08:55)
[2024-08-26] MEDS: OMNICEF 300 MG PO ×2 (08:55→21:20)
[2024-08-26] MEDS: OCUVITE SOFTGEL 1 CAP PO ×2 (08:55→21:20)
[2024-08-26] MEDS: MYRBETRIQ EXTENDED RELEASE 25 MG PO (08:55)
[2024-08-26] MEDS: LIDOCAINE 4% PATCH 1 PATCH TOPICAL (08:57)
--- NOTE | 2024-08-26 09:19 | W.PN.PUL3 ---
Today's Communication / Plan
-
Remains on 1L NC, wean to off
Off pressors, monitor for now
Complete PO course of abx
Transition IV heparin to OAC per team
PT eval, likely d/c to SNF
BIPAP encouraged, will arrange OP sleep study/pulm/sleep visit to obtain BIPAP
Discharge planning to SNF if she remains stable
Discussed with daughter at bedside
No further recs from our standpoint, will sign off--please call with questions
Assessment
-
84-year-old never smoking female with a history of uterine cancer/hysterectomy, breast cancer status postlumpectomy and colon cancer (no obvious metastatic disease on last PET scan) on Keytruda last received 1 week COMMERCIAL COUNSEL presented with confusion and
increasing shortness of breath found to be progressively lethargic and retail attendant consulted for hypercapnic/hypoxemic respiratory failure/critical care management 08/20/2024.
Impression:
Shock now on vasopressors - suspect septic vs cardiogenic
Acute HFmrEF exacerbation CHF (TTE from 08/18/2024 shows LVEF: 45-50% with moderate mitral stenosis and moderately elevated PASP: 41 mmHg)
Acute respiratory failure with hypoxia
Acute on chronic respiratory failure with hypercapnia now on nocturnal BiPAP
Recurrent pleural effusion s/p right-sided thoracentesis on 08/18/2024 removing 600 cc of clear yellow transudative fluid
Small multiple PE involving the right upper lobe seen on CTA chest from 08/20/2024
Sepsis due to LLL pneumonia
Leukocytosis
Anemia
JON
Hyperglycemia - resolved
Conditions present prior to admission:
Hypertension
Hyperlipidemia
Recurrent UTIs.
CHF preserved EF
Moderate mitral stenosis
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
Breast cancer status postlumpectomy.
Colon cancer-distal sigmoid diagnosed years ago, resection offered, however, told likely would have permanent colostomy and she elected to try immunotherapy Keytruda instead-recently restarted on Keytruda (last dose 08/13/2024)-reports of metastatic
disease to the lungs, right adrenal gland, spleen, however, last PET scan without obvious mets -managed by [facility]-Dr. Solares
Plan
Respiratory decompensation likely multifactorial including congestive heart failure preserved EF, atelectasis, suspected pneumonia of LLL, mitral stenosis, pulmonary embolism, pleural effusion enlarging and possibly immunotherapy
Improved O2 sat, now on 1L
Home O2 eval recommended
Supplemental oxygen as needed-attempt to wean while keeping SpO2 >90%
Check ambulatory pulse oximetry prior to discharge
Continue with BiPAP with sleep and trend VBG to assure pH + pCO2 remained stable-- 7.41/61, prior 7.
Has refused BIPAP
I discussed this again with her, will need OP set up/testing
Aspiration precautions
Diet as per CHILD CARE ASSOCIATE � s/p VFSS done on 08/22/2024, clear for IDDSI level 5 diet with thin liquids
Nebulizers if needed-currently not bronchospastic-Xopenex as needed
CTA chest 08/20/2024-limited study with beam hardening artifact, suspicion for small volume right upper lobe pulmonary embolism and small bilateral pleural effusions with left lower lobe consolidation with air bronchograms
D-dimer elevated consistent with probable clot/PE
Lower extremity ultrasound 08/21/2024-no evidence for DVT
On hep gtt-transition to PO OAC per team
Persistent small to moderate pleural effusions-recommend thoracentesis-interventional radiology consulted 08/22/2024
- thoracentesis canceled as minimal pleural effusions seen on chest US on 08/22/2024
- Follow-up pleural fluid culture from 08/18/2024 (NGTD)
Continue with antibiotics, currently on Zosyn (started today) s/p Unasyn (started 08/21/2024 - 08/24/2024)
s/p 1 dose of IV vanco today as well --> DC'd given negative MRSA swab
Transition to PO course
Recommend to complete at least 10-14 days assuming that she continues to clinically improve and remains afebrile for 48 hours prior to stopping antibiotics
Repeat imaging in 4 to 6 weeks to follow pneumonia resolution
Cardiology following-correspondence reviewed
Echocardiogram summarized below-noted to moderate mitral stenosis
Diuresis now on hold given hypotension requiring vasopressors
Previously on lasix 40 mg IV twice daily in addition to spironolactone 50 mg twice daily
Diovan also now on hold - resume BP meds once BP improves and off pressors
Monitor renal function, electrolytes, intake/output, lower extremity edema and weight
Replace electrolytes as needed
Now on pressors
Continue to follow hemoglobin
Transfuse as needed to keep Hb>7g/dL
Monitor blood sugar with goal >100 and <180
Insulin supplementation as needed
DVT prophylaxis-heparin gtt
Nutrition if able
PT eval, likely to need SNF
Patient has declined hospice, ongoing discussions
OP FU discussed, information placed in chart
Family Discussions
Sakshi 08/25/24- spoke to family at bedside, regarding code status. She is now on pressors, refused BIPAP, not responding to treatment. They agree that she would not want aggressive measures, she wants to 'live her life her way.' They had wanted to
make her DNR 2 days prior but not changed in chart. We discussed hospice, and they were agreeable to consult.
Dr. Limon reviewed with 2 sons/and/niece-medical orderly on 08/20/2024 and reviewed with 2 sons on 08/21/2024 and 1 son/roeavdos-np-kyw 08/22/2024-told respiratory decompensation multifactorial including CHF, atelectasis, pneumonia, pleural effusion and
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
Family inquiring whether oncology needs to be involved- Dr. Limon told them not at this point
Oncology is at [facility]
History of colon cancer years ago-declined resection as high risk for colostomy and wanted immunotherapy only which she tolerated and now with resurgence of local disease once again wishing immunotherapy-of note PET scan reviewed and no evidence for
distal metastatic disease
Goals of care discussion recommended
Diagnostic data:
Chest x-ray 08/17/2024-moderate bilateral pleural effusions
Chest x-ray 08/19/2024-low lung volumes, moderate bilateral pleural effusions
CXR 08/23/24- There is a stable moderate left pleural effusion with underlying compressive atelectasis at the left base similar to the prior study. There is minimal right pleural effusion with subsegmental atelectasis at the right lung base less
prominent than on the prior study
Thoracentesis 08/18/2024-right sided, -600 mL clear yellow pleural fluid
Chest US 08/22/24- Trace right pleural effusion. Amount of fluid present not sufficient for safe thoracentesis.
Echocardiogram 08/18/2024-EF 45-50%, global hypokinesis worse in the inferior apex, moderate mitral stenosis
-----
Critical care statement: A total of 51 minutes of critical care time was provided for this patient today. This includes management of unstable vital signs, evaluation of the patient at bedside, reviewing the patient's pertinent medical records
including radiographs, microbiology, laboratory evaluations, and discussion with primary team, consultants, pharmacy, nutrition, physical therapy, case management, charge nurse, critical care nursing, and respiratory therapy.
Subjective Data
-
Date of Service:
Date of Service: August 26, 2024
Chief Complaint: Pulmonary Follow Up
Subjective:
Improved in last 24 hours--now off pressors, O2 weaned to 1L
Sitting in chair but very flat/depressed appearing
Daughter at bedside
Objective Data
Data Reviewed
Vital Signs / I&O / Oxygen:
Vital Signs
Temp Pulse Resp BP Pulse Ox
97.7 F 91 30 110/44 88
08/26/24 07:25 08/26/24 06:30 08/26/24 06:30 08/26/24 06:30 08/26/24 05:30
Intake and Output
08/25/24 08/26/24 08/27/24
06:59 06:59 06:59
Intake Total 1864 / 1864 1200 / 1200
Output Total 400 / 400 700 / 700
Balance 1464 / 1464 500 / 500
SaO2 88
Nasal Cannula flow liters per 1
minute
Physical Exam
General: Respiratory Distress (negative), Comfortable, Chills (negative) and Sweats (negative)
HEENT: Normocephalic, Anicteric and Moist Mucous Membranes
Cardiovascular: S1-S2, Regular Rhythm and Peripheral Edema (Trace LE edema)
Respiratory: Clear, Wheeze (negative), Rhonchi (negative) and Non-Labored Respirations
GI: Soft, Non Distended, Non Tender and Normal Bowel Sounds
Neurology: AO x 3, No Motor Deficits, Tremors (negative) and Depressed (flat affect)
Skin: Warm, Dry, Cyanosis (negative) and Jaundice (negative)
Labs/Micro/Reports
Lab Data
08/26/24 03:56
08/26/24 03:56
Laboratory Results
08/26/24
03:56
APTT 77.3 H
Microbiology
08/24/24 12:32 Blood/Venous Blood Culture - Preliminary
No Growth in 24 hours- Final report to follow
08/24/24 11:52 Blood/Venous Blood Culture - Preliminary
No Growth in 24 hours- Final report to follow
08/24/24 12:32 Nose Nasal Screen MRSA (PCR) - Final
MRSA not detected - performed by PCR methodology.
--- NOTE | 2024-08-26 09:55 | W.PN.CD ---
Today's Communication / Plan
-
Resume low-dose valsartan and spironolactone if she remains off pressors tomorrow morning
Restart Lasix 40 mg daily today
Transition to DOAC for PE when primary team thinks it is safe from an anemia perspective
Impression / Plan
-
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
Distributive shock secondary to pneumonia, resolved
-Likely from pneumonia. ID consulted
-She is now off of pressors
-Antibiotics per primary team and infectious disease
Hypercapneic/hypoxic Respiratory failure:
-mixed etiology. treated for HF, PE and PNA
-CTPE : pe's noted, bibasilar consilidation vs atelectasis and pleural effusions
-Pulmonary following
-abx started to cover pna, heparin for PE, diuretics on hold for low BPs
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
-repeat echo 08/18/24 : Normal left ventricular size with mildly reduced systolic function. LVEF 45-50%. Global hypokinesis, worse in the inferior apex.
-etiology suspicious Keytruda?
-She presented with bilateral pleural effusions, hypoxia, orthopnea, and had a proBNP of 13,200
-Recommend resuming low-dose valsartan and spironolactone when she has been pressor free for 24 hours (08/27 AM)
-Case management to lai Entresto
-No SGLT2i as she has had frequent UTIs
-Resume p.o. Lasix 40 mg daily for volume management. She got down to as low as 77 kg this admission but now back up to 81 kg with holding diuresis. Suspect she will need daily diuretics on discharge
PE: on heparin gtt
-pulmonary following
-no right heart strain on echo
-Plan to transition to DOAC when anemia workup is complete
anemia - monitor closely in patient on heparin
Pleural effusions, bilateral -
-Rt s/p Thora -600cc clear fluid (08/18/23)--->chest x-ray read as small to moderate bilateral effusions Patient had chest ultrasound on 08/22/2023 not felt to have enough fluid to safely tap
Abnormal troponin, nonischemic myocardial injury in the setting of acute on chronic heart failure
-Peak troponin 0.138
-Chest pain free
HTN, stable, follow with diuresis
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
-On palliative systemic therapy with Keytruda (Dr. Solares), last dose 08/13/2024
-will need to consider ongoing therapy candidacy with Oncology at op given new CMY
-She deferred surgery as she declined a colostomy
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
Prior breast cancer status postlumpectomy
SUBJECTIVE:
Complaining of back pain. No cardiovascular complaints. No events on telemetry.
DATA:
CTPE: 08/20/24:
Limited study, especially as a result of beam hardening artifact.
Findings at least suspicious for small volume filling defects within right upper lobe pulmonary arterial branches/pulmonary embolism.
Cardiomegaly.
Small bilateral pleural effusions, left greater than right and left lower lobe consolidation with air bronchograms.
TTE 08/18/24 CONCLUSIONS
Normal left ventricular size with mildly reduced systolic function. LVEF 45-
50%.
Global hypokinesis, worse in the inferior apex.
Normal right ventricular size and function.
Moderate mitral stenosis. Peak/mean gradients across the mitral valve are 14/6
mmHg.
Mild tricuspid regurgitation with mildly elevated pulmonary pressures (41
mmHg).
Pleural effusion present.
No prior study available for comparison.
TTE, 05/26/2024 ([facility]):
EF 50-55%.
Mild cLVH. Mildly thickened aortic valve leaflets.
Mild mitral valve stenosis, mitral valve area 1.6 cm�, peak gradient 12 with mean of 7.
Physical Exam
Vital Signs/Labs
Vital Signs
Temp Pulse Resp BP Pulse Ox
97.7 F 91 30 110/44 88
08/26/24 07:25 08/26/24 06:30 08/26/24 06:30 08/26/24 06:30 08/26/24 05:30
08/25/24 08/26/24 08/27/24
06:59 06:59 06:59
Actual Weight 80.4 kg 80.7 kg
08/26/24 03:56
08/26/24 03:56
APTT 77.3 Sec (23.4-35.0) H 08/26/24 03:56
Magnesium 1.9 mg/dl (1.6-2.3) 08/21/24 11:28
08/17/24 08/26/24
14:16 03:56
Vyt-H-Uacrjyrpdlp Pept [id number]
Physical Exam
Constitutional: No acute distress and Comfortable
Cardiovascular: Rhythm & rate is regular, Pedal edema is absent, S1S2 is normal and Murmur/rub/gallop absent
Respiratory: Respiratory effort normal
Data Reviewed
-
Date of Service: August 26, 2024
Medical Decision Making: Reviewed Test Results, Independent Historian Assessment, Test Interpretation and Review of Case with other Provider
EKG: Tracing Personally Visualized and interpreted
Echo: Report Reviewed by me
X-Ray/CT/US/MRI/NUC/PET: Image Personally Visualized and interpreted
Labs: Labs Reviewed by me
--- NOTE | 2024-08-26 11:29 | PTCARENOTE ---
Rec'd pt this AM. RN observed some vaginal bleeding, small amount, some clots. Large clear discharge from vagina. Updated Dr. Oliver. Contract Coordinator consult ordered. Pt reports discharge is normal for her but the bleeding is new. Pt is Max assist OOB with
walker, very weak. Mes given in applesauce. vital signs stable. Pt continues to not want hospice and to remain full code.
--- NOTE | 2024-08-26 11:46 | W.PN.HOSP.TC ---
Today's Communication/Plan
-
follow CBC
cont hep
TELEPHONE LINEMAN consult
CT abd/pelvis
restarted Lasix by Card
restart rest of BP meds in AM if stable
Assessment / Plan
Assessment / Plan
84yo F with PMHx of urinary retention, HFmrEF, HTN, HLD, metastatic colon CA on palliative Keytruda, Hx of uterine carcenoma s/p JENI and RT, hx of breast CA s/p lumpectomy admitted with SOB, managed for multifaxctorial hypoxic and hypercapnic
respiratory failure 2/2 CHF exacerbqation, pulmonary embolism and aspiration pneumonia. Developed hypotension on 08/24/24 and started on pressors. After detailed conversation with patient - she wants to be full code and continue all needed treatment.
Found vaginal bleeding
A/P:
#Chronic anemia
#Vaginal bleeding
minimal bleeding - monitor while on heparin
CT abd/pelvis
LIFE SKILLS WORKER consult
anemia w/u
FOBT stool
follow Hgb
#Acute hypoxic hypercapnic respiratory failure
2/2 aspiration pneumonia, CHF exacerbation and pulmonary embolizm
wean off O2 as tolerated
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
#moderate MS
#Ischemic CM
#Non-ischemic troponin elevation
Echo with global hypokinesis
Cardio followed
completed diuresis
s/p thoracentesis on 08/18/24 - transudate, neg for malignant cells, neg Cx
not enough fluid for thoracentesis as attempted on 08/22/24
Cardio follows
cont daily weight, follow Cr
#Shock, most likely hypovolemic 2/2 diuresis vs distributive 2/2 PE
resolved
#Aspiration pneumonia
ID followed
now on cefdinir
#Acute pulmonary embolism
on heparin, start DOAC eventually
No RH strain on Echo
US LE pending
#hypokalemia
2/2 diuresis
replete and follow
#GOC
as per detailed discussion with patient on 08/25/24 - she is AAOx3, can reasoning her choices and wants to be full code and full management to continue as her goal is to improve
#Metastatic colon CA
cont previous palliative mgmt upon d/c
DVT ppx onhep drip
Full code
I have spent at least 59min reviewing chart, test results, communication with cosnultants and direct patient care
Anticipated Discharge: > 48 hours
Subjective/Interval History
-
Date of Service: August 26, 2024
Objective Data
-
Labs:
Laboratory Results
08/26/24
03:56
WBC 9.5
Hgb 7.4 L
Hct 24.3 L
Plt Count 236
APTT 77.3 H
Sodium 137
Potassium 3.7
Chloride 97 L
Carbon Dioxide 37 H
BUN 39 H
Creatinine 1.0
Glucose 105 H
Calcium 8.3 L
Total Bilirubin 0.3
AST 15
ALT 10
Alkaline Phosphatase 63
Vital Signs:
Vital Signs
Temp Pulse Resp BP Pulse Ox
97.7 F 89 25 96/42 94
08/26/24 07:25 08/26/24 10:00 08/26/24 10:00 08/26/24 10:00 08/26/24 11:20
I&O
08/25/24 08/26/24 08/27/24
06:59 06:59 06:59
Intake Total 1864 / 1864 1200 / 1200
Output Total 400 / 400 700 / 700
Balance 1464 / 1464 500 / 500
Review of Systems
-
History Source: Patient
All other systems: Reviewed and negative
Physical Exam
-
General: No Apparent Distress
Respiratory: Clear to Auscultation
GI: Soft, Nontender and Nondistended
Musculoskeletal: No Clubbing, No Cyanosis and No Edema
Neuro: Awake, Alert, Oriented and AO x 3
Psych: Calm
--- NOTE | 2024-08-26 12:28 | HOSPNOTE ---
Spoke with patient and family today about hospice and code status. The patient still wants to remain a full code and does not wish for hospice services and wishes to go to rehab. CM updated. We will continue to follow if needed.
--- NOTE | 2024-08-26 13:08 | CM ---
CM reviewed chart and pt with Hospice/Francesca
Pt and family declined hospice
Bedside meeting with pt and family to review SNF choices
PAC provided- they will continue to consider choices and research ratings
PASRR completed and referral sent to [facility] per their request
CM consult for med pricing
Call with [facility] [phone]
Entresto 24/26 mg BID
$47- 30 days retail
$126- 100 days [facility] mail order
TT/Dr Mitchell with pricing
CM to follow up with pt and family on add'l SNF choices
Discharge Disposition- SNF
--- NOTE | 2024-08-26 13:27 | W.PN.ID1 ---
Date of Service
Date of Service: August 26, 2024
Today's Communication
Continue cefdinir. See below�
Assessment / Plan
Hypotension
- Now off pressor
Suspected prior aspiration event
Leukocytosis
Anemia
PE
Stage IV colon cancer; on Keytruda
Hx uterine cancer (papillary)
Hx HTN
Dyslipidemia
CHF
Moderate mitral stenosis
Recommendations:
CXR reviewed, and not clear to what extent pneumonia may be playing a part here. Patient has little in the way of symptomatology for respiratory infection at present.
Suspect prior leukocytosis was multifactorial. Now resolved
Continue with oral cefdinir (d#6 of abx therapy) for an additional 4 days then discontinue.
Follow white count and temperature curve.
����������������������������������������������������������
Chief Complaint
-: Other (Hypotension)
Subjective / Review of Systems
Review of Systems: No Fever and No Chills
Vital Signs / Physical Exam
Vital Signs
Vital Signs
Temp Pulse Resp BP Pulse Ox
97.7 F 89 25 96/42 94
08/26/24 07:25 08/26/24 10:00 08/26/24 10:00 08/26/24 10:00 08/26/24 11:20
Physical Exam
Constitutional: Comfortable, Chronically Ill and Non-toxic
Eyes: Sclera Anicteric
Cardiovascular: Regular Rate and S1/S2; Negative S3/S4
Pulmonary: Coarse and Non Labored
Gastrointestinal: Soft, Non Tender and Non Distended
Extremities: Edema; Negative Cyanosis or Erythema
Skin: Warm and Dry; Negative Rash or Jaundice
Neurological: Awake and Alert
Psychological: Calm
Objective Data
Lab Data
Lab Results
08/26/24 03:56
08/26/24 03:56
APTT 77.3 Sec (23.4-35.0) H 08/26/24 03:56
Estimated Creat Clear 40 ml/min 08/26/24 03:56
Total Bilirubin 0.3 mg/dl (0.2-1.3) 08/26/24 03:56
AST 15 U/L (14-36) 08/26/24 03:56
ALT 10 U/L (0-35) 08/26/24 03:56
Alkaline Phosphatase 63 U/L (38-126) 08/26/24 03:56
Most recent labs reviewed.
CT Scan: Image Reviewed and Report Reviewed
Micro Results:
08/24/24 12:32 Blood Culture - Preliminary
Blood/Venous No Growth in 48 hours- Final report to follow
08/24/24 11:52 Blood Culture - Preliminary
Blood/Venous No Growth in 48 hours- Final report to follow
08/24/24 12:32 Nasal Screen MRSA (PCR) - Final
Nose MRSA not detected - performed by PCR methodology.
08/18/24 13:46 Body Fluid Culture - Final
Pleural Fluid No Growth After 72 Hours
Gram Stain - Final
08/17/24 14:10 Influenza Types A & B ([place]) - Final
Nasal Swab Negative for Influenza A & B, NAAT
Negative results must be combined with clinical observations
and patient history.
Nucleic Acid Amplification test (NAAT)performed on the
Stratus5 platform.
Imaging:
08/26/2024 CT abdomen/pelvis with IV contrast: Abnormal soft tissue and fluid density predominantly within the soft tissues of the left true pelvis in this patient with known colon carcinoma and uterine carcinoma, apparently status post hysterectomy.
Crescentic area of decreased attenuation seen predominantly anterior to the distal sigmoid colon and rectum could represent necrotic tumor (colonic versus gynecologic), cannot exclude contiguous with the cervix. Abscess would be less likely but
cannot be excluded. Cannot exclude accompanying partial left-sided obstructive uropathy with mild dilatation and delayed left renal excretion. Prominent gallbladder containing at least one gallstone. Bilateral lung lower lobe opacification likely
representing atelectasis, left greater than right with small bilateral pleural effusions. Left lower lobe pneumonia cannot be excluded.
08/23/2024 CXR (portable): There is a stable moderate left pleural effusion with underlying compressive atelectasis at the left base similar to the prior study. There is minimal right pleural effusion with subsegmental atelectasis at the right lung
base less prominent than on the prior study
--- NOTE | 2024-08-26 13:58 | PTOTSP ---
ST Follow-Up
Pt currently presents with clinical signs of fairly functional oropharyngeal parameters that are safe for consumption of soft bite sized solids and thin liquids with meds whole in puree. Pt is at an increased risk for aspiration given her increased
respiratory demand/desaturation during mastication of solids.
Recommendations:
- Upgrade solids to SOFT BITE SIZED SOLIDS (Level 6), continue thin liquids, meds whole in puree (crush PRN).
- Continue with aspiration precautions: Pt must be fully awake/alert for all PO intake; HOB fully upright for PO intake; small bites/sips; take breaks between bites to breathe/resaturate; slow intake rate.
- ELECTRONIC BENCH TECHNICIAN to f/u re: diet tolerance and to trial further diet upgrades.
[2024-08-26] MEDS: FERRLECIT 110 MG IV (14:18)
--- NOTE | 2024-08-26 14:21 | W.PN.UPDATE ---
Update Note
Progress Note Update
significant tumor findings on CT abd/pelvis. Most liekly chronic blood loss 2/2 tumor bleeding. Will discuss with family and patient what was prognosis but assusme that with palliative Ketruda - unlikely will be a candidate for any intervention.
Anticoagulation risk will have to be discussed as patient and family should accept possible major bleeding event with significant colon involvement with extension to cervix with dilation of L renal pelvis system
--- NOTE | 2024-08-26 16:06 | PTCARENOTE ---
Rec'd pt from dayshift RN. Pt very weak. Max 2-3 assist OOB. After pt sat OOB for a few hours, she was so tired and weak that getting back to bed was even more difficult. RN observed small blood clots and large, mucous-like discharge from vaginal
area. Updated MD. Home Stereo Equipment Installer consult and CT scan abdomen and pelvis ordered. vital signs stable today, BP normotensive. Support provided.
--- NOTE | 2024-08-26 19:38 | W.PN.OBG.DWH ---
Today's Communication / Plan
-
reviewed with pt and son, Dr. Oliver
LM with Dr. Velázquez [facility]
t/c bx of cuff vs observe sxs
Assessment/Plan
-
vaginal bleeding
colon cancer: metastatic, stage 4, rectovaginal fistula per earlier history
h/o endometrial cancer St [address] JENI BSO XRT 1997
Subjective Data
-
vaginal bleeding per nursing
pt seen and examined
consult dictated
Objective Data
-
Laboratory Results
lkszly82/21/25 03:56
08/26/24 03:56
Vital Signs
Temp Pulse Resp BP Pulse Ox
97.9 F 96 31 117/57 99
08/26/24 11:30 08/26/24 18:00 08/26/24 18:00 08/26/24 18:00 08/26/24 18:39
speculum exam: minimal bleeding from cuff at left, nodularities visualized
vaginal exam, nodular tissue palpated at cuff
rectal exam: abundant clear mucus expelled after exam. no nodular mucosa palpated
[2024-08-26] MEDS: NEURONTIN 100 MG PO (21:20)
[2024-08-26 22:16] LABS: Hematocrit 24.5 % (37.0-47.0); Hemoglobin 7.7 g/dL (12.0-16.0)
--- NOTE | 2024-08-26 22:40 | PTCARENOTE ---
Assumed care of patient at change of shift. Pt ox3 and sleeping in bed, easily arousable. Heparin gtt infusing at 1400 u/hr. No c/o pain at this time. hygiene and CHG wipes completed. Pt is incontinent of urine with PW in place draining ben urine.
Pt has blood tinged discharge and passed several blood clots. Notified Hepvioleta, WRIST LINER and received Rx for H&H. This am Hgb 7.4 and Hct 24.3. Labs recently resulted and they are 7.7 and 24.5. Pt resting in bed with call estrada in reach.
[2024-08-27] VITALS (26 sets, daily range): BP systolic 98–150; BP diastolic 43–87; PULSE 2–88; BMI 33.6
[2024-08-27] MEDS: TYLENOL 650 MG PO (00:47)
--- NOTE | 2024-08-27 02:26 | DOWNTIME ---
There was a [employer] Client Nanotechnology Engineering Technician Downtime on 08/27/2024 from 0100 to 08/27/2023 at 0205 . Downtime documentation of patient's care, including medication administrations, has been reconciled in the electronic record per guidelines. Refer to the
patient's paper chart under the miscellaneous tab to see printed paper medication records and downtime forms.
[2024-08-27 05:50] LABS: % Basophils 0.6 % (0-2); % Eosinophils 3.1 % (0-6); % Lymphocytes 10.6 % (20.5-51.1); % Monocytes 8.1 % (1.7-9.3); % Neutrophils 76.6 % (42.2-75.2); Absolute Basophils 0.1 10^3/uL (0-0.2); Absolute Eosinophils 0.3 10^3/uL (0-0.7); Absolute Immature Granulocytes 0.1 10^3/uL (0-0.05); Absolute Lymphocytes 1.1 10^3/uL (1.2-3.4); Absolute Monocytes 0.8 10^3/uL (0.1-0.6); Absolute Neutrophils 7.8 10^3/uL (1.4-6.5); Hematocrit 24.8 % (37.0-47.0); Hemoglobin 7.7 g/dL (12.0-16.0); Mean Corpuscular Hgb 29.4 pg (27.0-31.0); Mean Corpuscular Volume 94.7 fL (81.0-99.0); Mean Platelet Volume 10.5 fL (7.4-10.4); Nucleated Red Blood Cells % 0 %; Platelet Count 243 10^3/uL (130-400); Red Blood Cell Count 2.62 10^6/uL (4.20-5.40); Red Cell Dist. Width 17.1 % (11.5-14.5); White Blood Cell Count 10.2 10^3/uL (4.8-10.8)
[2024-08-27 06:10] LABS: APTT 151.8 Sec (23.4-35.0)
[2024-08-27 06:31] LABS: ALT (SGPT) 10 U/L (0-35); AST (SGOT) 17 U/L (14-36); Albumin 2.6 g/dl (3.5-5.0); Alkaline Phosphatase 65 U/L (38-126); Blood Urea Nitrogen 35 mg/dl (7-17); Calcium 8.5 mg/dl (8.4-10.2); Carbon Dioxide 36 mmol/L (22-30); Chloride 98 mmol/L (98-107); Estimated Creatinine Clearance 45 ml/min; Glucose 85 mg/dl (70-99); Potassium 3.6 mmol/L (3.5-5.1); Sodium 138 mmol/L (135-145); Total Bilirubin 0.3 mg/dl (0.2-1.3); Total Protein 4.9 g/dl (6.3-8.2); eGFR > 60.00
--- NOTE | 2024-08-27 07:17 | RESPNOTE ---
patient de-satted to 87% on RA after coming off bipap. placed on 2L n/c with improvement.
--- NOTE | 2024-08-27 08:04 | W.PN.CD ---
Today's Communication / Plan
-
resume Valsartan pm
resume aldactone now at 1/2 dose (25)
DOAC when ok with medicine
d/c planning
Impression / Plan
-
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
Primary lens silverer: Dr. 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
Distributive shock secondary to pneumonia, resolved
-Likely from pneumonia. ID consulted
-She is now off of pressors
-Antibiotics per primary team and infectious disease
Hypercapneic/hypoxic Respiratory failure:
-mixed etiology. treated for HF, PE and PNA
-CTPE : pe's noted, bibasilar consilidation vs atelectasis and pleural effusions
-Pulmonary following
-abx started to cover pna, heparin for PE, diuretics on hold for low BPs
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
-repeat echo 08/18/24 : Normal left ventricular size with mildly reduced systolic function. LVEF 45-50%. Global hypokinesis, worse in the inferior apex.
-etiology suspicious Keytruda?
-She presented with bilateral pleural effusions, hypoxia, orthopnea, and had a proBNP of 13,200
-Recommend resuming low-dose valsartan and spironolactone when she has been pressor free for 24 hours (08/27 AM)
-will start back spironolactone at 25 she had been on 50 mg.
-Case management to lai Entresto
-No SGLT2i as she has had frequent UTIs
-Resume p.o. Lasix 40 mg daily for volume management. She got down to as low as 77 kg this admission but now back up to 81 kg with holding diuresis. Suspect she will need daily diuretics on discharge
PE: on heparin gtt
-pulmonary following
-no right heart strain on echo
-Plan to transition to DOAC when anemia workup is complete
anemia - monitor closely in patient on heparin
Pleural effusions, bilateral -
-Rt s/p Thora -600cc clear fluid (08/18/23)--->chest x-ray read as small to moderate bilateral effusions Patient had chest ultrasound on 08/22/2023 not felt to have enough fluid to safely tap
Abnormal troponin, nonischemic myocardial injury in the setting of acute on chronic heart failure
-Peak troponin 0.138
-Chest pain free
HTN, stable, follow with diuresis
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
-On palliative systemic therapy with Keytruda (Dr. Solares), last dose 08/13/2024
-will need to consider ongoing therapy candidacy with Oncology at op given new CMY
-She deferred surgery as she declined a colostomy
Vaginal bleeding:
-new order clerk evauated, cbc stable
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
Prior breast cancer status postlumpectomy
SUBJECTIVE:
Wants to get out of the bed. No cardiovascular complaints. No events on telemetry.
DATA:
CTPE: 08/20/24:
Limited study, especially as a result of beam hardening artifact.
Findings at least suspicious for small volume filling defects within right upper lobe pulmonary arterial branches/pulmonary embolism.
Cardiomegaly.
Small bilateral pleural effusions, left greater than right and left lower lobe consolidation with air bronchograms.
TTE 08/18/24 CONCLUSIONS
Normal left ventricular size with mildly reduced systolic function. LVEF 45-
50%.
Global hypokinesis, worse in the inferior apex.
Normal right ventricular size and function.
Moderate mitral stenosis. Peak/mean gradients across the mitral valve are 14/6
mmHg.
Mild tricuspid regurgitation with mildly elevated pulmonary pressures (41
mmHg).
Pleural effusion present.
No prior study available for comparison.
TTE, 05/26/2024 ([facility]):
EF 50-55%.
Mild cLVH. Mildly thickened aortic valve leaflets.
Mild mitral valve stenosis, mitral valve area 1.6 cm�, peak gradient 12 with mean of 7.
Physical Exam
Vital Signs/Labs
Vital Signs
Temp Pulse Resp BP Pulse Ox
96.7 F L 84 24 127/66 92
08/27/24 03:00 08/27/24 07:00 08/27/24 07:00 08/27/24 07:00 08/27/24 07:00
08/26/24 08/27/24 08/28/24
06:59 06:59 06:59
Actual Weight 80.7 kg 80.5 kg
08/27/24 05:24
08/27/24 05:24
APTT 151.8 Sec (23.4-35.0) H* 08/27/24 05:24
Magnesium 1.9 mg/dl (1.6-2.3) 08/21/24 11:28
08/17/24 08/26/24
14:16 03:56
Ysh-L-Trhuvdfudau Pept [id number]
Physical Exam
Constitutional: No acute distress
Cardiovascular: Rhythm & rate is regular, Pedal edema is absent, JVD pressure is normal and Systolic murmur absent
Respiratory: Respiratory effort normal, Wheeze Absent, Crackles Absent and Rhonchi Absent
Neuro/Psych: AO x 3
Data Reviewed
-
Date of Service: August 27, 2024
Medical Decision Making: Review of Case with other Provider (Dr Oliver, resume medications)
EKG: Other (tele sinus)
[2024-08-27] MEDS: OCUVITE SOFTGEL 1 CAP PO ×2 (09:02→22:38)
[2024-08-27] MEDS: CELEXA 10 MG PO (09:02)
[2024-08-27] MEDS: LASIX 40 MG PO (09:03)
[2024-08-27] MEDS: MYRBETRIQ EXTENDED RELEASE 25 MG PO (09:03)
[2024-08-27] MEDS: VITAMIN B-12 1000 MCG PO (09:03)
[2024-08-27] MEDS: LIDOCAINE 4% PATCH 1 PATCH TOPICAL (09:03)
[2024-08-27] MEDS: OMNICEF 300 MG PO ×2 (09:03→22:38)
[2024-08-27] MEDS: DESENEX/MITRAZOL/ZEASORB 1 APPLIC TOPICAL ×2 (09:04→22:38)
[2024-08-27] MEDS: ALDACTONE 25 MG PO (09:10)
--- NOTE | 2024-08-27 10:49 | W.PN.HOSP.TC ---
Today's Communication/Plan
-
Eliquis
PT/OT
start D/C afterwards
Assessment / Plan
Assessment / Plan
84yo F with PMHx of urinary retention, HFmrEF, HTN, HLD, metastatic colon CA on palliative Keytruda, Hx of uterine carcenoma s/p JENI and RT, hx of breast CA s/p lumpectomy admitted with SOB, managed for multifaxctorial hypoxic and hypercapnic
respiratory failure 2/2 CHF exacerbation, pulmonary embolism and aspiration pneumonia. Developed hypotension on 08/24/24 and started on pressors. After detailed conversation with patient - she wants to be full code and continue all needed treatment.
Significant findings of Crescentic area of decreased attenuation seen predominantly anterior to the distal sigmoid colon and rectum could represent necrotic tumor. Found scant vaginal bleeding. Discussed further with [facility] and family and patient.
hospice and palliative approach appropriate. Scant vaginal bleeding most likely 2/2 tumor extension. Also discussed with [facility]. Patient has appoitment on 09/03/24 and if still in rehab - can be seen later - [facility] will be in touch with family. Switched
to DOAC.
A/P:
#Chronic anemia
#Vaginal bleeding
as per MIRROR PAINTER note: Vaginal bleeding, scant. Physical exam significant for
nodularities palpated in the vaginal cuff. Discussed with [facility] Dl Olivier - since Hgb stable patient can be planned for palliative RT by [facility].
Hgb stable
started Eliquis
TESTER OPERATOR consult
anemia w/u
FOBT stool
follow Hgb
#Metastatic colon CA
#Hx of uterine CA s/p JENI BSO
Palliative keytruda
as agreed with [facility] - most likely patient approaching hospice
cont previous palliative mgmt upon d/c
CT: Crescentic area of decreased attenuation seen predominantly anterior to the distal sigmoid colon and rectum could represent necrotic tumor
#Acute hypoxic hypercapnic respiratory failure
2/2 aspiration pneumonia LLL, CHF exacerbation and pulmonary embolism
wean off O2 as tolerated
#Mild L calyx dilatation and delayed left renal excretion
Cr stable
palliative RT appropriate
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
#moderate MS
#Ischemic CM
#Non-ischemic troponin elevation
Echo with global hypokinesis
Cardio followed
completed diuresis
s/p thoracentesis on 08/18/24 - transudate, neg for malignant cells, neg Cx
not enough fluid for thoracentesis as attempted on 08/22/24
Cardio follows
cont daily weight, follow Cr
#Shock, most likely hypovolemic 2/2 diuresis vs distributive 2/2 PE
resolved
#Aspiration pneumonia
ID followed
now on cefdinir
#Acute pulmonary embolism
on heparin, start DOAC eventually
No RH strain on Echo
US LE pending
#hypokalemia
2/2 diuresis
replete and follow
#Asymptomatic cholelithiasis
monitor
#GOC
as per detailed discussion with patient on 08/25/24 - she is AAOx3, can reasoning her choices and wants to be full code and full management to continue as her goal is to improve
#Metastatic colon CA
cont previous palliative mgmt upon d/c
DVT ppx onhep drip
Full code
I have spent at least 59min reviewing chart, test results, communication with cosnultants and direct patient care
Anticipated Discharge: 24 - 48 hours
Subjective/Interval History
-
Date of Service: August 27, 2024
Objective Data
-
Labs:
Laboratory Results
08/27/24 08/27/24
05:24 13:20
WBC 10.2
Hgb 7.7 L
Hct 24.8 L
Plt Count 243
APTT 151.8 H* Pending
Sodium 138
Potassium 3.6
Chloride 98
Carbon Dioxide 36 H
BUN 35 H
Creatinine 0.9
Glucose 85
Calcium 8.5
Total Bilirubin 0.3
AST 17
ALT 10
Alkaline Phosphatase 65
Vital Signs:
Vital Signs
Temp Pulse Resp BP Pulse Ox
97.7 F 84 24 127/66 92
08/27/24 07:25 08/27/24 07:00 08/27/24 07:00 08/27/24 07:00 08/27/24 07:00
I&O
08/26/24 08/27/24 08/28/24
06:59 06:59 06:59
Intake Total 1200 / 1200 648 / 648
Output Total 700 / 700 600 / 600
Balance 500 / 500 48 / 48
Review of Systems
-
History Source: Patient
All other systems: Reviewed and negative
Physical Exam
-
General: No Apparent Distress
Neuro: Awake, Alert, Oriented and AO x 3
Psych: Calm
--- NOTE | 2024-08-27 10:59 | PTCARENOTE ---
"Assumed care of patient at beginning of this shift from previous RN with heparin on hold d/t last PTT. Restarted during change of shift rounds at a decreased dose of 1100 units/hr. Patient able to take meds whole in applesauce without difficulty. "Khushi"Benito ordered eliquis and to d/c heparin infusion. See worklist for full assessment. Patient's son and [id number] at bedside and spoke with CM about d/c plans."
[2024-08-27] MEDS: ELIQUIS 10 MG PO ×2 (11:49→22:39)
--- NOTE | 2024-08-27 12:05 | W.PN.ID1 ---
Date of Service
Date of Service: August 27, 2024
Today's Communication
Continue current course of cefdinir.
Assessment / Plan
Hypotension
- Now off pressor
Suspected prior aspiration event
Leukocytosis
Anemia
PE
Stage IV colon cancer; on Keytruda
Hx uterine cancer (papillary)
Hx HTN
Dyslipidemia
CHF
Moderate mitral stenosis
Recommendations:
CXR reviewed, and not clear to what extent pneumonia may be playing a part here. Patient has little in the way of symptomatology for respiratory infection at present.
Suspect prior leukocytosis was multifactorial. Now resolved
Continue with oral cefdinir (d#7 of abx therapy) for an additional 3 days then discontinue.
Follow white count and temperature curve.
Question of new/recurrent CA. Family will be discussing further with physicians at [facility] regarding prognosis and goals of care.
����������������������������������������������������������
Chief Complaint
-: Other (Hypotension)
Subjective / Review of Systems
Review of Systems: No Fever and No Chills
Vital Signs / Physical Exam
Vital Signs
Vital Signs
Temp Pulse Resp BP Pulse Ox
97.7 F 84 24 127/66 92
08/27/24 07:25 08/27/24 07:00 08/27/24 07:00 08/27/24 07:00 08/27/24 07:00
Physical Exam
Constitutional: Comfortable, Chronically Ill and Non-toxic
Eyes: Sclera Anicteric
Cardiovascular: Regular Rate and S1/S2; Negative S3/S4
Pulmonary: Coarse and Non Labored
Gastrointestinal: Soft, Non Tender and Non Distended
Extremities: Edema; Negative Cyanosis or Erythema
Skin: Warm and Dry; Negative Rash or Jaundice
Neurological: Awake and Alert
Psychological: Calm
Objective Data
Lab Data
Lab Results
08/27/24 05:24
08/27/24 05:24
APTT 151.8 Sec (23.4-35.0) H* 08/27/24 05:24
Estimated Creat Clear 45 ml/min 08/27/24 05:24
Total Bilirubin 0.3 mg/dl (0.2-1.3) 08/27/24 05:24
AST 17 U/L (14-36) 08/27/24 05:24
ALT 10 U/L (0-35) 08/27/24 05:24
Alkaline Phosphatase 65 U/L (38-126) 08/27/24 05:24
Most recent labs reviewed.
Micro Results:
08/24/24 11:52 Blood Culture - Preliminary
Blood/Venous No Growth in 72 hours- Final report to follow
08/24/24 12:32 Blood Culture - Preliminary
Blood/Venous No Growth in 48 hours- Final report to follow
08/24/24 12:32 Nasal Screen MRSA (PCR) - Final
Nose MRSA not detected - performed by PCR methodology.
08/18/24 13:46 Body Fluid Culture - Final
Pleural Fluid No Growth After 72 Hours
Gram Stain - Final
08/17/24 14:10 Influenza Types A & B ([place]) - Final
Nasal Swab Negative for Influenza A & B, NAAT
Negative results must be combined with clinical observations
and patient history.
Nucleic Acid Amplification test (NAAT)performed on the
[employer] platform.
Imaging:
08/26/2024 CT abdomen/pelvis with IV contrast: Abnormal soft tissue and fluid density predominantly within the soft tissues of the left true pelvis in this patient with known colon carcinoma and uterine carcinoma, apparently status post hysterectomy.
Crescentic area of decreased attenuation seen predominantly anterior to the distal sigmoid colon and rectum could represent necrotic tumor (colonic versus gynecologic), cannot exclude contiguous with the cervix. Abscess would be less likely but
cannot be excluded. Cannot exclude accompanying partial left-sided obstructive uropathy with mild dilatation and delayed left renal excretion. Prominent gallbladder containing at least one gallstone. Bilateral lung lower lobe opacification likely
representing atelectasis, left greater than right with small bilateral pleural effusions. Left lower lobe pneumonia cannot be excluded.
08/23/2024 CXR (portable): There is a stable moderate left pleural effusion with underlying compressive atelectasis at the left base similar to the prior study. There is minimal right pleural effusion with subsegmental atelectasis at the right lung
base less prominent than on the prior study
[2024-08-27] MEDS: FERRLECIT 110 MG IV (13:28)
--- NOTE | 2024-08-27 13:55 | HOSPNOTE ---
Spoke with family again and now they are choosing hospice services at a SNF. CM sent referrals to multiple facilities. If the facility is within our territory DH will sign patient onto hospice services. Will await placement. Will continue to follow.
--- NOTE | 2024-08-27 14:53 | W.PN.UPDATE ---
Update Note
Progress Note Update
Patient and family agreeable with changing code status to DNR/DNI, family preference is comfort at this time, so no additional intervention that could cause pain, discomfort are desired
[2024-08-27] MEDS: MORPHINE SULFATE 2 MG IV ×2 (15:38→22:53)
--- NOTE | 2024-08-27 15:45 | CM ---
CM met with pt and family bedside
After family meeting with Hospice/Francesca today, pt and family have elected plan for hospice at SNF
[facility] SNF is 1st choice- referral sent day prior and no response in [facility]
VM left with SNF admissions- awaiting call back
Add'l SNF referrals per family request- pending
Family aware that room and board is private pay
Funds intact and son/Tucker will manage financial arrangements/apps
Discharge Disposition- SNF with hospice
[2024-08-27] MEDS: DIOVAN 80 MG PO (18:19)
[2024-08-27] MEDS: ANESTHETIC LOZENGE 1 LOZENGE PO (22:38)
[2024-08-27] MEDS: NEURONTIN 100 MG PO (22:38)
[2024-08-27] MEDS: LIPITOR 10 MG PO (22:39)
--- NOTE | 2024-08-27 23:49 | PTCARENOTE ---
Received pt from day shift RN. Pt aaox3. NSR on monitor. 96% on 2L. Pt is incontinent of urine with PW in place draining yellow urine. Pt has blood tinged discharge. Pt c/o 02/12 pain throughout her whole body and requested something for the pain,
PRN morphine given (see MAR). Pt resting in bed with call estrada in reach.
[2024-08-28] VITALS (21 sets, daily range): BP systolic 90–131; BP diastolic 37–66; PULSE 2–89; O2SAT 98; BMI 33.5
[2024-08-28 04:39] LABS: Hematocrit 24.4 % (37.0-47.0); Hemoglobin 7.5 g/dL (12.0-16.0); Mean Corp Hgb Conc. 30.7 g/dL (33.0-37.0); Mean Corpuscular Hgb 29.3 pg (27.0-31.0); Mean Corpuscular Volume 95.3 fL (81.0-99.0); Mean Platelet Volume 10.4 fL (7.4-10.4); Platelet Count 266 10^3/uL (130-400); Red Blood Cell Count 2.56 10^6/uL (4.20-5.40); Red Cell Dist. Width 17.2 % (11.5-14.5); White Blood Cell Count 10.1 10^3/uL (4.8-10.8)
[2024-08-28 05:03] LABS: Blood Urea Nitrogen 32 mg/dl (7-17); Calcium 8.4 mg/dl (8.4-10.2); Carbon Dioxide 37 mmol/L (22-30); Chloride 98 mmol/L (98-107); Estimated Creatinine Clearance 40 ml/min; Glucose 82 mg/dl (70-99); Potassium 3.5 mmol/L (3.5-5.1); Sodium 138 mmol/L (135-145); eGFR 55.55
--- NOTE | 2024-08-28 08:25 | W.PN.CD ---
Today's Communication / Plan
-
continue current cardiac medications
Patient will follow up with Dr Peñaloza, I reached out to him to update him on her case
No further cardiac recommendations, I will sign off.
Impression / Plan
-
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
Distributive shock secondary to pneumonia, resolved
-Likely from pneumonia. ID consulted
-She is now off of pressors
-Antibiotics per primary team and infectious disease
Hypercapneic/hypoxic Respiratory failure:
-mixed etiology. treated for HF, PE and PNA
-CTPE : pe's noted, bibasilar consilidation vs atelectasis and pleural effusions
-Pulmonary following
-abx started to cover pna, heparin for PE, diuretics on hold for low BPs
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
-repeat echo 08/18/24 : Normal left ventricular size with mildly reduced systolic function. LVEF 45-50%. Global hypokinesis, worse in the inferior apex.
-etiology suspicious Keytruda?
-She presented with bilateral pleural effusions, hypoxia, orthopnea, and had a proBNP of 13,200
-Recommend resuming low-dose valsartan and spironolactone when she has been pressor free for 24 hours (08/27 AM)
-will start back spironolactone at 25 she had been on 50 mg. Will continue at this dose.
-Case management to lai Entresto
-No SGLT2i as she has had frequent UTIs
-Resume p.o. Lasix 40 mg daily for volume management. She got down to as low as 77 kg this admission but now back up to 81 kg with holding diuresis. Continue daily furosemide 40m Daily
PE: on heparin gtt
-pulmonary following
-no right heart strain on echo
-transitioned to DOAC when anemia workup is complete
anemia - monitor closely in patient on heparin
Pleural effusions, bilateral -
-Rt s/p Thora -600cc clear fluid (08/18/23)--->chest x-ray read as small to moderate bilateral effusions Patient had chest ultrasound on 08/22/2023 not felt to have enough fluid to safely tap
Abnormal troponin, nonischemic myocardial injury in the setting of acute on chronic heart failure
-Peak troponin 0.138
-Chest pain free
HTN, stable, follow with diuresis
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
-On palliative systemic therapy with Keytruda (Dr. Solares), last dose 08/13/2024
-will need to consider ongoing therapy candidacy with Oncology at op given new CMY
-She deferred surgery as she declined a colostomy
Vaginal bleeding:
-heart nurse evauated, cbc stable
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
Prior breast cancer status postlumpectomy
SUBJECTIVE:
A bit of a sore throat last night, but now better. No cardiovascular complaints. No events on telemetry.
DATA:
CTPE: 08/20/24:
Limited study, especially as a result of beam hardening artifact.
Findings at least suspicious for small volume filling defects within right upper lobe pulmonary arterial branches/pulmonary embolism.
Cardiomegaly.
Small bilateral pleural effusions, left greater than right and left lower lobe consolidation with air bronchograms.
TTE 08/18/24 CONCLUSIONS
Normal left ventricular size with mildly reduced systolic function. LVEF 45-
50%.
Global hypokinesis, worse in the inferior apex.
Normal right ventricular size and function.
Moderate mitral stenosis. Peak/mean gradients across the mitral valve are 14/6
mmHg.
Mild tricuspid regurgitation with mildly elevated pulmonary pressures (41
mmHg).
Pleural effusion present.
No prior study available for comparison.
TTE, 05/26/2024 ([facility]):
EF 50-55%.
Mild cLVH. Mildly thickened aortic valve leaflets.
Mild mitral valve stenosis, mitral valve area 1.6 cm�, peak gradient 12 with mean of 7.
Physical Exam
Vital Signs/Labs
Vital Signs
Temp Pulse Resp BP Pulse Ox
97.0 F 86 21 113/48 99
08/28/24 03:00 08/28/24 06:00 08/28/24 06:00 08/28/24 05:00 08/28/24 06:00
08/27/24 08/28/24 08/29/24
06:59 06:59 06:59
Actual Weight 80.5 kg 80.4 kg
08/28/24 04:03
08/28/24 04:03
APTT Cancelled 08/27/24 13:20
Magnesium 1.9 mg/dl (1.6-2.3) 08/21/24 11:28
08/17/24 08/26/24
14:16 03:56
Sgx-F-Lgmzqpcypbe Pept [id number]
Physical Exam
Constitutional: No acute distress
Cardiovascular: Rhythm & rate is regular, Pedal edema is absent, JVD pressure is normal, Systolic murmur absent and Diastolic murmur absent
Respiratory: Respiratory effort normal, Lungs clear to auscul., Wheeze Absent, Crackles Absent and Rhonchi Absent
GI: Soft
Neuro/Psych: AO x 3
Data Reviewed
-
Date of Service: August 28, 2024
Medical Decision Making: Review of Case with other Provider (Dr Oliver I will sign off and give info to op window unit air conditioning mechanic for follow up)
EKG: Other (Tele sinus)
--- NOTE | 2024-08-28 09:07 | W.PN.HOSP.TC ---
Today's Communication/Plan
-
pending CM to arrange facility with hospice
Assessment / Plan
Assessment / Plan
84yo F with PMHx of urinary retention, HFmrEF, HTN, HLD, metastatic colon CA on palliative Keytruda, Hx of uterine carcenoma s/p JENI and RT, hx of breast CA s/p lumpectomy admitted with SOB, managed for multifaxctorial hypoxic and hypercapnic
respiratory failure 2/2 CHF exacerbation, pulmonary embolism and aspiration pneumonia. Developed hypotension on 08/24/24 and started on pressors. After detailed conversation with patient - she wants to be full code and continue all needed treatment.
Significant findings of Crescentic area of decreased attenuation seen predominantly anterior to the distal sigmoid colon and rectum could represent necrotic tumor. Found scant vaginal bleeding. Discussed further with [facility] and family and patient.
hospice and palliative approach appropriate. Scant vaginal bleeding most likely 2/2 tumor extension. Also discussed with [facility]. Patient has appoitment on 09/03/24 and if still in rehab - can be seen later - [facility] will be in touch with family. Switched
to DOAC. Patient and family agreeable with changing code status to DNR/DNI, family preference is comfort at this time. Pending discharge to hospice facility - CM working on it
A/P:
#Chronic anemia
#Vaginal bleeding
as per CUSTOMER PROGRAM MANAGER note: Vaginal bleeding, scant. Physical exam significant for
nodularities palpated in the vaginal cuff. Discussed with [facility] Dl Olivier - since Hgb stable patient can be planned for palliative RT by [facility].
Hgb stable
started Eliquis
NET DEVELOPMENT MANAGER consult
anemia w/u
FOBT stool
follow Hgb
#Metastatic colon CA
#Hx of uterine CA s/p JENI BSO
Palliative keytruda
as agreed with [facility] - most likely patient approaching hospice
cont previous palliative mgmt upon d/c
CT: Crescentic area of decreased attenuation seen predominantly anterior to the distal sigmoid colon and rectum could represent necrotic tumor
#Acute hypoxic hypercapnic respiratory failure
2/2 aspiration pneumonia LLL, CHF exacerbation and pulmonary embolism
wean off O2 as tolerated
#Mild L calyx dilatation and delayed left renal excretion
Cr stable
palliative RT appropriate
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
#moderate MS
#Ischemic CM
#Non-ischemic troponin elevation
Echo with global hypokinesis
Cardio followed
completed diuresis
s/p thoracentesis on 08/18/24 - transudate, neg for malignant cells, neg Cx
not enough fluid for thoracentesis as attempted on 08/22/24
Cardio follows
cont daily weight, follow Cr
#Shock, most likely hypovolemic 2/2 diuresis vs distributive 2/2 PE
resolved
#Aspiration pneumonia
ID followed
now on cefdinir
#Acute pulmonary embolism
on heparin, start DOAC eventually
No RH strain on Echo
US LE pending
#hypokalemia
2/2 diuresis
replete and follow
#Asymptomatic cholelithiasis
monitor
#GOC
as per detailed discussion with patient on 08/25/24 - she is AAOx3, can reasoning her choices and wants to be full code and full management to continue as her goal is to improve
#Metastatic colon CA
cont previous palliative mgmt upon d/c
DVT ppx onhep drip
Full code
I have spent at least 39min reviewing chart, test results, communication with consultants and direct patient care
Anticipated Discharge: 24 - 48 hours
Subjective/Interval History
-
Date of Service: August 28, 2024
Objective Data
-
Labs:
Laboratory Results
08/28/24
04:03
WBC 10.1
Hgb 7.5 L
Hct 24.4 L
Plt Count 266
Sodium 138
Potassium 3.5
Chloride 98
Carbon Dioxide 37 H
BUN 32 H
Creatinine 1.0
Glucose 82
Calcium 8.4
Vital Signs:
Vital Signs
Temp Pulse Resp BP Pulse Ox
97.0 F 86 21 113/48 99
08/28/24 03:00 08/28/24 06:00 08/28/24 06:00 08/28/24 05:00 08/28/24 06:00
I&O
08/27/24 08/28/24 08/29/24
06:59 06:59 06:59
Intake Total 648 / 648 110 / 110
Output Total 600 / 600 900 / 900
Balance 48 / 48 -790 / -790
Review of Systems
-
History Source: Patient
Physical Exam
-
General: No Apparent Distress
Respiratory: Clear to Auscultation
Cardiac: Regular Rhythm
Neuro: Awake, Alert, Oriented and AO x 3
Psych: Calm
[2024-08-28] MEDS: MYRBETRIQ EXTENDED RELEASE 25 MG PO (09:19)
[2024-08-28] MEDS: ALDACTONE 25 MG PO (09:20)
[2024-08-28] MEDS: ELIQUIS 10 MG PO ×2 (09:20→20:08)
[2024-08-28] MEDS: VITAMIN B-12 1000 MCG PO (09:20)
[2024-08-28] MEDS: LASIX 40 MG PO (09:20)
[2024-08-28] MEDS: CELEXA 10 MG PO (09:20)
[2024-08-28] MEDS: OMNICEF 300 MG PO (09:20)
[2024-08-28] MEDS: LIDOCAINE 4% PATCH 1 PATCH TOPICAL (09:20)
[2024-08-28] MEDS: OCUVITE SOFTGEL 1 CAP PO ×2 (09:20→20:08)
[2024-08-28] MEDS: DESENEX/MITRAZOL/ZEASORB 1 APPLIC TOPICAL ×2 (09:21→20:08)
--- NOTE | 2024-08-28 10:46 | PTCARENOTE ---
Assumed care of patient at beginning of this shift from previous RN. Patient with 4L n/c in use; able to wean to 3L n/c with POx 97%. OOB to chair with PT: heavy 2 person assist. See worklist for full assessment and vital signs. Family currently in
room.
--- NOTE | 2024-08-28 13:08 | CM ---
Addendum entered by Reta Head 08/28/24 15:27:
CM spoke with Jennifer at [facility] and faxed clinicals to her at [phone]. Jennifer to reach out to patient son to review application.
Addendum entered by Reta Head 08/28/24 13:37:
CM spoke with [facility] admissions and they will reach out to patient family about financial application.
Original Note:
CM spoke with patient son's and left messages for admissions at [facility]; Vinnie [phone]/Fannie [phone]/Jennifer [phone]. Per senior front end developer admissions will return after 1:30pm. CM also calling to other facilities and updated
physician. CM will continue to follow for discharge planning needs.
Plan; SNF/hospice
--- NOTE | 2024-08-28 13:12 | W.DCSUMMARY ---
Addendum entered and electronically signed by Lenard Oliver MD 08/30/24 11:27:
DIscharge date 08/30/24
Addendum entered and electronically signed by Lenard Oliver MD 08/29/24 12:55:
Spironolactone and Valsartan dose decreased to avoid hypotension
Cefdinir stopped as per ID
Original Note:
Discharge Summary
Discharge Data
Date of Admission: 08/17/24
Date of Discharge: 08/28/24
-
Pending Results: No
Hospital Course
84yo F with PMHx of urinary retention, HFmrEF, HTN, HLD, metastatic colon CA on palliative Keytruda, Hx of uterine carcenoma s/p JENI and RT, hx of breast CA s/p lumpectomy admitted with SOB, managed for multifaxctorial hypoxic and hypercapnic
respiratory failure 2/2 CHF exacerbation, pulmonary embolism and aspiration pneumonia. Developed hypotension on 08/24/24 and started on pressors. After detailed conversation with patient - she wants to be full code and continue all needed treatment.
Significant findings of Crescentic area of decreased attenuation seen predominantly anterior to the distal sigmoid colon and rectum could represent necrotic tumor. Found scant vaginal bleeding. Discussed further with [facility] and family and patient.
hospice and palliative approach appropriate. Scant vaginal bleeding most likely 2/2 tumor extension. Also discussed with [facility]. Patient has appoitment on 09/03/24 and if still in rehab - can be seen later - [facility] will be in touch with family. Switched
to DOAC. Patient and family agreeable with changing code status to DNR/DNI, family preference is comfort at this time. Pending discharge to hospice facility. I have spent at least 39min reviewing chart, test results, communication with consultants
and direct patient care
PAtient was managed for:
#Chronic anemia
#DELMAR
#Vaginal bleeding
#Metastatic colon CA
#Hx of uterine CA s/p JENI BSO
#Acute hypoxic hypercapnic respiratory failure
#Mild L calyx dilatation and delayed left renal excretion
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
#moderate MS
#Ischemic CM
#Non-ischemic troponin elevation
#Shock, most likely hypovolemic 2/2 diuresis vs distributive 2/2 PE
#Aspiration pneumonia
#Acute pulmonary embolism
#hypokalemia
#Asymptomatic cholelithiasis
#GOC
Discharge Plan
-
Patient Disposition: Usp/SNF
Discharge Diagnosis/Procedures: Pulmonary embolism
Diet: Regular
Activity: As tolerated
Instructions: *PCP/Other Loop Machine Operator Heart Failure Instructions
Referrals:
Rachel Cantor DO [Active] - in one to two weeks
(Needs PSG w/ titration, set up [facility]
PFTs w/ visit)
Zac Steward DO [Family Provider] -
Prescriptions:
New
sacubitril-valsartan [Entresto] 24-26 mg tablet
1 tab PO BID Qty: 60 0RF
spironolactone 25 mg Tablet
25 mg PO DAILY Qty: 30 0RF
Eliquis DVT-PE Treat 30D Start 5 mg (74 tabs) tablets,dose pack
See Rx Instructions .ROUTE .COMPLEX Qty: 74 0RF
Rx Instructions:
take 10mg BID for 5 days, then 5mg BID until stopped by the doctor
furosemide 40 mg Tablet
40 mg PO DAILY Qty: 30 0RF
tramadol 50 mg Tablet
25 mg PO Q6HPRN PRN (Reason: moderate-severe pain) Qty: 6 0RF
cefdinir 300 mg Capsule
300 mg PO Q12 Qty: 4 0RF
Continued
acetaminophen 325 mg Tablet
650 mg PO DAILYPRN PRN (Reason: mild pain)
citalopram 10 mg Tablet
10 mg PO DAILY
cyanocobalamin (vitamin B-12) 1,000 mcg Tablet
1,000 mcg PO DAILY
valsartan 80 mg Tablet
80 mg PO QPM
gabapentin 100 mg Capsule
100 mg PO HS
biotin 5 mg Tablet
5 mg PO DAILY
PreserVision AREDS 4,296 mcg-226 mg-90 mg Capsule
1 cap PO BID
pitavastatin calcium [Livalo] 2 mg Tablet
2 mg PO Q48H
Patient Comments:
as per Zac Steward, patient should be taking this once per week, but she states that she is taking it every other day
mirabegron [Myrbetriq] 25 mg Tablet Extended Release 24 Hr
25 mg PO DAILY
Discontinued
spironolactone 50 mg Tablet
50 mg PO BID
Discharge Date and Time
Print Language: INDONESIAN
--- NOTE | 2024-08-28 13:23 | W.PN.ID1 ---
Date of Service
Date of Service: August 28, 2024
Today's Communication
Discontinue antibiotics. Sign off.
Assessment / Plan
Hypotension
- Now off pressor
Suspected prior aspiration event
Leukocytosis
Anemia
PE
Stage IV colon cancer; on Keytruda
Hx uterine cancer (papillary)
Hx HTN
Dyslipidemia
CHF
Moderate mitral stenosis
Recommendations:
CXR reviewed, and not clear to what extent pneumonia may be playing a part here. Patient has little in the way of symptomatology for respiratory infection at present.
Suspect prior leukocytosis was multifactorial. Now resolved
Discussed with kareen, and patient will be transitioning to hospice.
No role for further antibiotics at this time.
Discontinue further cefdinir.
Nothing further to add from a Infectious Diseases standpoint.
Will see again at your request.
����������������������������������������������������������
Chief Complaint
-: Other (Hypotension)
Subjective / Review of Systems
Review of Systems: No Fever
Vital Signs / Physical Exam
Vital Signs
Vital Signs
Temp Pulse Resp BP Pulse Ox
97.7 F 87 26 94/44 97
08/28/24 11:35 08/28/24 12:00 08/28/24 12:00 08/28/24 12:00 08/28/24 10:12
Physical Exam
Constitutional: Comfortable, Chronically Ill and Non-toxic
Eyes: Sclera Anicteric
Pulmonary: Non Labored
Neurological: Awake and Alert
Psychological: Calm
Objective Data
Lab Data
Lab Results
08/28/24 04:03
08/28/24 04:03
APTT Cancelled 08/27/24 13:20
Estimated Creat Clear 40 ml/min 08/28/24 04:03
Total Bilirubin 0.3 mg/dl (0.2-1.3) 08/27/24 05:24
AST 17 U/L (14-36) 08/27/24 05:24
ALT 10 U/L (0-35) 08/27/24 05:24
Alkaline Phosphatase 65 U/L (38-126) 08/27/24 05:24
Most recent labs reviewed.
Micro Results:
08/24/24 12:32 Blood Culture - Preliminary
Blood/Venous No Growth in 4 days- Final report to follow
08/24/24 11:52 Blood Culture - Preliminary
Blood/Venous No Growth in 4 days- Final report to follow
08/24/24 12:32 Nasal Screen MRSA (PCR) - Final
Nose MRSA not detected - performed by PCR methodology.
08/18/24 13:46 Body Fluid Culture - Final
Pleural Fluid No Growth After 72 Hours
Gram Stain - Final
08/17/24 14:10 Influenza Types A & B ([place]) - Final
Nasal Swab Negative for Influenza A & B, NAAT
Negative results must be combined with clinical observations
and patient history.
Nucleic Acid Amplification test (NAAT)performed on the
[employer] platform.
Imaging:
08/26/2024 CT abdomen/pelvis with IV contrast: Abnormal soft tissue and fluid density predominantly within the soft tissues of the left true pelvis in this patient with known colon carcinoma and uterine carcinoma, apparently status post hysterectomy.
Crescentic area of decreased attenuation seen predominantly anterior to the distal sigmoid colon and rectum could represent necrotic tumor (colonic versus gynecologic), cannot exclude contiguous with the cervix. Abscess would be less likely but
cannot be excluded. Cannot exclude accompanying partial left-sided obstructive uropathy with mild dilatation and delayed left renal excretion. Prominent gallbladder containing at least one gallstone. Bilateral lung lower lobe opacification likely
representing atelectasis, left greater than right with small bilateral pleural effusions. Left lower lobe pneumonia cannot be excluded.
08/23/2024 CXR (portable): There is a stable moderate left pleural effusion with underlying compressive atelectasis at the left base similar to the prior study. There is minimal right pleural effusion with subsegmental atelectasis at the right lung
base less prominent than on the prior study
[2024-08-28] MEDS: FERRLECIT 110 MG IV (14:19)
[2024-08-28] MEDS: DIOVAN PO (17:59)
--- NOTE | 2024-08-28 18:00 | PTCARENOTE ---
Patient with soft BPs today: currently 114/46, prior 98/45 and 101/52. Due for Diovan 80mg. TT sent to Dr Oliver with no return text. TT sent to Dr Lion who is floor coverage; instructed to hold at this time.
--- NOTE | 2024-08-28 21:04 | PTCARENOTE ---
Report called to RN to transfer pt to room 409-2. All belongings are with pt.
[2024-08-28] MEDS: MORPHINE SULFATE 2 MG IV (21:41)
[2024-08-28] MEDS: NEURONTIN 100 MG PO (21:43)
[2024-08-28] MEDS: FLUSH (NSS) 2 FLUSH IV (21:44)
[2024-08-29] MEDS: ULTRAM 25 MG PO (03:05)
[2024-08-29 06:00] LABS: Hematocrit 25.5 % (37.0-47.0); Hemoglobin 7.8 g/dL (12.0-16.0); Mean Corp Hgb Conc. 30.6 g/dL (33.0-37.0); Mean Corpuscular Volume 94.8 fL (81.0-99.0); Mean Platelet Volume 10.3 fL (7.4-10.4); Platelet Count 276 10^3/uL (130-400); Red Blood Cell Count 2.69 10^6/uL (4.20-5.40); Red Cell Dist. Width 17.2 % (11.5-14.5)
[2024-08-29 06:30] LABS: Blood Urea Nitrogen 32 mg/dl (7-17); Calcium 8.4 mg/dl (8.4-10.2); Carbon Dioxide 36 mmol/L (22-30); Chloride 97 mmol/L (98-107); Estimated Creatinine Clearance 40 ml/min; Glucose 85 mg/dl (70-99); Potassium 3.4 mmol/L (3.5-5.1); Sodium 137 mmol/L (135-145); eGFR 55.55
[2024-08-29 08:00] VITALS: BP 109/50
[2024-08-29] MEDS: OCUVITE SOFTGEL 1 CAP PO ×2 (08:37→20:35)
[2024-08-29] MEDS: MYRBETRIQ EXTENDED RELEASE 25 MG PO (08:37)
[2024-08-29] MEDS: KCL 40 MEQ PO (08:37)
[2024-08-29] MEDS: LASIX 40 MG PO (08:37)
[2024-08-29] MEDS: CELEXA 10 MG PO (08:37)
[2024-08-29] MEDS: ALDACTONE 12.5 MG PO (08:38)
[2024-08-29] MEDS: ELIQUIS 10 MG PO ×2 (08:38→20:35)
[2024-08-29] MEDS: VITAMIN B-12 1000 MCG PO (08:38)
[2024-08-29] MEDS: LIDOCAINE 4% PATCH 1 PATCH TOPICAL (08:39)
[2024-08-29] MEDS: DESENEX/MITRAZOL/ZEASORB 1 APPLIC TOPICAL ×2 (08:40→21:27)
--- NOTE | 2024-08-29 11:54 | CM ---
Addendum entered by Sloane Bhakta 08/29/24 12:09:
correction plan skilled rehab with palliative care and transition to hospice.
Spoke with sons and patient bedside.
Per son he and spouse toured [facility] and are interedted.
Original Note:
Left message for admissions at [facility], await tcb.
Clinicals faxed yesterday.
Plan is for hospice, will need to see which hospice comes into the facility if bed available.
--- NOTE | 2024-08-29 12:05 | W.PN.HOSP.TC ---
Today's Communication/Plan
-
medcially stable for d/c with hospice. CM informed
Assessment / Plan
Assessment / Plan
84yo F with PMHx of urinary retention, HFmrEF, HTN, HLD, metastatic colon CA on palliative Keytruda, Hx of uterine carcenoma s/p JENI and RT, hx of breast CA s/p lumpectomy admitted with SOB, managed for multifaxctorial hypoxic and hypercapnic
respiratory failure 2/2 CHF exacerbation, pulmonary embolism and aspiration pneumonia. Developed hypotension on 08/24/24 and started on pressors. After detailed conversation with patient - she wants to be full code and continue all needed treatment.
Significant findings of Crescentic area of decreased attenuation seen predominantly anterior to the distal sigmoid colon and rectum could represent necrotic tumor. Found scant vaginal bleeding. Discussed further with [facility] and family and patient.
hospice and palliative approach appropriate. Scant vaginal bleeding most likely 2/2 tumor extension. Also discussed with [facility]. Patient has appoitment on 09/03/24 and if still in rehab - can be seen later - [facility] will be in touch with family. Switched
to DOAC. Patient and family agreeable with changing code status to DNR/DNI, family preference is comfort at this time. Pending discharge to hospice facility - CM working on it
A/P:
#Chronic anemia
#Vaginal bleeding
as per BAG WASHER note: Vaginal bleeding, scant. Physical exam significant for
nodularities palpated in the vaginal cuff. Discussed with [facility] Dl Olivier - since Hgb stable patient can be planned for palliative RT by [facility].
Hgb stable
started Eliquis
FUNDRAISING DIRECTOR consult
anemia w/u
FOBT stool
follow Hgb
#Metastatic colon CA
#Hx of uterine CA s/p JENI BSO
Palliative keytruda
as agreed with [facility] - most likely patient approaching hospice
cont previous palliative mgmt upon d/c
CT: Crescentic area of decreased attenuation seen predominantly anterior to the distal sigmoid colon and rectum could represent necrotic tumor
#Acute hypoxic hypercapnic respiratory failure
2/2 aspiration pneumonia LLL, CHF exacerbation and pulmonary embolism
wean off O2 as tolerated
#Mild L calyx dilatation and delayed left renal excretion
Cr stable
palliative RT appropriate
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
#moderate MS
#Ischemic CM
#Non-ischemic troponin elevation
Echo with global hypokinesis
Cardio followed
completed diuresis
s/p thoracentesis on 08/18/24 - transudate, neg for malignant cells, neg Cx
not enough fluid for thoracentesis as attempted on 08/22/24
Cardio follows
cont daily weight, follow Cr
#Shock, most likely hypovolemic 2/2 diuresis vs distributive 2/2 PE
resolved
#Aspiration pneumonia
ID followed
now on cefdinir
#Acute pulmonary embolism
on heparin, start DOAC eventually
No RH strain on Echo
US LE pending
#hypokalemia
2/2 diuresis
replete and follow
#Asymptomatic cholelithiasis
monitor
#GOC
as per detailed discussion with patient on 08/25/24 - she is AAOx3, can reasoning her choices and wants to be full code and full management to continue as her goal is to improve
#Metastatic colon CA
cont previous palliative mgmt upon d/c
DVT ppx onhep drip
Full code
I have spent at least 39min reviewing chart, test results, communication with consultants and direct patient care
Anticipated Discharge: Within 24 hours
Subjective/Interval History
-
Date of Service: August 29, 2024
Objective Data
-
Labs:
Laboratory Results
08/29/24
05:43
WBC 10.0
Hgb 7.8 L
Hct 25.5 L
Plt Count 276
Sodium 137
Potassium 3.4 L
Chloride 97 L
Carbon Dioxide 36 H
BUN 32 H
Creatinine 1.0
Glucose 85
Calcium 8.4
Vital Signs:
Vital Signs
Temp Pulse Resp BP Pulse Ox
97.5 F 96 20 109/50 98
08/29/24 08:00 08/29/24 08:00 08/29/24 08:00 08/29/24 08:00 08/29/24 08:00
I&O
08/28/24 08/29/24 08/30/24
06:59 06:59 06:59
Intake Total 110 / 110 240 / 480 240 / 240
Output Total 900 / 900 300 / 300
Balance -790 / -790 240 / 180 -60 / -60
Review of Systems
-
History Source: Patient
All other systems: Reviewed and negative
Physical Exam
-
General: No Apparent Distress
HEENT: Normocephalic
Respiratory: Clear to Auscultation
Cardiac: Regular Rhythm
Neuro: Awake, Alert, Oriented and AO x 3
Psych: Calm
--- NOTE | 2024-08-29 12:17 | CM ---
Addendum entered by Sloane Bhakta 08/29/24 15:45:
Spoke with Julian, patient accepted for skilled rehab at [facility]- no auth required
Please call Julian or text Julian in am with transport time and Covid results at [phone].
careport updated.
[facility]
report# [phone] ask for rehab nurse (page)
fax# [phone]
Ambulance transport forms on chart.
Addendum entered by Sloane Bhakta 08/29/24 14:58:
TC back to Julian, still reviewing. julian requested a Covid test today for possible admission tomorrow. she will call me back by the end of the day. TT to MD.
Addendum entered by Sloane Bhakta 08/29/24 12:45:
Spoke with Julian at [facility], they are reviewing for skilled rehab with transition to Hospice. Financials have been accepted. Per Julian they may not be able to take until Sunday. This CM requested she please reconsider and see if they can
accept today, Julian will get back to me.
Patient will require ambulance transport. Family here at bedside and aware of above.
Julian pnone# [phone]
Original Note:
Left VM for [facility]. Await TCB.
Spoke with son Elie, he and his spouse just toured and visited [facility]. Per son, his mother has been accepted there for skilled rehab with transition to hospice.
TC to [facility], left VM for TCB to determine if patient has been accepted and for bed availability.
Plan: skilled rehab once bed available.
[2024-08-29] MEDS: FERRLECIT 110 MG IV (14:42)
[2024-08-29 15:58] VITALS: BP 128/98; PULSE 91; O2SAT 97
[2024-08-29 16:23] VITALS: BP 108/52
[2024-08-29 17:19] LABS: COVID-19 Antigen Negative (Negative)
[2024-08-29] MEDS: DIOVAN 40 MG PO (18:08)
[2024-08-29] MEDS: NEURONTIN 100 MG PO (21:21)
[2024-08-29] MEDS: LIPITOR 10 MG PO (21:21)
[2024-08-29 23:55] VITALS: BP 127/53
[2024-08-30 06:00] VITALS: BMI 33.9
[2024-08-30 06:01] LABS: Hematocrit 24.9 % (37.0-47.0); Hemoglobin 7.5 g/dL (12.0-16.0); Mean Corp Hgb Conc. 30.1 g/dL (33.0-37.0); Mean Corpuscular Hgb 28.6 pg (27.0-31.0); Mean Platelet Volume 9.9 fL (7.4-10.4); Platelet Count 287 10^3/uL (130-400); Red Blood Cell Count 2.62 10^6/uL (4.20-5.40); Red Cell Dist. Width 17.2 % (11.5-14.5)
[2024-08-30 07:25] VITALS: BP 100/47
[2024-08-30] MEDS: LIDOCAINE 4% PATCH 1 PATCH TOPICAL (09:30)
[2024-08-30] MEDS: OCUVITE SOFTGEL 1 CAP PO (09:31)
[2024-08-30] MEDS: ALDACTONE 12.5 MG PO (09:31)
[2024-08-30] MEDS: VITAMIN B-12 1000 MCG PO (09:31)
[2024-08-30] MEDS: MYRBETRIQ EXTENDED RELEASE 25 MG PO (09:31)
[2024-08-30] MEDS: ELIQUIS 10 MG PO (09:31)
[2024-08-30] MEDS: CELEXA 10 MG PO (09:32)
[2024-08-30] MEDS: LASIX 40 MG PO (09:32)
[2024-08-30] MEDS: DESENEX/MITRAZOL/ZEASORB 1 APPLIC TOPICAL (09:33)
--- NOTE | 2024-08-30 11:26 | W.PN.HOSP.TC ---
Today's Communication/Plan
-
dc
Assessment / Plan
Assessment / Plan
84yo F with PMHx of urinary retention, HFmrEF, HTN, HLD, metastatic colon CA on palliative Keytruda, Hx of uterine carcenoma s/p JENI and RT, hx of breast CA s/p lumpectomy admitted with SOB, managed for multifaxctorial hypoxic and hypercapnic
respiratory failure 2/2 CHF exacerbation, pulmonary embolism and aspiration pneumonia. Developed hypotension on 08/24/24 and started on pressors. After detailed conversation with patient - she wants to be full code and continue all needed treatment.
Significant findings of Crescentic area of decreased attenuation seen predominantly anterior to the distal sigmoid colon and rectum could represent necrotic tumor. Found scant vaginal bleeding. Discussed further with [facility] and family and patient.
hospice and palliative approach appropriate. Scant vaginal bleeding most likely 2/2 tumor extension. Also discussed with [facility]. Patient has appoitment on 09/03/24 and if still in rehab - can be seen later - [facility] will be in touch with family. Switched
to DOAC. Patient and family agreeable with changing code status to DNR/DNI, family preference is comfort at this time. Pending discharge to hospice facility - working on it
A/P:
#Chronic anemia
#Vaginal bleeding
as per AERONAUTICAL DESIGN ENGINEER note: Vaginal bleeding, scant. Physical exam significant for
nodularities palpated in the vaginal cuff. Discussed with [facility] Dl Olivier - since Hgb stable patient can be planned for palliative RT by [facility].
Hgb stable
started Eliquis
PSYCHIATRIC NP consult
anemia w/u
FOBT stool
follow Hgb
#Metastatic colon CA
#Hx of uterine CA s/p JENI BSO
Palliative keytruda
as agreed with [facility] - most likely patient approaching hospice
cont previous palliative mgmt upon d/c
CT: Crescentic area of decreased attenuation seen predominantly anterior to the distal sigmoid colon and rectum could represent necrotic tumor
#Acute hypoxic hypercapnic respiratory failure
2/2 aspiration pneumonia LLL, CHF exacerbation and pulmonary embolism
wean off O2 as tolerated
#Mild L calyx dilatation and delayed left renal excretion
Cr stable
palliative RT appropriate
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
#moderate MS
#Ischemic CM
#Non-ischemic troponin elevation
Echo with global hypokinesis
Cardio followed
completed diuresis
s/p thoracentesis on 08/18/24 - transudate, neg for malignant cells, neg Cx
not enough fluid for thoracentesis as attempted on 08/22/24
Cardio follows
cont daily weight, follow Cr
#Shock, most likely hypovolemic 2/2 diuresis vs distributive 2/2 PE
resolved
#Aspiration pneumonia
ID followed
now on cefdinir
#Acute pulmonary embolism
on heparin, start DOAC eventually
No RH strain on Echo
US LE pending
#hypokalemia
2/2 diuresis
replete and follow
#Asymptomatic cholelithiasis
monitor
#GOC
as per detailed discussion with patient on 08/25/24 - she is AAOx3, can reasoning her choices and wants to be full code and full management to continue as her goal is to improve
#Metastatic colon CA
cont previous palliative mgmt upon d/c
DVT ppx onhep drip
Full code
I have spent at least 39min reviewing chart, test results, communication with consultants and direct patient care
Anticipated Discharge: Today
Subjective/Interval History
-
Date of Service: August 30, 2024
Objective Data
-
Labs:
Laboratory Results
08/30/24
05:42
WBC 10.0
Hgb 7.5 L
Hct 24.9 L
Plt Count 287
Vital Signs:
Vital Signs
Temp Pulse Resp BP Pulse Ox
97.4 F 93 16 100/47 3
08/30/24 07:25 08/30/24 09:32 08/30/24 07:25 08/30/24 09:32 08/30/24 09:29
I&O
08/29/24 08/30/24 08/31/24
06:59 06:59 06:59
Intake Total 240 / 480 240 / 240 240 / 240
Output Total 700 / 700
Balance 240 / 180 -460 / -460 240 / 240
Review of Systems
-
History Source: Patient
All other systems: Reviewed and negative
Physical Exam
-
General: No Apparent Distress
Musculoskeletal: No Clubbing, No Cyanosis and No Edema
Neuro: Awake, Alert, Oriented and AO x 3
Psych: Calm
--- NOTE | 2024-08-30 11:41 | CM ---
CM following re: discharge planning.
Reviewed pt's chart, met with [pt.
Discharge order noted.
CM spoke to [facility] nursing public relations account supervisor and she confirmed they do have a bed available and pt is accepted for admission today.
arranged ambulance transport BLS. wood crew supervisor time 3:30 p.m.
[facility] nursing report# [phone] ask for rehab nurse (page)
Discharge instructions with COVID test fax# [phone]
D/C plan: [facility]
[2024-08-30] MEDS: FERRLECIT 110 MG IV (13:42)
[2024-08-30] MEDS: FLUSH (NSS) 1 FLUSH IV ×2 (13:42→14:31)
[2024-08-30 15:30] VITALS: BP 110/49
== END 2024-08-30 15:59 | DRG 871 ==
LOC: 4 EAST ACU 15:58
PROVIDERS: Hospitalist; Internal Medicine Cardiovascular Disease; Internal Medicine Critical Care Medicine; Nurse Practitioner Family; Nurse Practitioner Gerontology; Physician Assistant; Radiology Diagnostic Radiology; Registered Nurse; ADMITTING PHYSICIAN Hospitalist; ATTENDING PHYSICIAN Internal Medicine; CONSULT PHYSICIAN Internal Medicine Infectious Disease; CONSULT PHYSICIAN Obstetrics & Gynecology; CONSULT PHYSICIAN Student in an Organized Health Care Education/Training Program; EMERGENCY PHYSICIAN Emergency Medicine; FAMILY PHYSICIAN Family Medicine; OTHER PHYSICIAN Internal Medicine Critical Care Medicine
PROC: 0W993ZZ Drainage of Right Pleural Cavity, Percutaneous Approach (ICD-10-PCS; 2024-08-18)
PROC: 5A09357 Assistance with Respiratory Ventilation, Less than 24 Consecutive Hours, Continuous Positive Airway Pressure (ICD-10-PCS; 2024-08-20)
DX: A41.9 Sepsis, unspecified organism (principal); G93.41 Metabolic encephalopathy; I26.99 Other pulmonary embolism without acute cor pulmonale; J96.01 Acute respiratory failure with hypoxia; J96.02 Acute respiratory failure with hypercapnia; J69.0 Pneumonitis due to inhalation of food and vomit; J18.9 Pneumonia, unspecified organism; R57.1 Hypovolemic shock; Z66 Do not resuscitate; Z51.5 Encounter for palliative care; I50.43 Acute on chronic combined systolic (congestive) and diastolic (congestive) heart failure; J91.8 Pleural effusion in other conditions classified elsewhere; C78.00 Secondary malignant neoplasm of unspecified lung; C79.00 Secondary malignant neoplasm of unspecified kidney and renal pelvis; C18.9 Malignant neoplasm of colon, unspecified; I5A Non-ischemic myocardial injury (non-traumatic); N17.9 Acute kidney failure, unspecified; I11.0 Hypertensive heart disease with heart failure; E87.6 Hypokalemia; D63.0 Anemia in neoplastic disease; R73.9 Hyperglycemia, unspecified; I05.0 Rheumatic mitral stenosis; N93.9 Abnormal uterine and vaginal bleeding, unspecified; I25.5 Ischemic cardiomyopathy; E78.00 Pure hypercholesterolemia, unspecified; Z96.652 Presence of left artificial knee joint; Z92.3 Personal history of irradiation; Z90.722 Acquired absence of ovaries, bilateral; Z90.710 Acquired absence of both cervix and uterus; Z85.42 Personal history of malignant neoplasm of other parts of uterus; Z85.3 Personal history of malignant neoplasm of breast; Z79.899 Other long term (current) drug therapy; Z20.822 Contact with and (suspected) exposure to COVID-19; Z82.49 Family history of ischemic heart disease and other diseases of the circulatory system
CPT/HCPCS: 88305; 32555; 71045; 71275; 74177; 74230; 76604; 80048; 80053; 81003; 82607; 82728; 82746; 82805; 82945; 83540; 83550; 83615; 83735; 83880; 83986; 84100; 84157; 84484; 85014; 85018; 85025; 85027; 85045; 85379; 85730; 86850; 86900; 86901; 87015; 87040; 87070; 87205; 87502; 87641; 87811; 88112; 89051; 92526; 92610; 92611; 93005; 93306; 93970; 94640; 94660; 97110; 97163; 97166; 97530; 99285; J2916; Q9967